=== PATIENT | female | born 2000 | race Caucasian/White ===

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

== ENCOUNTER 2021-01-01 08:51 | Emergency (ER) | payer MEDICAID, SELFPAY ==
--- NOTE | 2021-01-01 09:00 | RT.EKG_ITS ---
APPROVED REPORT Exam: Resting ECG Patient Location: E HR:81 bpm ECG Measurements Heart Rate 81 AXIS UT 143 P 71 QRSd 64 QRS 79 QT 348 T 59 QTc 405 Conclusion Sinus rhythm...normal P axis, V-rate 60- 99
[2021-01-01 09:09] VITALS: BP 121/74; PULSE 81; RESP 16; TEMP 36.9; O2SAT 98
--- NOTE | 2021-01-01 09:35 | ED.GENADUL_ITS ---
Discharge Plan Disposition Patient Disposition: HOME Condition: Fair Discharge Details Clinical Impression: Nausea & vomiting, Depression, Eating disorder Primary Care Provider: Danyelle Hernandez ED Provider: Gisell Peterson Home Meds and New Rx's Prescriptions: New ondansetron HCl [Zofran] 4 mg tablet 4 mg PO Q6H PRN (Reason: nausea and vomiting) Qty: 10 RF: 0 Continued Latuda 20 mg tablet 20 mg PO DAILY RF: 0 Nexplanon 68 mg implant 1 implant subdermal ONCE RF: 0 divalproex [Depakote] 250 mg tablet,delayed release (DR/EC) 500 mg PO HS RF: 0 acetaminophen 500 mg tablet 500 mg PO Q6H PRN (Reason: pain) Qty: 60 RF: 0 ibuprofen 600 mg tablet 600 mg PO TID PRN (Reason: pain) Qty: 60 RF: 0 pantoprazole [Protonix] 40 mg tablet,delayed release (DR/EC) 40 mg PO DAILY Qty: 30 RF: 0 albuterol sulfate [ProAir HFA] 200 PUFF HFA aerosol inhaler 2 puff Inhalation PRN PRNRF: 0 Fluticasone/Salmeterol [Advair 100-50 Diskus] 1 EACH Blst.W.Dev 1 ea Inhalation BID RF: 0 Discharge Instructions Instructions: Depression (ED), Acute Nausea and Vomiting (ED) Additional Instructions: Your labs are reassuring. However, I am concerned about your long-term health with your current eating habits. To help avoid stomach upset, please stick with a bland diet temporarily but encourage small frequent meals. Encourage fluid intake. Please continue with your medications as previously Zofran has been prescribed in the event that you have any recurrence of your nausea. Please take this as prescribed. The plan outlined by mental health is for you to begin receiving psychiatric care once again. Please begin weekly therapy sessions. Please call them anytime if you have any concerns or increased symptoms [phone] If you develop thoughts of self-harm, thoughts of harming others, inability stay hydrated, increased pain, fevers or other new/worsening symptoms please seek care urgently once again. Please follow up with your primary care this week for reevaluation. Call tomorrow to schedule appointment. Referrals: Danyelle Hernandez NP [Primary Care Provider] - Discharge Data Discharge Date/Time-TO BE ENTERED AT DEPARTURE: 01/01/21 12:05 Medical Decision Making Patient is a pleasant 20-year-old female presenting today with chief complaint of nausea and vomiting. She reports that she has had issues with eating disorder historically. States that 3 weeks ago mcmill[place] the anniversary of of a loved one. She reports that since that time she been having current symptoms. She reports that she has been waxing and waning through periods of anorexia followed by binge eating and self-induced vomiting. She reports that she has been going approximately 6 days with only water for p.o. intake. Will then binge eat for 1 to 2 days. States that she made herself vomit just prior to arrival. She is now having difficulty with more persistent nausea. She denies any thoughts of self-harm or suicidal ideation. Patient does not want inpatient psychiatric care. Rather, she would prefer outpatient management but does seem to have good personal insight regarding going on currently. On exam, patient appears sad and worried. She is crying while talking. She is thin. Her abdomen is otherwise benign. See no evidence to suggest a surgical abdomen. She appears well-hydrated. Vital signs within normal limit. Concerned for eating disorder. Will obtain baseline labs as I am concerned potential electrolyte abnormalities. We will hydrate the patient, treat her nausea and request mental health consultation. Labs reviewed. No leukocytosis. Stable H&H. Anion gap of 13 otherwise no significant abnormality. Electrolytes within normal limits. Did check a troponin with a concern for significant malnutrition in the setting of an eating disorder, WNL. EKG was obtained and reviewed by Dr. Alcantara. Patient is in sinus rhythm with a rate of 81. No acute ischemic changes noted. Patient was evaluated by Diana with [facility] human services. She has known the patient for several years and they have a very good rapport with her. She determined that the patient had also stopped attending counseling about 6 months ago. She is interested ins tarting again and will being weekly sessions during this difficult time. She will also help get her f/u with [facility]. Patient reassessed, she is feeling improved and would like d/c to home. She will call PCP to schedule prompt f/u. She has contact information for [facility]. She will return with any new/worsening sytmpoms. We discussed advancement of her diet. Food is now causing upset so we discussed methods that may allow her to be more successful. All of her questions and concerns were addressed, she is in agreementw itht his plan. HPI General Mode of arrival: ambulatory . Date/Time Provider Initiated Documentation: 01/01/21 09:35 . Limitations to Documentation: no limitations . Information obtained by: patient, RN notes reviewed and old records reviewed . History of Present Illness 20 year old F presents to the emergency department with the chief complaint of nausea and self-induced vomiting, described as moderate, Quality is described as other (cramping and nausea), and is localized to the abdomen. Patient reports no radiation. Patient started experiencing this week(s) (3) and it has been constant (waxes and wanes between anorexia and binge/purge). No relieving factors improve symptom(s), Other factors that worsen symptoms (recent increase in social stressors) . Patient notes loss of appetite and nausea/vomiting; denies chest pain, diaphoresis, fever/chills, rash and shortness of breath. Patient did receive the following treatments prior to arrival, none Related Data Home Medications Medication Instructions Recorded Confirmed albuterol sulfate [ProAir HFA] 2 puff INHALATION PRN PRN 05/19/17 01/01/21 Fluticasone/Salmeterol [Advair 1 ea INHALATION BID 03/06/18 01/01/21 100-50 Diskus] divalproex 250 mg tablet,delayed 500 mg PO HS tab 11/27/18 01/01/21 release acetaminophen 500 mg PO Q6H PRN #60 tab 03/03/19 01/01/21 ibuprofen 600 mg PO TID PRN #60 tab 03/03/19 01/01/21 lurasidone 20 mg tablet 20 mg PO DAILY 04/08/19 01/01/21 pantoprazole [Protonix] 40 mg PO DAILY #30 tab 01/21/20 01/01/21 etonogestrel 68 mg subdermal 1 implant SUBDERMAL ONCE 12/16/20 01/01/21 implant ondansetron HCl [Zofran] 4 mg PO Q6H PRN #10 tab 01/01/21 Previous Rx's Medication Instructions Recorded acetaminophen 500 mg PO Q6H PRN #60 tab 03/03/19 ibuprofen 600 mg PO TID PRN #60 tab 03/03/19 pantoprazole [Protonix] 40 mg PO DAILY #30 tab 01/21/20 ondansetron HCl [Zofran] 4 mg PO Q6H PRN #10 tab 01/01/21 Allergies Allergy/AdvReac Type Severity Reaction Status Date / Time doxycycline AdvReac Intermediate vomiting Verified 12/16/20 12:55 General Stated Complaint: Nausea/Vomit/Diar SIS: 3 Review of Systems Constitutional Constitutional: Reports as per HPI, Denies chills, Denies fatigue, Denies fever(s) and Denies headache(s) ENT Ears, Nose, Mouth, and Throat: Denies headache(s) Cardiovascular Cardiovascular: Reports as per HPI, Denies chest pain and Denies dyspnea Respiratory Respiratory: Reports as per HPI, Denies cough and Denies dyspnea Gastrointestinal Gastrointestinal: Reports as per HPI Musculoskeletal Musculoskeletal: Reports as per HPI and Denies back pain Integumentary/Breasts Skin/Breast: Reports as per HPI and Denies rash Neurologic Neurologic: Reports as per HPI and Denies headache(s) Psychiatric Psychiatric: Reports as per HPI, Reports anxiety, Reports change in appetite, Reports depression, Denies hopelessness, Denies homicidal ideation and Denies suicidal ideation Endocrine Endocrine: Denies fatigue PFSH Medical History Anxiety Asthma Depression Presence of subdermal contraceptive implant (04/18/20) Surgical History Hx of arthroscopic knee surgery Tonsillectomy and adenoidectomy age 10 Family History Mother No problems noted. Father No problems noted. Other Cancer Diabetes Social History Smoking/Tobacco Use Status: Current every day Tobacco Type: e-cigarettes Smoking risk assessment performed?: Yes Alcohol Intake: current Alcohol Intake frequency: a few times a month Alcohol type: hard liquor Drug use: Current Sobriety Substance use type: marijuana Details: e cigarette pt. uses daily Do you feel safe at home: Yes Do you feel safe in your relationship?: Yes Female Reproductive History Menstrual control method: none and progesterone injection Exam Const General: cooperative, healthy appearing, comfortable, no acute distress and well developed Nutritional Appearance: well nourished and thin Orientation: alert and awake HENMT Head: normal to inspection Mouth: moist mucous membranes Resp Effort & Inspection: normal respiratory effort, able to speak in complete sentences and no respiratory distress Auscultation: clear to auscultation bilaterally, no rales, no rhonchi and no wheezes Cardio Rate: regular rate Rhythm: regular rhythm Heart Sounds: S1 normal and S2 normal GI Inspection: normal to inspection and non-distended Palpation: soft, no hepatosplenomegaly and nontender Percussion: normal to percussion Auscultation: normal bowel sounds Skin General skin exam: no rashes or lesions noted Trauma: no lacerations or abrasions Neuro General: patient alert and patient awake Cognition: normal cognition Speech: speech normal Gait: normal gait Psych Appearance: grossly normal and well kempt Mental Status: mental status grossly normal Speech and Movement: speech and movement normal Mood: congruent mood Affect: sad Attitude: cooperative Thought Process: normal Thought Content: no homicidality and suicidality Insight: fair Judgment: fair Course Vital Signs Vital signs: Vital Signs Temperature 36.9 C 01/01/21 09:09 Pulse 81 01/01/21 09:09 Respiratory Rate 16 01/01/21 09:09 Blood Pressure 121/74 01/01/21 09:09 Pulse Oximetry 98 01/01/21 09:09 Temperature 36.9 C 01/01/21 09:09 Temperature Source Oral 01/01/21 09:09 Pulse 81 01/01/21 09:09 Respiratory Rate 16 01/01/21 09:09 Respiratory Effort 01/01/21 09:11 Blood Pressure 121/74 01/01/21 09:09 Blood Pressure Position Supine 01/01/21 09:09 Pulse Oximetry 98 01/01/21 09:09 Oxygen Delivery Method Room Air 01/01/21 09:09 Oxygen Flow Rate 0 01/01/21 09:09
[2021-01-01 09:45] LABS: Absolute Basophil Count 0.06 10^3/uL (0.0-0.2); Absolute Eosinophil Count 0.33 10^3/uL (0.0-0.7); Absolute Lymphocyte Count 1.54 10^3/uL (1.2-3.4); Absolute Monocyte Count 0.26 10^3/uL (0.1-0.8); Absolute Neutrophil Count 3.35 10^3/uL (1.2-6.7); Basophils % 1.1; Lymphocytes % 27.8; MCH 30.6 pg (27.0-33.0); MCV 87.5 fL (80-95); MPV 11.8 fL (8.0-11.0); Monocytes % 4.7; Neutrophils % 60.4; Nucleated RBC 0 %; Platelet Count 307 10^3/uL (130-400); RBC 4.57 10^6/uL (3.93-5.22); RDW-SD 38.4 fL; WBC 5.54 10^3/uL (4.4-10.8)
[2021-01-01] MEDS: Lactated Ringers 1,000 ML 1000 ML IV (09:47)
[2021-01-01] MEDS: Ondansetron 4 MG TAB PO (09:59)
[2021-01-01 10:01] LABS: ALT 30 U/L (14-59); AST 11 U/L (15-37); Albumin 4.7 g/dL (3.4-5.0); Alkaline Phosphatase 59 U/L (46-116); Anion Gap 13.1 mmol/L (3-11); BUN 7 mg/dL (7-18); Bilirubin, Total 0.6 mg/dL (0.2-1.0); CO2 25.9 mmol/L (21.0-32.0); CREATININE 0.7 mg/dL (0.55-1.02); Calcium 9.5 mg/dL (8.5-10.1); Chloride 102 mmol/L (98-107); Glucose 90 mg/dL (74-106); Magnesium 1.9 mg/dL (1.8-2.4); Potassium 3.6 mmol/L (3.5-5.1); Sodium 141 mmol/L (136-145); Total Protein 7.9 g/dL (6.4-8.2)
[2021-01-01 10:06] LABS: Troponin I < 0.05 ng/mL (<0.06)
[2021-01-01 10:22] LABS: Bilirubin Negative (Negative); Blood Negative (Negative); Clarity Clear (Clear); Glucose Negative (Negative); Ketones Negative (Negative); Leukocyte Esterase Negative (Negative); Nitrite Negative (Negative); Specific Gravity 1.015 (1.005-1.025); Urobilinogen 0.2 EU/dL (Up TO 0.2)
--- NOTE | 2021-01-01 11:55 | PDOC.MHCN ---
Date of service: 01/01/21 Time of Service: 11:55 Mental Health Crisis Note Presenting Issue How did you arrive at the ED and why did you come: Pt arrived today of her own choice due to nausea and vomiting. She expressed feelings of depression and so an assessment was requested. Precipitating Factors Pt denied SI and HI and there are no signs of delusions. 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 She is fine meeting with this clinician today. EYE CONTACT: Eye contact is good MOOD: Mood appears depressed and worried. AFFECT: Affect is normal. APPETITE: Pt reported that a month ago she struggled with her symptoms relating to her eating disorder and began binging and purging and then not eating for up to 6 days at a time. She presented today because she is no longer needing to purge she is just unable to keep anything down. SLEEP(trouble falling/staying asleep: Pt reported poor sleep only a few hours a night. Plan Pt agreed to a check in tonight and it will be discussed if another one tomorrow would benefit. She will outreach to her therapist as will this clinician to request an increase in sessions back to once a week until she igets through this difficult time. This clinician will put in a referral to [facility] to see a prescriber again. Signature Clinician's Name/Title: Diana Sanchez MS, [facility] Emergency Services Clinician, [facility]
[2021-01-01 12:00] VITALS: PULSE 88; O2SAT 98
== END 2021-01-01 12:05 | disposition home or self-care (01) ==
PROVIDERS: Emergency Provider Physician Assistant; PCP Nurse Practitioner Family
DX: R11.2 Nausea with vomiting, unspecified (principal); F32.9 Major depressive disorder, single episode, unspecified; F50.02 Anorexia nervosa, binge eating/purging type
CPT/HCPCS: 36415; 80053; 81025; 93005; 96361; 96374; 99284; 81003; 83735; 84484; 85025; 93010; 99283; J8597

== ENCOUNTER 2021-03-06 14:55 | Emergency (ER) | payer MEDICAID, SELFPAY ==
[2021-03-06 15:01] VITALS: BP 118/77; PULSE 77; RESP 16; TEMP 37; O2SAT 99
[2021-03-06] MEDS: Lidocaine 5% Patch 1 PATCH TP (15:50)
[2021-03-06] MEDS: Acetaminophen 325 MG TAB 650 MG PO (15:50)
[2021-03-06 15:53] LABS: Bilirubin Negative (Negative); Blood Trace-lysed (Negative); Clarity Sl Cloudy (Clear); Glucose Negative (Negative); Ketones Negative (Negative); Leukocyte Esterase Trace (Negative); Nitrite Negative (Negative); Specific Gravity 1.025 (1.005-1.025); Urobilinogen 0.2 EU/dL (Up TO 0.2)
--- NOTE | 2021-03-06 16:00 | DI.RAD_ITS ---
Exam(s) XR LUMBAR SPINE COMPLETE EXAM: XR LUMBAR SPINE COMPLETE CLINICAL HISTORY: Lumbar spine pain. TECHNIQUE: 2D digital imaging was performed. COMPARISON: No exams were available for comparison FINDINGS: BONES: No fracture or destructive lesion. Vertebral bodies are unremarkable. No facet hypertrophy debi ntified. DISKS: Intervertebral disc spaces are maintained. ALIGNMENT: Lumbar spinal alignment is within normal limits. SOFT TISSUE: Normal. IMPRESSION: Unremarkable radiographs of the lumbar spine. DATA REPOSITORY: RADIATION DOSE DELIVERED:
[2021-03-06 16:02] LABS: Bacteria Rare HPF (Negative); C & S Indicated? No/Sq. Contamination; Crystals Negative HPF (Negative); Epithelial Cells Many HPF (Negative); Mucus Heavy (Negative); RBC 0-2 HPF (0-2)
--- NOTE | 2021-03-06 16:12 | ED.GENADUL_ITS ---
Discharge Plan Disposition Patient Disposition: HOME Condition: Stable Discharge Details Clinical Impression: Lumbago of lumbar region with sciatica Primary Care Provider: Danyelle Hernandez ED Provider: Binud Mckeon Home Meds and New Rx's Prescriptions: New cyclobenzaprine 10 mg tablet 10 mg PO TID PRN (Reason: muscle spasm) Qty: 10 RF: 0 No Action Latuda 20 mg tablet 20 mg PO DAILY RF: 0 Nexplanon 68 mg implant 1 implant subdermal ONCE RF: 0 divalproex [Depakote] 250 mg tablet,delayed release (DR/EC) 500 mg PO HS RF: 0 acetaminophen 500 mg tablet 500 mg PO Q6H PRN (Reason: pain) Qty: 60 RF: 0 ibuprofen 600 mg tablet 600 mg PO TID PRN (Reason: pain) Qty: 60 RF: 0 albuterol sulfate [ProAir HFA] 200 PUFF HFA aerosol inhaler 2 puff Inhalation PRN PRNRF: 0 Fluticasone/Salmeterol [Advair 100-50 Diskus] 1 EACH Blst.W.Dev 1 ea Inhalation BID RF: 0 Discharge Instructions Instructions: Low Back Strain (ED), Lower Back Exercises (ED) Additional Instructions: Take muscle relaxer as directed. Please take Tylenol or Ibuprofen with food every 4-6 hours as needed for pain and swelling. Alternate ice and heat. Do some light stretching. Follow up with primary care provider in 3-5 days. Return to ED sooner if any worsening or concerns. Increase oral fluids. Referrals: Danyelle Hernandez, [employer] [Primary Care Provider] - Medical Decision Making 20-year-old female presents to the ER chief complaint lower back pain which radiates down to her bilateral thighs. She reports that this began yesterday upon awakening. She denies any heavy lifting or known injuries. Denies any loss of bowel or bladder control. She has been trying ibuprofen Biofreeze. She also denies any dysuria, vaginal discharge, or bleeding. Denies any nausea vomiting diarrhea no abdominal pain. She does have a history of anxiety, depression and eating disorder. On initial exam she does have some midline L- spine tenderness and paraspinous tenderness worse on the left. Imaging protocol: XR of lumbosacral spine. Views: 4 or 5 views. COMPARISON: CT ABDOMEN PELVIS W 01/26/2019 6:19 PM FINDINGS: Bones/joints: Normal. No acute fracture. Normal alignment. Soft tissues: Unremarkable. IMPRESSION: No acute findings. Discussed x-ray results with patient also discussed her urine results. Urine shows trace blood trace leukocytes patient informs me that she is on her current menses which could explain the blood and leukocytes in her urine. I did discuss possible CT abdomen pelvis to rule out kidney stone. Patient declines at this time. Discussed home care including alternating Tylenol ibuprofen massage ice and heat. Follow-up with PCP and Ortho verbalized understanding. Did give patient some cyclobenzaprine here in department and prescription sent to pharmacy on file. HPI General Mode of arrival: ambulatory . Date/Time Provider Initiated Documentation: 03/06/21 15:01 . Limitations to Documentation: no limitations . Information obtained by: patient . HPI Narrative: 20-year-old female presents to the ER chief complaint lower back pain which radiates down to her bilateral thighs. She reports that this began yesterday upon awakening. She denies any heavy lifting or known injuries. She has been trying ibuprofen Biofreeze. She also denies any dysuria, vaginal discharge, or bleeding. Denies any nausea vomiting diarrhea no abdominal pain. She does have a history of anxiety, depression and eating disorder. On initial exam she does have some midline L- spine tenderness and paraspinous tenderness worse on the left. Related Data Home Medications Medication Instructions Recorded Confirmed albuterol sulfate [ProAir HFA] 2 puff INHALATION PRN PRN 05/19/17 03/06/21 Fluticasone/Salmeterol [Advair 1 ea INHALATION BID 03/06/18 03/06/21 100-50 Diskus] divalproex 250 mg tablet,delayed 500 mg PO HS tab 11/27/18 03/06/21 release acetaminophen 500 mg PO Q6H PRN #60 tab 03/03/19 03/06/21 ibuprofen 600 mg PO TID PRN #60 tab 03/03/19 03/06/21 lurasidone 20 mg tablet 20 mg PO DAILY 04/08/19 03/06/21 etonogestrel 68 mg subdermal 1 implant SUBDERMAL ONCE 12/16/20 03/06/21 implant cyclobenzaprine 10 mg PO TID PRN #10 tab 03/06/21 Previous Rx's Medication Instructions Recorded acetaminophen 500 mg PO Q6H PRN #60 tab 03/03/19 ibuprofen 600 mg PO TID PRN #60 tab 03/03/19 cyclobenzaprine 10 mg PO TID PRN #10 tab 03/06/21 Allergies Allergy/AdvReac Type Severity Reaction Status Date / Time doxycycline AdvReac Intermediate vomiting Verified 03/06/21 15:06 General Stated Complaint: Nk/Back Pain SIS: 4 Review of Systems Narrative: Constitutional: Negative for weight loss, alert and oriented, well groomed, normal body habitus, appears comfortable. HEENT: Denies trauma, headaches, blurry vision, nasal discharge, sore throat, trouble swallowing. Chest: Denies chest pain, palpitations, irregular rhythm, hypertension. Respiratory: Denies Shortness of breath, cough, hemoptysis. GI: Denies abdominal pain, nausea, vomiting, diarrhea, constipation. : Denies dysuria, hematuria, flank pain, rectal bleeding. Neuro: Denies dizziness, blurry vision, weakness, syncope, headache or facial numbness. Hematologic: Denies easy bruising, intolerance to heat or cold, hair loss. PFSH Medical History Anxiety Asthma Depression Presence of subdermal contraceptive implant (04/18/20) Surgical History Hx of arthroscopic knee surgery Tonsillectomy and adenoidectomy age 10 Family History Mother No problems noted. Father No problems noted. Other Cancer Diabetes Social History Smoking/Tobacco Use Status: Current every day Tobacco Type: e-cigarettes Smoking risk assessment performed?: Yes Alcohol Intake: current Alcohol Intake frequency: a few times a month Alcohol type: hard liquor Drug use: Current Sobriety Substance use type: marijuana Details: e cigarette pt. uses daily Do you feel safe at home: Yes Do you feel safe in your relationship?: Yes Female Reproductive History Menstrual control method: none and progesterone injection Exam Narrative Exam Narrative: Constitutional: Alert and oriented x3. Appears stated age. Normal body habitus. Head: Normocephalic, no trauma. Eyes: Pupils PERRLA, Red reflex noted, EOM's intact. Eyelids symmetrical without lesions, discharge, or swelling. ENT: Bilateral TM's WNL, External ear normal to inspection, no mastoid TTP, swelling, or erythema, Nasal turbinates WNL, no nasal discharge. Normal dentition, Posterior pharynx WNL, no exudate. Chest: RRR, Normal S1, S2, distal pulses intact. Resp: Lungs clear to auscultation bilaterally, no wheezes, rales, or rhonchi. Abdomen: Soft, nondistended nontender to palpation quadrants Musculoskeletal: Normal gait, 5/5 strength to all four extremities. Patient does have some midline L-spine tenderness with palpation, left-sided paraspinal tenderness with palpation. Skin: No suspicious rashes or lesions. Capillary refill less than 2 sec. Neurologic: Cranial nerves II-XII intact. Alert and oriented x 3. DTR's intact. Hematologic/Lymphatic: No ecchymosis, no lymphadenopathy. Course Vital Signs Vital signs: Vital Signs Temperature 37 C 03/06/21 15:01 Pulse 77 03/06/21 15:01 Respiratory Rate 16 03/06/21 15:01 Blood Pressure 118/77 03/06/21 15:01 Pulse Oximetry 99 03/06/21 15:01 Temperature 37 C 03/06/21 15:01 Temperature Source Skin 03/06/21 15:01 Pulse 77 03/06/21 15:01 Respiratory Rate 16 03/06/21 15:01 Respiratory Effort Non-Labored 03/06/21 15:01 Blood Pressure 118/77 03/06/21 15:01 Blood Pressure Position Sitting 03/06/21 15:01 Pulse Oximetry 99 03/06/21 15:01 Oxygen Delivery Method Room Air 03/06/21 15:01 Oxygen Flow Rate 0 03/06/21 15:01 Pain Level 9 03/06/21 15:10 Lab/Test Results Lab/Test Results: Laboratory Tests Range/Units 03/06/21 15:44 Urine Color (Yellow) Yellow Urine Clarity (Clear) Sl Cloudy Urine pH (5-8) 7.0 Ur Specific [place] (1.005-1.025) 1.025 Urine Protein (Negative) mg/dL 30 H Urine Ketones (Negative) mg/dL Negative Urine Blood (Negative) Trace-lysed H Urine Nitrite (Negative) Negative Urine Bilirubin (Negative) Negative Urine Urobilinogen (Up TO 0.2) EU/dL 0.2 Ur Leukocyte Esterase (Negative) Trace H Urine RBC (0-2) HPF 0-2 Urine WBC (0-5) HPF 5-10 Ur Epithelial Cells (Negative) HPF Many Urine Crystals (Negative) HPF Negative Urine Bacteria (Negative) HPF Rare Urine Mucus (Negative) Heavy Ur Culture Indicated? No/Sq. Contamination Urine Glucose (Negative) mg/dL Negative POC- Test(urine) Negative
[2021-03-06] MEDS: Cyclobenzaprine 10 MG TAB PO (16:28)
--- NOTE | 2021-03-06 16:59 | DI.VRAD_ITS ---
PROCEDURE INFORMATION: Exam: XR Lumbosacral Spine Exam date and time: 03/06/2021 4:16 PM Age: 20 years old Clinical indication: Other: Lower back pain TECHNIQUE: Imaging protocol: XR of the lumbosacral spine. Views: 4 or 5 views. COMPARISON: CT ABDOMEN PELVIS W 01/26/2019 6:19 PM FINDINGS: Bones/joints: Normal. No acute fracture. Normal alignment. Soft tissues: Unremarkable. IMPRESSION: No acute findings. Dictated and Authenticated by: Nathaniel Espinoza MD. Ordering:GEOVANY Ruano MD
== END 2021-03-06 17:38 | disposition home or self-care (01) ==
PROVIDERS: Emergency Provider Registered Nurse Emergency; PCP Nurse Practitioner Family
DX: M54.42 Lumbago with sciatica, left side (principal); M54.41 Lumbago with sciatica, right side
CPT/HCPCS: 81025; 99283; 72110; 81003; 81015

== ENCOUNTER 2021-03-13 19:21 | Outpatient (REF) | payer MEDICAID, SELFPAY ==
[2021-03-13 20:53] LABS: HCT 40.1 % (36.0-46.0); HGB 13.4 g/dL (11.2-15.7); MCH 29.4 pg (27.0-33.0); MCHC 33.4 % (32.0-36.0); MCV 87.9 fL (80-95); MPV 12.2 fL (8.0-11.0); Platelet Count 306 10^3/uL (130-400); RBC 4.56 10^6/uL (3.93-5.22); RDW 11.8 % (11.7-14.6); WBC 6.05 10^3/uL (4.4-10.8)
[2021-03-13 21:23] LABS: Anion Gap 11.2 mmol/L (3-11); BUN 17 mg/dL (7-18); CO2 25.8 mmol/L (21.0-32.0); CREATININE 0.7 mg/dL (0.55-1.02); Calcium 9.8 mg/dL (8.5-10.1); Chloride 105 mmol/L (98-107); Glucose 90 mg/dL (74-106); Magnesium 2.1 mg/dL (1.8-2.4); Sodium 142 mmol/L (136-145); TSH 0.87 uIU/mL (0.52-4.13)
[2021-03-13 21:37] LABS: Vitamin D 25 Total 20.9 ng/mL (30-100)
== END 2021-03-13 19:22 | disposition home or self-care (01) ==
LOC: NCHCN 19:21
PROVIDERS: PCP Nurse Practitioner Family; Visit Provider Internal Medicine
DX: Z00.00 Encounter for general adult medical examination without abnormal findings (principal); F50.02 Anorexia nervosa, binge eating/purging type; F32.9 Major depressive disorder, single episode, unspecified
CPT/HCPCS: 80048; 82306; 85027; 83735; 84443

== ENCOUNTER 2021-04-19 13:12 | Emergency (ER) | payer MEDICAID, SELFPAY ==
[2021-04-19 13:17] VITALS: BP 119/69; PULSE 99; RESP 14; TEMP 36.7; O2SAT 100
--- NOTE | 2021-04-19 13:38 | ED.GENADUL_ITS ---
Discharge Plan Disposition Patient Disposition: HOME Condition: Stable Discharge Details Clinical Impression: Nausea and vomiting, Epigastric abdominal pain, Chronic nausea, Chronic abdominal pain Primary Care Provider: Danyelle Hernandez ED Provider: Ilana Dhaliwal Home Meds and New Rx's Prescriptions: New sucralfate [Carafate] 1 gram tablet 1 gm PO QACHS Qty: 14 RF: 0 ondansetron 4 mg tablet,disintegrating 4 mg PO TID PRN (Reason: nausea and vomiting) Qty: 6 RF: 0 famotidine [Pepcid] 20 mg tablet 20 mg PO DAILY Qty: 14 RF: 0 Continued etonogestrel-ethinyl estradiol [NuvaRing] 0.12-0.015 mg/24 hr ring 1 vag ring vaginal Q4W Qty: 3 RF: 4 acetaminophen 500 mg tablet 500 mg PO Q6H PRN (Reason: pain) Qty: 60 RF: 0 ibuprofen 600 mg tablet 600 mg PO TID PRN (Reason: pain) Qty: 60 RF: 0 calcium carbonate-vit D3-min 600 mg calcium- 400 unit tablet RF: 0 albuterol sulfate [ProAir HFA] 200 PUFF HFA aerosol inhaler 2 puff Inhalation PRN PRNRF: 0 cyclobenzaprine 10 mg tablet 10 mg PO TID PRN (Reason: muscle spasm) Qty: 10 RF: 0 Discharge Instructions Instructions: Acute Nausea and Vomiting (ED), Epigastric Pain (ED) Additional Instructions: Drink plenty of fluids and get plenty of rest. Take the Zofran as needed and directed for nausea and vomiting. Take the Pepcid and Carafate daily as directed. Your prescriptions have been sent electronically to your pharmacy. Call the pharmacy to make sure your prescriptions are ready before pickup. Take the prescriptions as directed. Call the general surgery office tomorrow to schedule a follow-up appointment for reevaluation and for possible outpatient upper endoscopy for further evaluation of your chronic nausea and upper abdominal pain. Return immediately to the emergency department if you develop any worsening or new concerning symptoms such as fever, persistent vomiting, worsening pain or any other concerns. Referrals: Mansi Greer MD [ [facility] STAFF PHYSICIAN] - Discharge Data Discharge Date/Time-TO BE ENTERED AT DEPARTURE: 04/19/21 17:55 Discharge Physician: Ilana Dhaliwal Medical Decision Making <John Alcantara MD - Last Filed: 04/19/21 14:09> 20 yo female with hx of anorexia, asthma, who comes in with cc of upper abdomen pain intermittent for a week and lack of appetite. Denies vomit, fevers, chest pain, dyspnea. Denies alcohol or drug use, does vape per patient. She has tenderness on exam in the ruq, epigastric area and left upper abdomen. She has no lower abdomen tenderness. Suspect gastritis vs hepatitis vs pancreatitis, less likely cholecystitis. Will obtain labs, u/s and administer IVF and reassess. Will also treat for possible gastritis. She has no lower abdomen tenderness so doubt entities such as ovarian torsion, appendicitis or diverticulitis pt signed out to oncoming provider pending u/s results and reevaluation Differential Diagnosis Differential Diagnosis: gastritis, hepatitis, cholecystitis Lab Data Lab results reviewed: Yes I reviewed the patient's lab results. <Ilana Dhaliwal DO - Last Filed: 04/19/21 22:45> 1500 -- please see Dr. Alcantara's note for initial presentation, exam and plan. Case endorsed to follow-up on labs and ultrasound and final disposition. Labs reviewed. Normal white blood cell count. Normal electrolytes. Normal lipase. Urine test negative. 1730 -- Patient reassessed and her symptoms unchanged. She was given Zofran, Pepcid and Carafate p.o. with some improvement of symptoms and feels good to go home. Prescription sent electronically to her pharmacy. She has anorexia and bulimia which is being followed by her pcp and she has been referred to behavioral health. She was placed on surgery follow-up list for reevaluation and consideration for upper endoscopy if symptoms do not improve or worsen. Usual and customary return precautions given prior to discharge. Medical Records Medical records reviewed: Yes I reviewed the patient's medical records. Imaging Data Radiologic Study: Radiologist's impression: US ABDOMEN CLINICAL HISTORY: upper abdomen pain TECHNIQUE: Ultrasound of complete upper abdomen performed using standard protocol. COMPARISON: No exams were available for comparison FINDINGS: There is no ascites evident. LIVER: There are no hepatic lesions evident nor obvious dilatation of intrahepatic ducts. GALLBLADDER/BILIARY: There are no gallstones. No gallbladder wall edema nor pericholecystic fluid. The common hepatic duct isnot dilated, measuring 2-3mm at the level of xavi hepatis. PANCREAS: There is no evidence of pancreatic mass nor dilatation of the pancreatic duct. SPLEEN: The spleen is not enlarged and there are no intrasplenic lesions evident. KIDNEYS:Kidneys exhibit normal size with no evidence of solid mass, calculus, nor hydronephrosis. No cortical cysts evident. ABDOMINAL AORTA: There is no evidence of abdominal aortic aneurysm. IVC: Normal diameter where visualized. Other: Incidentally noted is biphasic flow in the portal vein, this of questionable significance. IMPRESSION: 1. No evidence of cholelithiasis nor dilatation of the biliary tree. 2. No other significant ultrasound findings in the upper abdomen. 3. Incidentally noted is biphasic blood flow in the portal vein. This of questionable significance. Lab Data Lab results reviewed: Yes I reviewed the patient's lab results. Labs: Laboratory Tests Range/Units 04/19/21 04/19/21 04/19/21 13:50 13:50 17:05 WBC (4.4-10.8) 10^3/uL 5.45 RBC (3.93-5.22) 10^6/uL 4.51 Hgb (11.2-15.7) g/dL 13.2 Hct (36.0-46.0) % 39.8 MCV (80-95) fL 88.2 MCH (27.0-33.0) pg 29.3 MCHC (32.0-36.0) % 33.2 RDW (11.7-14.6) % 12.2 Plt Count (130-400) 10^3/uL 325 MPV (8.0-11.0) fL 10.9 Immature Gran % 0.2 Neutrophils % 55.1 Lymphocytes % 31.0 Monocytes % 5.3 Eosinophils % 7.3 Basophils % 1.1 Nucleated RBC % % 0 Absolute Neutrophils (1.2-6.7) 10^3/uL 3.00 Absolute Lymphocytes (1.2-3.4) 10^3/uL 1.69 Absolute Monocytes (0.1-0.8) 10^3/uL 0.29 Absolute Eosinophils (0.0-0.7) 10^3/uL 0.40 Absolute Basophils (0.0-0.2) 10^3/uL 0.06 Sodium (136-145) mmol/L 141 Potassium (3.5-5.1) mmol/L 3.5 Chloride (98-107) mmol/L 103 Carbon Dioxide (21.0-32.0) mmol/L 29.2 Anion Gap (3-11) mmol/L 8.8 BUN (7-18) mg/dL 11 Creatinine (0.55-1.02) mg/dL 0.7 Estimated GFR/1.73 m2 (mL/min/1.73m2) >= 60.00 Glucose (74-106) mg/dL 92 Calcium (8.5-10.1) mg/dL 9.4 Magnesium (1.8-2.4) mg/dL 1.9 Total Bilirubin (0.2-1.0) mg/dL 0.7 Conjugated Bilirubin (0.0-0.2) mg/dL 0.1 AST (15-37) U/L 12 L ALT (14-59) U/L 25 Alkaline Phosphatase (46-116) U/L 59 Total Protein (6.4-8.2) g/dL 7.8 Albumin (3.4-5.0) g/dL 4.8 Lipase (73-393) U/L 132 Urine Color (Yellow) Yellow Urine Clarity (Clear) Clear Urine pH (5-8) 7.0 Ur Specific [place] (1.005-1.025) 1.020 Urine Protein (Negative) mg/dL Negative Urine Ketones (Negative) mg/dL Negative Urine Blood (Negative) Negative Urine Nitrite (Negative) Negative Urine Bilirubin (Negative) Negative Urine Urobilinogen (Up TO 0.2) EU/dL 0.2 Ur Leukocyte Esterase (Negative) Negative Urine Glucose (Negative) mg/dL Negative HPI <John Alcantara MD - Last Filed: 04/19/21 14:09> General Mode of arrival: ambulatory . Date/Time Provider Initiated Documentation: 04/19/21 13:13 . Limitations to Documentation: no limitations . Information obtained by: patient . History of Present Illness 20 year old F presents to the emergency department with the chief complaint of abdomen pain, described as moderate, Quality is described as aching, Patient started experiencing this week(s) (1) and it has been intermittent. No relieving factors improve symptom(s), No exacerbating factors reported . Patient notes other (no appetite). Patient did receive the following treatments prior to arrival, none Related Data Home Medications Medication Instructions Recorded Confirmed albuterol sulfate [ProAir HFA] 2 puff INHALATION PRN PRN 05/19/17 04/19/21 acetaminophen 500 mg PO Q6H PRN #60 tab 03/03/19 04/19/21 ibuprofen 600 mg PO TID PRN #60 tab 03/03/19 04/19/21 cyclobenzaprine 10 mg PO TID PRN #10 tab 03/06/21 04/19/21 etonogestrel 0.12 mg-ethinyl 1 vag ring VAGINAL Q4W #3 ea 03/20/21 04/19/21 estradiol 0.015 mg/24 hr vaginal ring calcium carbonate-vit D3-min tab 04/19/21 04/19/21 famotidine [Pepcid] 20 mg PO DAILY #14 tab 04/19/21 ondansetron 4 mg PO TID PRN #6 tab 04/19/21 sucralfate [Carafate] 1 gm PO QACHS #14 tab 04/19/21 Previous Rx's Medication Instructions Recorded acetaminophen 500 mg PO Q6H PRN #60 tab 03/03/19 ibuprofen 600 mg PO TID PRN #60 tab 03/03/19 cyclobenzaprine 10 mg PO TID PRN #10 tab 03/06/21 etonogestrel 0.12 mg-ethinyl 1 vag ring VAGINAL Q4W #3 ea 03/20/21 estradiol 0.015 mg/24 hr vaginal ring famotidine [Pepcid] 20 mg PO DAILY #14 tab 04/19/21 ondansetron 4 mg PO TID PRN #6 tab 04/19/21 sucralfate [Carafate] 1 gm PO QACHS #14 tab 04/19/21 Allergies Allergy/AdvReac Type Severity Reaction Status Date / Time doxycycline AdvReac Intermediate vomiting Verified 04/19/21 13:20 amoxicillin AdvReac Unverified 04/19/21 13:20 General Stated Complaint: Abd Prob SIS: 3 Review of Systems <John Alcantara MD - Last Filed: 04/19/21 14:09> All systems reviewed & are unremarkable except as noted in HPI and below Constitutional Constitutional: Denies chills, Denies fever(s) and Denies weakness Cardiovascular Cardiovascular: Denies chest pain and Denies dyspnea Respiratory Respiratory: Denies cough and Denies dyspnea Gastrointestinal Gastrointestinal: Denies vomiting Musculoskeletal Musculoskeletal: Denies joint swelling Neurologic Neurologic: Denies weakness PFSH <John Alcantara MD - Last Filed: 04/19/21 14:09> Medical History Anxiety Asthma Depression Surgical History Hx of arthroscopic knee surgery Tonsillectomy and adenoidectomy age 10 Family History Mother No problems noted. Father No problems noted. Other Cancer Diabetes Social History (Updated 04/09/21 @ 21:44 by Stephanie Wheeler MD) Smoking/Tobacco Use Status: Current every day Tobacco Type: e-cigarettes Smoking risk assessment performed?: Yes Alcohol Intake: former Drug use: Current Sobriety Substance use type: marijuana Details: e cigarette pt. 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 Do you feel safe at home: Yes Do you feel safe in your relationship?: Yes Female Reproductive History Menstrual control method: none and progesterone injection Exam <John Alcantara MD - Last Filed: 04/19/21 14:09> Const General: no acute distress Orientation: alert [facility] Head: normal to inspection Ears: external ears normal General nose exam: external nose normal Mouth: moist mucous membranes Eyes General: appearance normal, both eyes and all related structures Neck Neck: normal visual inspection Resp Effort & Inspection: normal respiratory effort and able to speak in complete sentences Cardio Rate: regular rate GI Palpation: soft, not rigid and tender Skin General skin exam: no rashes or lesions noted Neuro General: patient alert and patient oriented x3 Extrem General: normal to inspection Psych Mental Status: mental status grossly normal Course <John Alcantara MD - Last Filed: 04/19/21 14:09> Vital Signs Vital signs: Vital Signs Temperature 36.7 C 04/19/21 13:17 Pulse 99 H 04/19/21 13:17 Respiratory Rate 14 04/19/21 13:17 Blood Pressure 119/69 04/19/21 13:17 Pulse Oximetry 100 04/19/21 13:17 Temperature 36.7 C 04/19/21 13:17 Temperature Source Skin 04/19/21 13:17 Pulse 99 H 04/19/21 13:17 Respiratory Rate 14 04/19/21 13:17 Respiratory Effort Non-Labored 04/19/21 13:22 Blood Pressure 119/69 04/19/21 13:17 Blood Pressure Position Sitting 04/19/21 13:17 Pulse Oximetry 100 04/19/21 13:17 Oxygen Delivery Method Room Air 04/19/21 13:17 Oxygen Flow Rate 0 04/19/21 13:17 Pain Level 6 04/19/21 13:17 Sign Out <John Alcantara MD - Last Filed: 04/19/21 14:09> Sign Out Data: Sign Out Comment: history of anorexia, intermittent upper abdomen pain no lower abdomen tenderness, pending abdomen ultrasound Last updated by John Alcantara MD at 04/19/21 14:08
--- NOTE | 2021-04-19 13:45 | DI.US_ITS ---
Exam(s) US ABDOMEN EXAM: US ABDOMEN CLINICAL HISTORY: upper abdomen pain TECHNIQUE: Ultrasound of complete upper abdomen performed using standard protocol. COMPARISON: No exams were available for comparison FINDINGS: There is no ascites evident. LIVER: There are no hepatic lesions evident nor obvious dilatation of intrahepatic ducts. GALLBLADDER/BILIARY: There are no gallstones. No gallbladder wall edema nor pericholecystic fluid. The common hepatic duct isnot dilated, measuring 2-3mm at the level of xavi hepatis. PANCREAS: There is no evidence of pancreatic mass nor dilatation of the pancreatic duct. SPLEEN: The spleen is not enlarged and there are no intrasplenic lesions evident. KIDNEYS:Kidneys exhibit normal size with no evidence of solid mass, calculus, nor hydronephrosis. No cortical cysts evident. ABDOMINAL AORTA: There is no evidence of abdominal aortic aneurysm. IVC: Normal diameter where visualized. Other: Incidentally noted is biphasic flow in the portal vein, this of questionable significance. IMPRESSION: 1. No evidence of cholelithiasis nor dilatation of the biliary tree. 2. No other significant ultrasound findings in the upper abdomen. 3. Incidentally noted is biphasic blood flow in the portal vein. This of questionable significance. DATA REPOSITORY:
[2021-04-19] MEDS: Normal Saline 1,000 ML 1000 ML IV (13:56)
[2021-04-19] MEDS: Normal Saline Flush 10 ML SYR IVP (13:57)
[2021-04-19 14:05] LABS: Abs Immature Grans 0.01 10^3/uL (0.0-0.06); Absolute Basophil Count 0.06 10^3/uL (0.0-0.2); Absolute Lymphocyte Count 1.69 10^3/uL (1.2-3.4); Absolute Monocyte Count 0.29 10^3/uL (0.1-0.8); Basophils % 1.1; Eosinophils % 7.3; HCT 39.8 % (36.0-46.0); HGB 13.2 g/dL (11.2-15.7); Immature Grans % 0.2; MCH 29.3 pg (27.0-33.0); MCHC 33.2 % (32.0-36.0); MCV 88.2 fL (80-95); MPV 10.9 fL (8.0-11.0); Monocytes % 5.3; Neutrophils % 55.1; Nucleated RBC 0 %; Platelet Count 325 10^3/uL (130-400); RBC 4.51 10^6/uL (3.93-5.22); RDW 12.2 % (11.7-14.6); RDW-SD 39.3 fL; WBC 5.45 10^3/uL (4.4-10.8)
[2021-04-19 14:31] LABS: ALT 25 U/L (14-59); AST 12 U/L (15-37); Albumin 4.8 g/dL (3.4-5.0); Alkaline Phosphatase 59 U/L (46-116); Anion Gap 8.8 mmol/L (3-11); BUN 11 mg/dL (7-18); Bilirubin, Direct 0.1 mg/dL (0.0-0.2); Bilirubin, Total 0.7 mg/dL (0.2-1.0); CO2 29.2 mmol/L (21.0-32.0); CREATININE 0.7 mg/dL (0.55-1.02); Calcium 9.4 mg/dL (8.5-10.1); Chloride 103 mmol/L (98-107); Glucose 92 mg/dL (74-106); Lipase 132 U/L (73-393); Magnesium 1.9 mg/dL (1.8-2.4); Potassium 3.5 mmol/L (3.5-5.1); Sodium 141 mmol/L (136-145); Total Protein 7.8 g/dL (6.4-8.2)
[2021-04-19] MEDS: Sucralfate 1 GM TAB PO (16:47)
[2021-04-19] MEDS: Ondansetron O.D.T. 4 MG TABEF PO (16:47)
[2021-04-19] MEDS: Famotidine 20 MG TAB PO (16:47)
[2021-04-19] MEDS: Ondansetron O.D.T. 4 MG TABEF, 3 TABS/BTL PO (17:49)
[2021-04-19 17:54] LABS: Bilirubin Negative (Negative); Blood Negative (Negative); Clarity Clear (Clear); Glucose Negative (Negative); Ketones Negative (Negative); Leukocyte Esterase Negative (Negative); Nitrite Negative (Negative); Urobilinogen 0.2 EU/dL (Up TO 0.2)
--- NOTE | 2021-04-19 22:44 | NUR.NOTE ---
Referral to [facility] 2 week f/u chronic nausea, epigastric pain.Nursing Note:
== END 2021-04-19 17:55 | disposition home or self-care (01) ==
PROVIDERS: Emergency Medicine; Emergency Provider Physician Assistant; PCP Nurse Practitioner Family
DX: R11.2 Nausea with vomiting, unspecified (principal); R10.13 Epigastric pain
CPT/HCPCS: 36415; 80053; 81025; 83690; 96360; 96361; 99284; 76700; 81003; 82248; 83735; 85025

== ENCOUNTER 2021-05-01 04:55 | Outpatient (CLI) | payer MEDICAID, SELFPAY ==
--- NOTE | 2021-05-01 13:00 | NS.NUTBLAN_ITS ---
Reyna was referred to Medical Nutrition Therapy for dietary management of anorexia with purging. Does not want to be weighed. Med chart indicates 5'2.5 90.8 lbs BMI 16. Reports menarche at age 10. Started to restrict in 6th grade due to bulllying by older student. Scheduled for upper endoscopy next week. Reports purging comes easily and that she tends to binge 1-2 times per month, later purge. Typical binge > 3000 kcal, unable to stop binge when it starts. Reports having no period, hair loss, feeling cold and tired, difficulty sleeping for more than 4 hours. PMH: bipoloar disorder, depression, hx of self harm. Not getting counseling or medications at this time. PCP arranging for tele medicine for psych. Does not label foods as good and bad. 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 c/o stomach aches, nausea. no constipation. Has GERD. Estimated Needs: 7842-4577 kcal, 45-55 g protein, 45-55 g fat, 1500 ml fluid Session today focused on Reyna's goals for counseling at this time. She reports wanting to get healthier so she can have a family one day. She want to re-feed with mostly liquid foods. Created meal plan of smoothie bowls and smoothie's supplemented with whey protein to meet nutrient needs. She is willing to drink gingerale and fruit punch for beverages. She is agreeable to meet every 2 weeks to discuss body image, meal intake. Follow up appt. 05/16/21 at 1 pm.
== END 2021-05-01 04:56 | disposition home or self-care (01) ==
LOC: DS 04:55
PROVIDERS: PCP Nurse Practitioner Family; Visit Provider Dietitian, Registered
DX: F50.02 Anorexia nervosa, binge eating/purging type (principal); Z68.1 Body mass index [BMI] 19.9 or less, adult; Z71.3 Dietary counseling and surveillance
CPT/HCPCS: 97802

== ENCOUNTER 2021-05-03 02:34 | Outpatient (CLI) | payer MEDICAID, SELFPAY ==
[2021-05-03 10:46] LABS: Source Nasal/Nares
[2021-05-03 13:01] LABS: COVID-19 PCR Negative (Negative)
== END 2021-05-03 02:35 | disposition home or self-care (01) ==
LOC: LBO 02:34
PROVIDERS: Surgery; PCP Nurse Practitioner Family; Visit Provider Surgery
DX: Z20.822 Contact with and (suspected) exposure to COVID-19 (principal); Z01.818 Encounter for other preprocedural examination
CPT/HCPCS: 87635

== ENCOUNTER 2021-05-05 11:51 | Day surgery (SDC) | payer MEDICAID, SELFPAY ==
[2021-05-05 12:01] VITALS: BP 123/81; PULSE 100; RESP 18; TEMP 36.6; O2SAT 100
[2021-05-05] MEDS: Lactated Ringers 1,000 ML 80 ML IV (12:27)
--- NOTE | 2021-05-05 13:05 | ANES.PREOP_ITS ---
General Info Date of Service Date Performed: 05/05/21 Height: 5 ft 2 in Weight: 40.5 kg Body Mass Index (BMI): 16.3 Surgical Procedure: Operation Date: 05/05/21 10:50 Proposed Procedures Side Surgeon p Gastroscopy Krystal Velasquez, DO Meds Allergies and Home Medications Allergies Allergy/AdvReac Type Severity Reaction Status Date / Time amoxicillin AdvReac Intermediate vomiting Unverified 05/05/21 12:05 doxycycline AdvReac Intermediate vomiting Verified 05/05/21 12:05 Home Medication Medication Instructions Recorded albuterol sulfate [ProAir HFA] 2 puff INHALATION PRN PRN 05/19/17 acetaminophen 500 mg PO Q6H PRN #60 tab 03/03/19 ibuprofen 600 mg PO TID PRN #60 tab 03/03/19 cyclobenzaprine 10 mg PO TID PRN #10 tab 03/06/21 calcium carbonate-vit D3-min 1 tab PO DAILY 04/19/21 famotidine [Pepcid] 20 mg PO DAILY #14 tab 04/19/21 ondansetron 4 mg PO TID PRN #6 tab 04/19/21 sucralfate [Carafate] 1 gm PO QACHS #14 tab 04/19/21 Current Visit Medications: Current Medications Generic Name Dose Route Start Last Admin Trade Name Freq PRN Reason Stop Dose Admin Hyoscyamine Sulfate 0.125 mg 05/04/21 21:51 Hyoscyamine 0.125 Mg Sl/Oral/Chew SL DIRECTED PRN Ringer's Solution 1,000 mls @ 80 mls/hr 05/05/21 06:00 05/05/21 12:27 IV 06/03/21 23:59 80 mls/hr INFUSION CORNELIO Administration IV Miscellaneous Supplies 1 each 05/05/21 06:00 Iv Access IV 06/03/21 23:59 DIRECTED CORNELIO Ondansetron HCl 4 mg 05/04/21 21:51 Ondansetron 4 Mg/2 Ml Vial IVP Q4H PRN PRN Nausea / Vomiting Sodium Chloride 0 ml 05/05/21 06:00 Normal Saline Flush 10 Ml Syr IV 06/03/21 23:59 PRN PRN Sodium Chloride 0 ml 05/05/21 06:00 Normal Saline 10 Ml Vial IJ 06/03/21 23:59 DIRECTED PRN Sterile Water 0 ml 05/05/21 06:00 Water,Injection,Sterile 10 Ml Vial IJ 06/03/21 23:59 DIRECTED PRN PFSH Active Problems Active Problems: Problem Status Onset Code Bipolar 1 disorder F31.9 Vomiting R11.10 Nausea and vomiting R11.2 Epigastric abdominal pain R10.13 Chronic nausea R11.0 Chronic abdominal pain R10.9, G89.29 Left knee pain M25.562 Encounter for Nexplanon removal Z30.46 Contraception Z30.9 Nausea & vomiting R11.2 Depression F32.9 Eating disorder F50.9 Lumbago of lumbar region with sciatica M54.40 Patellofemoral disorders, left knee M22.2X2 Bone spur of other site M77.9 Asthma J45.909 Depression F32.9 Anxiety F41.9 Contraception 04/15/17 Z30.9 Medical History Medical History Anxiety Asthma Depression Surgical History Surgical History Hx of arthroscopic knee surgery Tonsillectomy and adenoidectomy age 10 Tobacco Smoking/Tobacco Use Status: Current every day Tobacco Type: e-cigarettes Alcohol Alcohol Intake: former Substance Use Substance use: Current Sobriety Substance use type: does not use Details: e cigarette pt. uses daily Vital Signs and Lab Results Vital Signs Most Recent Vital Signs in EMR: Most Recent Vital Signs Temp Pulse Resp BP Pulse Ox 36.6 C 100 H 18 123/81 100 05/05/21 12:01 05/05/21 12:01 05/05/21 12:01 05/05/21 12:01 05/05/21 12:01 Point of Care Results Point of Care Results: POC- Test(urine) Negative 05/05/21 12:30 Lab Results Result Diagrams: 05/05/21 09:00 Blood Type / Crossmatch: No Data to Display Complete Blood Count: White Blood Count 5.45 10^3/uL (4.4-10.8) 04/19/21 13:50 04/19/21 Red Blood Count 4.51 10^6/uL (3.93-5.22) 04/19/21 13:50 04/19/21 Hemoglobin 13.2 g/dL (11.2-15.7) 04/19/21 13:50 04/19/21 Hematocrit 39.8 % (36.0-46.0) 04/19/21 13:50 04/19/21 Platelet Count 325 10^3/uL (130-400) 04/19/21 13:50 04/19/21 Complete Metabolic Panel: Sodium Level 141 mmol/L (136-145) 04/19/21 13:50 04/19/21 Potassium Level 3.5 mmol/L (3.5-5.1) 04/19/21 13:50 04/19/21 Chloride Level 103 mmol/L (98-107) 04/19/21 13:50 04/19/21 Carbon Dioxide Level 29.2 mmol/L (21.0-32.0) 04/19/21 13:50 04/19/21 Blood Urea Nitrogen 11 mg/dL (7-18) 04/19/21 13:50 04/19/21 Creatinine 0.7 mg/dL (0.55-1.02) 04/19/21 13:50 04/19/21 Estimated GFR/1.73 m2 >= 60.00 (mL/min/1.73m2) 04/19/21 13:50 04/19/21 Magnesium Level 1.9 mg/dL (1.8-2.4) 04/19/21 13:50 04/19/21 Calcium Level 9.4 mg/dL (8.5-10.1) 04/19/21 13:50 04/19/21 Albumin 4.8 g/dL (3.4-5.0) 04/19/21 13:50 04/19/21 Glucose Level 92 mg/dL (74-106) 04/19/21 13:50 04/19/21 C-Reactive Protein Pending 05/04/21 23:59 05/04/21 Liver Function Panel: Alanine Aminotransferase (ALT/SGPT) 25 U/L (14-59) 04/19/21 13:50 04/19/21 Aspartate Amino Transf (AST/SGOT) 12 U/L (15-37) L 04/19/21 13:50 04/19/21 Coagulation Panel: INR International Normalized Ratio Pending 05/05/21 09:00 05/05/21 Prothrombin Time Pending 05/05/21 09:00 05/05/21 Cardiac Panel: No Data to Display Arterial Blood Gas: No Data to Display Venous Blood Gas: No Data to Display Pancreas Panel: Lipase 132 U/L (73-393) 04/19/21 13:50 04/19/21 Thyroid Panel: No Data to Display Infectious Disease: Coronavirus (COVID-19)(PCR) Negative (Negative) 05/03/21 09:48 05/03/21 Coronavirus 2019 Source Nasal/Nares 05/03/21 09:48 05/03/21 Blood Cultures: No Data to Display Toxicology Panel: 2 No Data to Display Panel: No Data to Display Anesthesia Assessment and Plan Anesthesia History Personal History: No History of Anesthesia Complications Family History: No Family History of Anesthesia Complications Exercise Tolerance Exercise Tolerance: Metabolic Equivalents>4 Cardiac & Pulmonary Exam Cardiac Exam: Normal S1/S2 Heart Sounds Pulmonary Exam: Clear Bilateral Breath Sounds Airway Exam Known Difficult Airway: No Mallampati Class: 2 Mouth Opening: Narrow (< 3cm) Thyromental Distance: Less than 3 cm Neck Range of Motion: Full ROM Neck Circumference: Normal Teeth Condition: Normal Dentition ASA Classification ASA Score: ASA 2 Emergency Case?: No NPO Status NPO Status: NPO Clears >2 hours, Solids >8 hours Status Status: Negative HCG Anesthesia Plan Resuscitation Status: Full Code Anesthesia Technique: General Anesthesia Airway Planned: Natural Airway Monitors Used: Standard Monitors Preoperative Comments:: 20 yo female for EGD 2/2 vomiting. sig PMHx of asthma (will use albut prior to EGD), denies major cardiac, liver, renal, neuro issues.
[2021-05-05 13:08] VITALS: BMI 16.3
[2021-05-05 13:19] LABS: Magnesium 1.9 mg/dL (1.8-2.4)
[2021-05-05 13:25] LABS: INR 1.2 (0.9-1.1); Prothrombin Time 11.6 sec (9.3-11.0)
[2021-05-05 13:32] LABS: ALT 24 U/L (14-59); AST 11 U/L (15-37); Alkaline Phosphatase 65 U/L (46-116); Anion Gap 10.2 mmol/L (3-11); BUN 15 mg/dL (7-18); Bilirubin, Total 0.4 mg/dL (0.2-1.0); CO2 24.8 mmol/L (21.0-32.0); CREATININE 0.7 mg/dL (0.55-1.02); Calcium 8.9 mg/dL (8.5-10.1); Chloride 105 mmol/L (98-107); Glucose 88 mg/dL (74-106); Potassium 3.9 mmol/L (3.5-5.1); Sodium 140 mmol/L (136-145); TSH (W/Ref FT4) 0.59 uIU/mL (0.52-4.13)
--- NOTE | 2021-05-05 13:32 | BOWEL_PTH ---
PATIENT: Reyna Chang LOC: [facility] U#:[id number] AGE/SX: 20/F ROOM: RE05/05/[address]: Krystal Velasquez : 2000 BED: DIS: 05/05/2021 SPEC #: [id number] RECD: 05/05/21 14:44 STATUS: VARUN REAmanda #: [id number] GILLIAN: 05/05/21 13:[address]: Krystal Velasquez DEPT: Surgical Specimen RECD BY: Maggie Marie ENTERED: 05/05/21 14:47 SP TYPE: Bowel OTHR DR: Danyelle Hernandez Tissues: 1 - BIOPSY BOWEL 2 - BIOPSY BOWEL 3 - STOMACH BIOPSY 4 - STOMACH BIOPSY 5 - ESOPHAGUS BIOPSY 6 - ESOPHAGUS BIOPSY Procedures: GROSS AND MICRO LEVEL 4 Comments: [id number]
[2021-05-05 13:33] LABS: C-Reactive Protein < 0.05 mg/dL (0.0-0.3)
--- NOTE | 2021-05-05 13:42 | ENDO_ITS ---
Date of service: 06/07/21 Time of Service: 13:42 Endoscopy Report DATE OF PROCEDURE: 05/05/21 PRE-OP DIAGNOSIS: GERD POST-OP DIAGNOSIS: same PROCEDURE: egd w/ bx SURGEON: Krystal Velasquez ANESTHESIA TYPE: General:No Airway ESTIMATED BLOOD LOSS: 1 PATHOLOGY: other COMPLICATIONS: None DISPOSITION: same day PROCEDURE DESCRIPTION: After informed consent was obtained the patient was take to the procedure room and placed in a supine position. Monitors were applied and a time out was done. The patients name, date of , procedure type, allergies to medications and metal in their body was reviewed. A bite block was placed and the patient was sedated. Once sedated and comfortable the gastroscope was advanced through the oropharynx which was grossly normal into the esophagus. The proximal and mid-esophagus were . In the distal esophagus there was noted. The scope was advanced into the stomach and through the pylorus into the 3rd portion of the duodenum. The duodenum was noted to be normal. Biopsies were done, all specimens are retrieved and no bleeding is noted. The scope was retracted back into the stomach and biopsies were done to rule out H. pylori. There were no ulcers. The scope was retroflexed. The cardia and fundus were noted to be normal. There no a hiatal hernia noted. The scope was retracted back into the esophagus and biopsies were done of the GE junction to rule out Lazaro's. The Z line was regular. The GE junction was at 37 cm. The scope was removed and the patient was woken up and taken back to [facility] in stable condition.
--- NOTE | 2021-05-05 13:46 | W.PM.DSUDISC ---
Discharge Plan Disposition Patient Disposition: HOME Condition: Good Discharge Details Reason For Visit: stomach scope Attending Provider: Krystal Velasquez Primary Care Provider: Danyelle Hernandez Home Meds and New Rx's Prescriptions: New pantoprazole [Protonix] 40 mg tablet,delayed release (DR/EC) 40 mg PO DAILY Qty: 30 RF: 12 Continued acetaminophen 500 mg tablet 500 mg PO Q6H PRN (Reason: pain) Qty: 60 RF: 0 calcium carbonate-vit D3-min 600 mg calcium- 400 unit tablet 1 tab PO DAILY RF: 0 sucralfate [Carafate] 1 gram tablet 1 gm PO QACHS Qty: 14 RF: 0 ondansetron 4 mg tablet,disintegrating 4 mg PO TID PRN (Reason: nausea and vomiting) Qty: 6 RF: 0 albuterol sulfate [ProAir HFA] 200 PUFF HFA aerosol inhaler 2 puff Inhalation PRN PRNRF: 0 cyclobenzaprine 10 mg tablet 10 mg PO TID PRN (Reason: muscle spasm) Qty: 10 RF: 0 Discontinued ibuprofen 600 mg tablet 600 mg PO TID PRN (Reason: pain) Qty: 60 RF: 0 famotidine [Pepcid] 20 mg tablet 20 mg PO DAILY Qty: 14 RF: 0 Discharge Instructions Additional Instructions: DSU EGD Post-Op Instructions Instructions for Everyone who is given Anesthesia: For your safety, please do the following for the next twenty-four (24) hours: *Do Not operate a motor vehicle (car, truck, motorcycle, etc.) *Do Not drink alcoholic beverages or use any recreational drugs for the first 24 hours or while taking pain medications. The medications in your body may have a reaction that can be dangerous. *Do Not make any important decisions or sign any important papers. Findings: mild reflux We did take biopsy's today. Follow up: My office will send a letter in 2 to 3 weeks with the results of the biopsies -Stop pepcid and start protonix Continue with lifestyle modifications: no alcohol, tobacco products, Aspirin or NSAID's (ibuprofen, Motrin, Naprosyn, aleve, etc), soda pop/any carbonated beverages, caffeine (including tea & chocolate)Try to avoid acidic foods: tomatoes, citrus, onions, peppermints. Do not lie down for 30 minutes after eating, and do not eat 2 hours prior to bedtime. Avoid wearing tight fitting clothing/ belts 1. No lifting over 20 pounds or strenuous activity for the first 24 hours after your procedure. After 24 hours there are no restrictions on your activity but you may feel fatigued for a few days. 2. After you arrive home you may have a light meal and return to your normal diet as you can tolerate it without feeling sick to your stomach. 3. You may have a sore throat will for the next 3 days. Gargle with salt water every 2-3 hrs as needed for sore throat. Call the office at [phone] (Office) or [phone] (Hospital) right away if you notice any of the following: a.Vomiting of blood or ?coffee ground stools?. b.Rectal bleeding 1Tbsp, blood clots or continuous bleeding. c.Severe belly (abdominal) pain. d.A hard distended belly (abdomen) and an inability to pass gas. 5. If there are questions regarding the findings of your procedure, please contact your doctor 6. If you are unable to contact your doctor with a problem, contact the hospital at [phone]. 7. Continue all your regular medications unless directed otherwise. I understand the above instructions and have no questions. Signature of Patient or Adult Escort Name of Responsible Adult Escort Signature of Nurse Date/Time Discharge Orders Discharge Orders: Discharge Order (Routine); Ordered 05/04/21 Ordered By: Krystal Velasquez DS: Diagnosis Discharge Diagnosis (1) Bipolar 1 disorder: Status: Acute (2) Epigastric abdominal pain: Status: Acute (3) GERD (gastroesophageal reflux disease): Status: Chronic
--- NOTE | 2021-05-05 13:50 | W.ANESPOSTOP ---
Postoperative Evaluation Date, Time and Location Date Performed: 05/05/21 Time Performed: 13:50 Patient Location: Day Surgery Unit Vital Signs Most Recent Imported Vital Signs: Most Recent Vital Signs Temp Pulse Resp BP Pulse Ox 36.6 C 100 H 18 123/81 100 05/05/21 12:01 05/05/21 12:01 05/05/21 12:01 05/05/21 12:01 05/05/21 12:01 Most Recent Manually Entered Vital Signs: Adult Blood Pressure: 108/74 Heart Rate: 95 Respirations: 12 Oxygen Saturation (%): 100 Temperature (C): 36.4 C Pain Score (0-10 Scale): 0 Pain Score Most Recent Pain Score: Most Recent Pain Score Pain Level 0 05/05/21 12:01 Assessment Mental Status: Awake (Alert & Oriented to Patient Baseline) Airway and Respiratory Function: Patent airway with normal (patient baseline) respiratory exam Cardiovascular Function: Hemodynamically Stable Hydration Status: Adequately Hydrated Nausea & Vomiting: No Nausea or Vomiting Pain: Pt. Denies Any Pain Peripheral Nerve Block: Patient did not receive a nerve block
[2021-05-05 13:51] VITALS: BP 108/74; PULSE 95; RESP 12; TEMPC 36.4; O2SAT 100
[2021-05-05 13:55] VITALS: BP 108/74; PULSE 96; RESP 18; TEMP 36.5; O2SAT 98
--- NOTE | 2021-05-05 13:56 | W.PM.DSUDISC ---
Discharge Plan Disposition Patient Disposition: HOME Condition: Good Discharge Details Reason For Visit: stomach scope Attending Provider: Krystal Velasquez Primary Care Provider: Danyelle Hernandez Home Meds and New Rx's Prescriptions: New pantoprazole [Protonix] 40 mg tablet,delayed release (DR/EC) 40 mg PO DAILY Qty: 30 RF: 12 Continued acetaminophen 500 mg tablet 500 mg PO Q6H PRN (Reason: pain) Qty: 60 RF: 0 calcium carbonate-vit D3-min 600 mg calcium- 400 unit tablet 1 tab PO DAILY RF: 0 sucralfate [Carafate] 1 gram tablet 1 gm PO QACHS Qty: 14 RF: 0 ondansetron 4 mg tablet,disintegrating 4 mg PO TID PRN (Reason: nausea and vomiting) Qty: 6 RF: 0 albuterol sulfate [ProAir HFA] 200 PUFF HFA aerosol inhaler 2 puff Inhalation PRN PRNRF: 0 cyclobenzaprine 10 mg tablet 10 mg PO TID PRN (Reason: muscle spasm) Qty: 10 RF: 0 Discontinued ibuprofen 600 mg tablet 600 mg PO TID PRN (Reason: pain) Qty: 60 RF: 0 famotidine [Pepcid] 20 mg tablet 20 mg PO DAILY Qty: 14 RF: 0 Discharge Instructions Additional Instructions: DSU EGD Post-Op Instructions Instructions for Everyone who is given Anesthesia: For your safety, please do the following for the next twenty-four (24) hours: *Do Not operate a motor vehicle (car, truck, motorcycle, etc.) *Do Not drink alcoholic beverages or use any recreational drugs for the first 24 hours or while taking pain medications. The medications in your body may have a reaction that can be dangerous. *Do Not make any important decisions or sign any important papers. Findings: mild reflux We did take biopsy's today. Follow up: My office will send a letter in 2 to 3 weeks with the results of the biopsies -Stop pepcid and start protonix -stop taking ibuprofen. tylenol is OK. If you are still having knee pain, talk to your PCP about celebrex. -Continue with lifestyle modifications: no alcohol, tobacco products, Aspirin or NSAID's (ibuprofen, Motrin, Naprosyn, aleve, etc), soda pop/any carbonated beverages, caffeine (including tea & chocolate)Try to avoid acidic foods: tomatoes, citrus, onions, peppermints. Do not lie down for 30 minutes after eating, and do not eat 2 hours prior to bedtime. Avoid wearing tight fitting clothing/ belts. 1. No lifting over 20 pounds or strenuous activity for the first 24 hours after your procedure. After 24 hours there are no restrictions on your activity but you may feel fatigued for a few days. 2. After you arrive home you may have a light meal and return to your normal diet as you can tolerate it without feeling sick to your stomach. 3. You may have a sore throat will for the next 3 days. Gargle with salt water every 2-3 hrs as needed for sore throat. Call the office at [phone] (Office) or [phone] (Hospital) right away if you notice any of the following: a.Vomiting of blood or ?coffee ground stools?. b.Rectal bleeding 1Tbsp, blood clots or continuous bleeding. c.Severe belly (abdominal) pain. d.A hard distended belly (abdomen) and an inability to pass gas. 5. If there are questions regarding the findings of your procedure, please contact your doctor 6. If you are unable to contact your doctor with a problem, contact the hospital at [phone]. 7. Continue all your regular medications unless directed otherwise. I understand the above instructions and have no questions. Signature of Patient or Adult Escort Name of Responsible Adult Escort Signature of Nurse Date/Time Discharge Orders Discharge Orders: Discharge Order (Routine); Ordered 05/04/21 Ordered By: Krystal Velasquez DS: Diagnosis Discharge Diagnosis (1) Bipolar 1 disorder: Status: Acute (2) Epigastric abdominal pain: Status: Acute (3) GERD (gastroesophageal reflux disease): Status: Chronic
[2021-05-05 14:18] VITALS: BP 105/62; PULSE 95; RESP 16; TEMP 36.8; O2SAT 99
== END 2021-05-05 14:28 | disposition home or self-care (01) ==
PROVIDERS: PCP Nurse Practitioner Family; Visit Provider Surgery
PROC: 0DJ68ZZ Inspection of Stomach, Via Natural or Artificial Opening Endoscopic (ICD-10-PCS; CPT 43235; principal; 2021-05-05 10:45)
DX: R10.13 Epigastric pain (principal); K21.00 Gastro-esophageal reflux disease with esophagitis, without bleeding; K31.89 Other diseases of stomach and duodenum; J45.909 Unspecified asthma, uncomplicated; F41.9 Anxiety disorder, unspecified; F31.9 Bipolar disorder, unspecified; Z79.899 Other long term (current) drug therapy
CPT/HCPCS: 43239; 80053; 81025; 88305; 83735; 84443; 85610; 86140; J2001

== ENCOUNTER 2021-05-16 02:15 | Outpatient (CLI) | payer MEDICAID, SELFPAY ==
--- NOTE | 2021-05-16 13:00 | NS.NUTBLAN_ITS ---
Reyna returns for Medical Nutrition Therapy for anorexia with bingeing and purging. Most recent weight 88.4 lbs BMI 16. Typically not weighed as very triggering for her. Reyna reports now taking protonix for GERD. GERD severe in morning, unable to tolerate breakfast without severe nausea. 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 In last 2 weeks able to consume about 1000 kcal, 30 g protein, mostly as smoothies consisting of berries, whole milk and whey protein. Reports episode of bingeing (24 jump shrimp in one sitting) and purging. Reports regular BM, no bloating. Reyna reports many intrusive thoughts daily about not gaining weight, seeing psychiatrist this week for medication recommendation for reducing obsessive thoughts. Has tried depakote/lithium in past with poor results. Reports lowest weight of 72 lbs in 2019 after being at [facility] for 3 weeks- lost 15 lbs during admission. Reports difficulty with boy friend who recently cheated on her. They have lived together for > 1 year. Reyna notices that eating disorder behaviors increase when has emotionally difficult experiences and able to validate that she uses her eating disorder to gain control over things she cannot control. Current intake will maintain current weight and not sustain weight gain. Goal for next two weeks is for Reyna to log her meals into car[employer]ann called [employer] and meet 1200 kcal, 60 g protein daily. Once able to tolerate calorie increase, will increase by 200 kcal per week until able to consume adequate caloric intake needed for weight regain. Recommend dual diagnosis facility such as [facility] in [place] if needs inpatient services in future. Follow up meeting scheduled for 05/30/21 at 1 pm.
--- NOTE | 2021-05-30 13:53 | TELEFU_ITS ---
Date of service: 05/30/21 Time of Service: 13:53 Nutritional Follow up NOTE: Reyna returns for medical nutrition therapy for anorexia with purging. She reports restricting but no binging or purging in last 2 weeks. She has been logging her meals on a phone carolann and that she is averaging 900-1000 kcal, 40-50 g protein per day. She reports frequent nausea that is relieved by THC. Recently at Psychiatrist and is prescribed lamotrigine, ariprazole, buspirone and ativan. Reyna is worried about getting addicted as addition runs in her family. Session today focused on how to incorporate more calories per day. Caloric need for weight regain is 5431-7999 kcal. Goal for next 2 weeks is to meet > 1000 kcal per day and logging meals daily. 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 Encouraged Reyna to journal and other self soothing acitivities. Time Spent in Nutritional Counseling and Treatment: 30 min
== END 2021-05-16 02:16 | disposition home or self-care (01) ==
LOC: DS 02:17
PROVIDERS: PCP Nurse Practitioner Family; Visit Provider Dietitian, Registered
DX: F50.02 Anorexia nervosa, binge eating/purging type (principal); K21.9 Gastro-esophageal reflux disease without esophagitis; Z68.1 Body mass index [BMI] 19.9 or less, adult; Z71.3 Dietary counseling and surveillance
CPT/HCPCS: 97803

== ENCOUNTER 2021-06-13 01:49 | Outpatient (CLI) | payer MEDICAID, SELFPAY ==
--- NOTE | 2021-06-13 14:00 | NS.NUTBLAN_ITS ---
Reyna returns for Medical Nutrition Therapy for anorexia. She wants to get weighed now. Weight: 88 lbs. Goal weight 95 lbs. Food diary indicates average caloric intake 800-1000 kcal. Reviewed ways to increase caloric intake to help with weight gain. Encouraged Reyna to continue to food log and aim for 8841-3936 kcal going forward. Reviewed cost/benefit analysis for recovery. Reyna reports she feels better physically and has more energy, however, mentally she has more negative body image and self critic. Her goal is to gain weight so she can have a family one day and start my life. Overall, Reyna is doing well. Continues to see counselor and psychiatrist and feels well supported. Follow up: 06/28/21 at 1 pm
== END 2021-06-13 01:50 | disposition home or self-care (01) ==
LOC: DS 01:49
PROVIDERS: PCP Nurse Practitioner Family; Visit Provider Dietitian, Registered
DX: Z71.3 Dietary counseling and surveillance; R63.0 Anorexia
CPT/HCPCS: 97803

== ENCOUNTER 2021-06-28 05:26 | Outpatient (CLI) | payer MEDICAID, SELFPAY ==
--- NOTE | 2021-06-27 13:00 | NS.NUTBLAN_ITS ---
Reyna returns for Medical Nutrition Therapy for anorexia with binge/purge. She reports no binging or purging in last 4 weeks. She has been writing down her meals and maintaining a calorie count. Her average intake averages 1500 kcal, 50 g protein. Wt: 90 lbs, up 2 lbs in last month. Goal wt: 95 lbs. Overall, Reyna is doing well with following her meal plan despite urges to restrict. Her weight gain has been triggering as she no longer can fit into her skinny clothes. We reviewed the pros/cons of keeping smaller sizes at her home. She has decided to donate these clothes as she does not want to lose weight gain. Reyna is focused on getting to 95 lbs and then starting a family. Follow up meeting scheduled for 07/25/21 at 1 pm.
== END 2021-06-28 05:27 | disposition home or self-care (01) ==
PROVIDERS: PCP Nurse Practitioner Family; Visit Provider Dietitian, Registered
DX: F50.02 Anorexia nervosa, binge eating/purging type (principal); Z71.3 Dietary counseling and surveillance
CPT/HCPCS: 97803

== ENCOUNTER 2021-07-11 11:59 | Emergency (ER) | payer MEDICAID, SELFPAY ==
--- NOTE | 2021-07-11 12:00 | DI.RAD_ITS ---
Exam(s) XR WRIST LT COMPLETE EXAM: XR WRIST LT COMPLETE CLINICAL HISTORY: pain s/p trauma last night. TECHNIQUE: 2D digital imaging was performed of the left wrist. Three images were obtained. PA, obl ique and lateral views were obtained. COMPARISON: No exams were available for comparison FINDINGS: BONES: No acute fracture is present. No bony destructive lesion is seen. JOINTS: The carpal bones are normally aligned. SOFT TISSUE: Normal. IMPRESSION: Unremarkable radiographs of the left wrist. DATA REPOSITORY: RADIATION DOSE DELIVERED:
[2021-07-11 12:02] VITALS: BP 121/75; PULSE 95; RESP 16; TEMP 36.4; O2SAT 99
--- NOTE | 2021-07-11 12:11 | ED.GENADUL_ITS ---
Discharge Plan Disposition Patient Disposition: HOME Condition: Stable Discharge Details Clinical Impression: Contusion of left wrist Primary Care Provider: Danyelle Hernandez ED Provider: John Alcantara Home Meds and New Rx's Prescriptions: Continued lorazepam 0.5 mg tablet 0.5 mg PO DAILY PRNRF: 0 buspirone 5 mg tablet 5 mg PO DAILY RF: 0 Xulane 150-35 mcg/24 hr patch weekly 1 patch transdermal Q7D Qty: 9 RF: 4 pantoprazole 40 mg tablet,delayed release (DR/EC) 40 mg PO DAILY RF: 0 acetaminophen 500 mg tablet 500 mg PO Q6H PRN (Reason: pain) Qty: 60 RF: 0 calcium carbonate-vit D3-min 600 mg calcium- 400 unit tablet 1 tab PO DAILY RF: 0 albuterol sulfate [ProAir HFA] 200 PUFF HFA aerosol inhaler 2 puff Inhalation PRN PRNRF: 0 cyclobenzaprine 10 mg tablet 10 mg PO TID PRN (Reason: muscle spasm) Qty: 10 RF: 0 lamotrigine 100 mg tablet 100 mg PO DAILY RF: 0 Discharge Instructions Instructions: Contusion in Adults (ED) Additional Instructions: your xray did not show any broken bones you likely have a bone bruise if pain continues in a week follow up with your primary care provider if you have severe worsening of pain, or new pain such as headache or chest pain return to the emergency department Medical Decision Making 21 yo female comes in with left wrist pain. She states she was play wrestling with her significant other last night and her left wrist hit a table. No loc or other injuries, did not fall or hit her head. She has pain in the left wrist. She has no pain in the hand and has no tenderness in the fingers or palm and full range of motion of the fingers. Normal pulses and sensation. No swelling of the wrist or other deformity, has pain over both the radial and ulna side of the wrist. No forearm, elbow, humerus or shoulder tenderness. Suspect contusion but will xray the wrist to evaluate for fracture xray negative on my read, if radiology agrees will likely discharge in splint and advised if pain continues in a week to see primary care provider, and return precautions given Differential Diagnosis Differential Diagnosis: contusion, fracture, sprain Imaging Data Radiologic Study: Attestation: I personally reviewed and interpreted this imaging study as follows: Imaging: X-Ray My impression: no acute findings HPI General Mode of arrival: ambulatory . Date/Time Provider Initiated Documentation: 07/11/21 11:59 . Limitations to Documentation: no limitations . Information obtained by: patient . History of Present Illness 21 year old F presents to the emergency department with the chief complaint of left wrist pain, described as moderate, Quality is described as aching, and is localized to the left and upper extremity. Patient reports no radiation. Patient started experiencing this day(s) (1) and it has been constant. Rest improves symptom(s), Movement worsens symptoms . Patient notes no other symptoms.. Patient did receive the following treatments prior to arrival, none Related Data Home Medications Medication Instructions Recorded Confirmed albuterol sulfate [ProAir HFA] 2 puff INHALATION PRN PRN 05/19/17 07/11/21 acetaminophen 500 mg PO Q6H PRN #60 tab 03/03/19 07/11/21 cyclobenzaprine 10 mg PO TID PRN #10 tab 03/06/21 07/11/21 calcium carbonate-vit D3-min 1 tab PO DAILY 04/19/21 07/11/21 buspirone 5 mg tablet 5 mg PO DAILY tab 05/23/21 07/11/21 lorazepam 0.5 mg tablet 0.5 mg PO DAILY PRN 05/23/21 07/11/21 norelgestromin 150 mcg-e.estradiol 1 patch TRANSDERMAL Q7D #9 ea 05/23/21 07/11/21 35 mcg/24 hr weekly transderm patch pantoprazole 40 mg tablet,delayed 40 mg PO DAILY 07/05/21 07/11/21 release lamotrigine 100 mg PO DAILY 07/11/21 07/11/21 Previous Rx's Medication Instructions Recorded acetaminophen 500 mg PO Q6H PRN #60 tab 03/03/19 cyclobenzaprine 10 mg PO TID PRN #10 tab 03/06/21 norelgestromin 150 mcg-e.estradiol 1 patch TRANSDERMAL Q7D #9 ea 05/23/21 35 mcg/24 hr weekly transderm patch Allergies Allergy/AdvReac Type Severity Reaction Status Date / Time amoxicillin AdvReac Intermediate vomiting Unverified 07/11/21 12:06 doxycycline AdvReac Intermediate vomiting Verified 07/11/21 12:06 General Stated Complaint: Orthopedic SIS: 4 Review of Systems All systems reviewed & are unremarkable except as noted in HPI and below Constitutional Constitutional: Denies chills, Denies fever(s) and Denies weakness Cardiovascular Cardiovascular: Denies chest pain and Denies dyspnea Respiratory Respiratory: Denies cough and Denies dyspnea Gastrointestinal Gastrointestinal: Denies abdominal pain, Denies nausea and Denies vomiting Musculoskeletal Musculoskeletal: Denies joint swelling Neurologic Neurologic: Denies weakness PFSH Medical History Anxiety Asthma Depression Surgical History Hx of arthroscopic knee surgery Tonsillectomy and adenoidectomy age 10 Family History Mother No problems noted. Father No problems noted. Other Cancer Diabetes Social History (Updated 04/09/21 @ 21:44 by Stephanie Wheeler MD) Smoking/Tobacco Use Status: Current every day Tobacco Type: e-cigarettes Smoking risk assessment performed?: Yes Alcohol Intake: former Drug use: Occasionally Substance use type: marijuana Details: e cigarette pt. 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 Do you feel safe at home: Yes Do you feel safe in your relationship?: Yes Female Reproductive History Menstrual control method: none and progesterone injection Exam Const General: no acute distress Orientation: alert HENMT Head: normal to inspection Ears: external ears normal General nose exam: external nose normal Mouth: moist mucous membranes Eyes General: appearance normal, both eyes and all related structures Neck Neck: normal visual inspection Resp Effort & Inspection: normal respiratory effort and able to speak in complete sentences Cardio Rate: regular rate Skin General skin exam: no rashes or lesions noted Neuro General: patient alert and patient oriented x3 Extrem General: normal to inspection Psych Mental Status: mental status grossly normal Course Vital Signs Vital signs: Vital Signs Temperature 36.4 C L 07/11/21 12:02 Pulse 95 H 07/11/21 12:02 Respiratory Rate 16 07/11/21 12:02 Blood Pressure 121/75 07/11/21 12:02 Pulse Oximetry 99 07/11/21 12:02 Temperature 36.4 C L 07/11/21 12:02 Temperature Source Skin 07/11/21 12:02 Pulse 95 H 07/11/21 12:02 Respiratory Rate 16 07/11/21 12:02 Respiratory Effort Non-Labored 07/11/21 12:02 Blood Pressure 121/75 07/11/21 12:02 Blood Pressure Position Sitting 07/11/21 12:02 Pulse Oximetry 99 07/11/21 12:02 Oxygen Delivery Method Room Air 07/11/21 12:02 Oxygen Flow Rate 0 07/11/21 12:02 Pain Level 7 07/11/21 12:02
[2021-07-11] MEDS: Acetaminophen 500 MG TAB 1000 MG PO (12:14)
--- NOTE | 2021-07-11 12:21 | NUR.NOTE ---
Nursing Note: Abisai from called asking about doing a POC test, pt stated she did not know if she was . Dr. Alcantara stated it would be alright to shield the patient for the exam, and Abisai was informed. Christine Gupta
== END 2021-07-11 13:17 | disposition home or self-care (01) ==
PROVIDERS: Emergency Provider Emergency Medicine; PCP Nurse Practitioner Family
DX: S60.212A Contusion of left wrist, initial encounter (principal); W22.8XXA Striking against or struck by other objects, initial encounter
CPT/HCPCS: 29125; 99283; 73110; 99282

== ENCOUNTER 2021-07-25 01:41 | Outpatient (CLI) | payer MEDICAID, SELFPAY ==
--- NOTE | 2021-07-25 13:00 | NS.NUTBLAN_ITS ---
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 Wt: 90 lbs, has maintained her weight x 30 days. Up 2 lbs in last 8 weeks. Goal Wt: 95 lbs. Has psychiatrist/counselor, feels good on current med regime. Food Journal: meeting 1500 kcal, 60 g protein most days. Food/Mood: has binged and restricted multiple times due to triggers, however, at end of day, able to meet 1500 kcal most days. Able to overcome urges and follow plan. Very focused on future and wanting to start a family. Session today focused on strategies for holiday triggers including skinny shaming by family, urges to binge and restrict. Made food plan for holidays that includes her safe foods. Encouraged Reyna to attend holidays but not put pressure on herself to eat meals with others. Reviewed feelings about eating with others and recognized difficulty. At this level of recovery, recommend eating only with those she feels safe (mother, boyfriend) and follow meal plan with safe foods. Session today included caloric increase needed to gain weight. Reyna to start meeting 1800 calories daily. Reviewed how during refeeding, the body often goes into hypermetabolism. May require > 2000 kcal per day to meet weight goal. Reyna has stopped using control as wants a family. Encouraged her to have appt wt [facility] and to continue to take MVI daily, avoid alcohol, drugs, nicotine. Follow up 08/29/21 at 1 pm
== END 2021-07-25 01:42 | disposition home or self-care (01) ==
PROVIDERS: PCP Nurse Practitioner Family; Visit Provider Dietitian, Registered
DX: Z71.3 Dietary counseling and surveillance (principal); F50.02 Anorexia nervosa, binge eating/purging type
CPT/HCPCS: 97803

== ENCOUNTER 2021-08-09 13:34 | Emergency (ER) | payer MEDICAID, SELFPAY ==
[2021-08-09 13:36] VITALS: BP 105/72; PULSE 85; RESP 18; TEMP 37.3; O2SAT 100
--- NOTE | 2021-08-09 13:48 | W.ED.GENAD ---
Discharge Plan Disposition Patient Disposition: HOME Condition: Stable Discharge Details Clinical Impression: Migraine Primary Care Provider: Danyelle Hernandez ED Provider: John Alcantara Home Meds and New Rx's Prescriptions: Continued lorazepam 0.5 mg tablet 0.5 mg PO DAILY PRNRF: 0 buspirone 5 mg tablet 5 mg PO DAILY RF: 0 Xulane 150-35 mcg/24 hr patch weekly 1 patch transdermal Q7D Qty: 9 RF: 4 pantoprazole 40 mg tablet,delayed release (DR/EC) 40 mg PO DAILY RF: 0 acetaminophen 500 mg tablet 500 mg PO Q6H PRN (Reason: pain) Qty: 60 RF: 0 calcium carbonate-vit D3-min 600 mg calcium- 400 unit tablet 1 tab PO DAILY RF: 0 albuterol sulfate [ProAir HFA] 200 PUFF HFA aerosol inhaler 2 puff Inhalation PRN PRNRF: 0 cyclobenzaprine 10 mg tablet 10 mg PO TID PRN (Reason: muscle spasm) Qty: 10 RF: 0 lamotrigine 100 mg tablet 100 mg PO DAILY RF: 0 Discharge Instructions Instructions: Migraine Headache (ED) Additional Instructions: Follow up with your primary care provider within 1 week if you feel more ill, have fevers or persistent vomit return to the emergency department Medical Decision Making 21 yo female with hx of miraines comes in with head pain for 5 days similar to prior migraines. She has not had any meds today but states nsaids at home the past few days haven't helped. She denies fall, fevers, vomit. She is having nausea and is light sensitive. She is caox4, clear speech, Perrl, eomi, no focal motor or sensation deficits and normal gait. No meningismus on exam. Her symptoms seem most consistent with migraine vs tension headache, unlikely hemorrhage given pain has slowly worsened and wasn't thunderclap in etiology. No infectious symptoms, doubt city driver infection at this time. Will treat with toradol, compazine and dexamethasone and reassess. pt now sitting up watching a show on her phone and states she feels significantly better requesting d/c. Advised to f/u with pcp and return precautions given Differential Diagnosis Differential Diagnosis: migraine, tension headache, cluster headache Medical Records Medical records reviewed: Yes I reviewed the patient's medical records. HPI General Mode of arrival: ambulatory. Date/Time Provider Initiated Documentation: 08/09/21 13:34. Limitations to Documentation: no limitations. Information obtained by: patient. History of Present Illness 21 year old F presents to the emergency department with the chief complaint of migraine, described as moderate, with intensity rated at 6. Quality is described as aching, and is localized to the head. Patient reports no radiation. Patient started experiencing this day(s) (5) and it has been constant. No relieving factors improve symptom(s), No exacerbating factors reported . Patient notes no other symptoms.; denies chest pain and fever/chills. Patient did receive the following treatments prior to arrival, none (none today) Related Data Home Medications Medication Instructions Recorded Confirmed albuterol sulfate [ProAir HFA] 2 puff INHALATION PRN PRN 05/19/17 08/09/21 acetaminophen 500 mg PO Q6H PRN #60 tab 03/03/19 08/09/21 cyclobenzaprine 10 mg PO TID PRN #10 tab 03/06/21 08/09/21 calcium carbonate-vit D3-min 1 tab PO DAILY 04/19/21 08/09/21 buspirone 5 mg tablet 5 mg PO DAILY tab 05/23/21 08/09/21 lorazepam 0.5 mg tablet 0.5 mg PO DAILY PRN 05/23/21 08/09/21 norelgestromin 150 mcg-e.estradiol 1 patch TRANSDERMAL Q7D #9 ea 05/23/21 08/09/21 35 mcg/24 hr weekly transderm patch pantoprazole 40 mg tablet,delayed 40 mg PO DAILY 07/05/21 08/09/21 release lamotrigine 100 mg PO DAILY 07/11/21 08/09/21 Previous Rx's Medication Instructions Recorded acetaminophen 500 mg PO Q6H PRN #60 tab 03/03/19 cyclobenzaprine 10 mg PO TID PRN #10 tab 03/06/21 norelgestromin 150 mcg-e.estradiol 1 patch TRANSDERMAL Q7D #9 ea 05/23/21 35 mcg/24 hr weekly transderm patch Allergies Allergy/AdvReac Type Severity Reaction Status Date / Time amoxicillin AdvReac Intermediate vomiting Unverified 08/09/21 13:38 doxycycline AdvReac Intermediate vomiting Verified 08/09/21 13:38 General Stated Complaint: Headache SIS: 3 Review of Systems All systems reviewed & are unremarkable except as noted in HPI and below Constitutional Constitutional: Denies chills, Denies fever(s) and Denies weakness Cardiovascular Cardiovascular: Denies chest pain and Denies dyspnea Respiratory Respiratory: Denies cough and Denies dyspnea Gastrointestinal Gastrointestinal: Denies abdominal pain and Denies vomiting Musculoskeletal Musculoskeletal: Denies joint swelling Neurologic Neurologic: Denies weakness [facility] Active Problem List (Updated 08/09/21 @ 14:05 by John Alcantara MD) Migraine (Chronic) Esophagitis (Acute) Contusion of left wrist (Acute) Anorexia nervosa, binge-eating purging type, extreme (Acute) GERD (gastroesophageal reflux disease) (Chronic) Bipolar 1 disorder (Acute) Vomiting (Acute) Nausea and vomiting (Acute) Epigastric abdominal pain (Acute) Chronic nausea (Acute) Chronic abdominal pain (Acute) Left knee pain (Acute) Encounter for Nexplanon removal (Acute) Contraception (Acute) Nausea & vomiting (Acute) Depression (Chronic) Eating disorder (Acute) Lumbago of lumbar region with sciatica (Acute) Patellofemoral disorders, left knee (Acute) Asthma (Chronic) Depression (Chronic) Anxiety (Chronic) Contraception (Acute 04/15/17) Surgical History (Updated 07/17/21 @ 15:59 by Karlee Bergman) History of esophagogastroduodenoscopy (EGD) (~05/2021) Hx of arthroscopic knee surgery Tonsillectomy and adenoidectomy age 10 Family History Mother No problems noted. Father No problems noted. Other Cancer Diabetes Social History (Updated 04/09/21 @ 21:44 by Stephanie Wheeler MD) Smoking/Tobacco Use Status: Current every day Tobacco Type: e-cigarettes Smoking risk assessment performed?: Yes Alcohol Intake: former Drug use: Occasionally Substance use type: marijuana Details: e cigarette pt. 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 Do you feel safe at home: Yes Do you feel safe in your relationship?: Yes Female Reproductive History Menstrual control method: none and progesterone injection Exam Const General: no acute distress Orientation: alert HENMT Head: normal to inspection Ears: external ears normal General nose exam: external nose normal Mouth: moist mucous membranes Eyes General: appearance normal, both eyes and all related structures Neck Neck: normal visual inspection Resp Effort & Inspection: normal respiratory effort and able to speak in complete sentences Cardio Rate: regular rate Skin General skin exam: no rashes or lesions noted Neuro General: patient alert and patient oriented x3 Extrem General: normal to inspection Psych Mental Status: mental status grossly normal Course Vital Signs Vital signs: Vital Signs Temperature 37.3 C 08/09/21 13:36 Pulse 85 08/09/21 13:36 Respiratory Rate 18 08/09/21 13:36 Blood Pressure 105/72 08/09/21 13:36 Pulse Oximetry 100 08/09/21 13:36 Temperature 37.3 C 08/09/21 13:36 Temperature Source Temporal Artery Scan 08/09/21 13:36 Pulse 85 08/09/21 13:36 Respiratory Rate 18 08/09/21 13:36 Respiratory Effort Non-Labored 08/09/21 13:40 Blood Pressure 105/72 08/09/21 13:36 Pulse Oximetry 100 08/09/21 13:36 Pain Level 8 08/09/21 13:40
[2021-08-09] MEDS: Ketorolac 15 MG/ML VIAL IVP (14:25)
[2021-08-09] MEDS: Dexamethasone 10 MG/ML VIAL IVP (14:25)
[2021-08-09] MEDS: Prochlorperazine 10 MG/2 ML VIAL IVP (14:25)
[2021-08-09] MEDS: Normal Saline 1,000 ML 1000 ML IV (14:25)
[2021-08-09 17:51] VITALS: BP 105/72; PULSE 85; RESP 18; TEMP 37.3; O2SAT 100
== END 2021-08-09 15:29 | disposition home or self-care (01) ==
PROVIDERS: Emergency Provider Emergency Medicine; PCP Nurse Practitioner Family
DX: G43.909 Migraine, unspecified, not intractable, without status migrainosus (principal)
CPT/HCPCS: 81025; 96361; 96374; 96375; 99284; 99283; J0780; J1100; J1885

== ENCOUNTER 2021-08-16 00:50 | Outpatient (CLI) | payer MEDICAID, SELFPAY ==
--- NOTE | 2021-08-16 09:00 | NS.NUTBLAN_ITS ---
Reyna returns for Medical Nutrition Therapy for nutritional counseling for anorexia with purging and binging. Wt: 90 lbs. No change in weight since last visit. Reyna reports increased urges to restrict/binge and purge with holidays. She reports that she is able to resist urges but continues to have binges followed by restriction. Typically, this occurs once a week. Reyna is also concerned that she may be gluten intolerant and wanted to know if she should avoid all gluten. We discussed how eating disorders tend to gravitate toward food allergies. Encouraged Reyna to continue to eat wheat products and if she desires could ask her PCP for a Celiac work up. It is unlikely that she has gluten intolerance. Session today focused on providing on going support for eating disorder during holiday months, reviewed triggers and strategies to stay on track. Encouraged Reyna to follow meal plan and to eat her safe foods before holiday parties. Goal during holidays is not to lose weight. Follow up scheduled for 08/29/21 at 1 pm.
== END 2021-08-16 00:51 | disposition home or self-care (01) ==
LOC: DS 00:50
PROVIDERS: PCP Nurse Practitioner Family; Visit Provider Dietitian, Registered
DX: F50.02 Anorexia nervosa, binge eating/purging type (principal); Z71.3 Dietary counseling and surveillance
CPT/HCPCS: 97803

== ENCOUNTER 2021-09-13 15:23 | Outpatient (REF) | payer MEDICAID, SELFPAY ==
[2021-09-15 20:57] LABS: COVID-19 RT-PCR UVMMC Result Positive (Negative)
== END 2021-09-13 15:24 | disposition home or self-care (01) ==
LOC: NCHCN 15:23
PROVIDERS: PCP Nurse Practitioner Family; Visit Provider Nurse Practitioner Family
DX: Z20.822 Contact with and (suspected) exposure to COVID-19 (principal)
CPT/HCPCS: U0003

== ENCOUNTER 2021-09-26 04:58 | Outpatient (CLI) | payer MEDICAID, SELFPAY ==
--- NOTE | 2021-09-26 13:00 | NS.NUTBLAN_ITS ---
Reyna returns for nutritional counseling for anorexia with restricting and purging. She reports no purging or restricting in recent months. 5'2 92.5 BMI 16.5. Up 2.5 lbs since last visit (08/16/21) despite coming down with covid 19 x 10 days and having difficulty eating due to sore throat. Diet Recall: special K, granola bar, Smoothie, wenceslao's dinner. Reyna notes that she has had less intrusive thoughts about restricting since her psych meds were adjusted about 2 months ago. She reports wanting to gain weight-but has been unable to reach 95 lbs despite eating more these last 2 weeks. She recalls being self conscience since age 14 about her weight and nutrition despite never being heavy. Her highest weight was 101 lbs. She now reports focusing on wanting to be heavier and not feeling beautiful at her current weight. We discussed how weight is a measurable number and its easy to get fixated on it. I encouraged her to focus on meeting her nutritional needs and self care. With time, I expect her weight to go up but it may take time. A weight of 103 lbs puts her BMI in healthy range. Follow up at this time is in 90 days or prn. Scheduled for 12/26/21 at 1 pm.
== END 2021-09-26 04:59 | disposition home or self-care (01) ==
PROVIDERS: PCP Nurse Practitioner Family; Visit Provider Dietitian, Registered
DX: R63.0 Anorexia (principal); Z71.3 Dietary counseling and surveillance
CPT/HCPCS: 97803

== ENCOUNTER 2021-10-19 18:29 | Outpatient (REF) | payer MEDICAID, SELFPAY ==
[2021-10-19 21:11] LABS: HCG Qual (Serum) Negative
== END 2021-10-19 18:30 | disposition home or self-care (01) ==
LOC: NCHCN 18:29
PROVIDERS: PCP Nurse Practitioner Family; Visit Provider Nurse Practitioner Family
DX: N91.2 Amenorrhea, unspecified (principal)
CPT/HCPCS: 84703

== ENCOUNTER 2021-12-26 06:23 | Outpatient (CLI) | payer MEDICAID, SELFPAY | END 2021-12-26 06:24 | disposition home or self-care (01) | LOC: DS 06:23 | PROVIDERS: PCP Nurse Practitioner Family; Visit Provider Dietitian, Registered ==

== ENCOUNTER 2022-01-19 19:43 | Emergency (ER) | payer MEDICAID, SELFPAY ==
--- NOTE | 2022-01-19 20:15 | DI.RAD_ITS ---
Exam(s) XR HAND RT COMPLETE EXAM: XR HAND RT COMPLETE CLINICAL HISTORY: boxer injury. TECHNIQUE: 2D digital imaging was performed of the right hand. Three images were obtained. AP, late ral and oblique views were obtained. COMPARISON: CR RIGHT HAND COMPLETE from 09/11/2017 FINDINGS: BONES: No acute fracture is present. No bony destructive lesion is seen. JOINTS: No dislocation present. SOFT TISSUE: Normal. IMPRESSION: Unremarkable radiographs of the right hand. DATA REPOSITORY: RADIATION DOSE DELIVERED:
[2022-01-19 20:18] VITALS: BP 108/70; PULSE 98; RESP 16; TEMP 36.4; O2SAT 100
--- NOTE | 2022-01-19 20:25 | W.ED.GENAD ---
Discharge Plan Disposition Patient Disposition: HOME Condition: Good Discharge Details Clinical Impression: Contusion of hand Primary Care Provider: Danyelle Hernandez ED Provider: Gisell Peterson Home Meds and New Rx's Prescriptions: Continued lorazepam 0.5 mg tablet 0.5 mg PO DAILY PRN buspirone 5 mg tablet 5 mg PO DAILY pantoprazole 40 mg tablet,delayed release (DR/EC) 40 mg PO DAILY Label Comments: phoned into Pharmacy 07/05/21 as original script was D/Lucian by [facility]. 10 refills acetaminophen 500 mg tablet 500 mg PO Q6H PRN (Reason: pain) Qty: 60 0RF albuterol sulfate [ProAir HFA] 200 PUFF HFA aerosol inhaler 2 puff Inhalation PRN PRN cyclobenzaprine 10 mg tablet 10 mg PO TID PRN (Reason: muscle spasm) Qty: 10 0RF lamotrigine 100 mg tablet 100 mg PO DAILY Label Comments: TAKE ONE TABLET BY MOUTH EVERY DAY Discharge Instructions Instructions: Contusion in Adults (ED) Additional Instructions: Your x-ray and exam are reassuring here today. No evidence of dislocation, fracture or ligament injury. Likely contusion. Please encourage rest, ice, elevation. Tylenol and/or ibuprofen as needed for discomfort. Please continue with lizbeth taping while pain persist. Please follow-up with primary care for reevaluation in 2 weeks. If develop any new or worsening symptoms please seek care urgently once again. Referrals: Danyelle Hernandez, [employer] MANAGER [employer]SULTANT [Primary Care Provider] - Discharge Data Discharge Date/Time-TO BE ENTERED AT DEPARTURE: 01/19/22 21:43 Medical Decision Making Patient is a pleasant [id number] 21-year-old female presenting today with chief complaint of right hand pain. She reports that yesterday, while drinking her friends libertarian, she punched a wall. Since then she has been having pain along the ulnar side of the right hand, particular with extension of the pinky. She denies any other injuries from the incident. Denies any numbness or tingling. On exam, patient appears nontoxic. She does have ecchymosis over the fifth MCP joint of the right hand along the dorsal side extending midway down the proximal phalanx. Full range of motion of the wrist. 2+ distal pulses. No pain elsewhere about the hand. No palpable or visible deformity. Sensation is fast. She is able to flex and extend against resistance at all joints spaces. No pain over the anatomical snuffbox. FINDINGS: Bones/joints: Normal. Soft tissues: Normal. IMPRESSION: No acute findings. Discussed findings with the patient. Advised contusion. encouraged RICE. Will lizbeth tape. Return precautions discussed. Advised f/u with PCP in 2 weeks for reevaluation. All quesitons and concerns were addressed, she is in agreement with this plan. HPI General Date/Time Provider Initiated Documentation: 01/19/22 20:25. Limitations to Documentation: no limitations. Information obtained by: patient and RN notes reviewed. History of Present Illness 21 year old F presents to the emergency department with the chief complaint of right hand pain, described as severe, with intensity rated at 8. Quality is described as aching, and is localized to the right and upper extremity. Patient reports no radiation. Patient started experiencing this day(s) and it has been constant. Immobilization improves symptom(s), Movement worsens symptoms . Patient notes no other symptoms.. Patient did receive the following treatments prior to arrival, none Related Data Home Medications Medication Instructions Recorded Confirmed albuterol sulfate 90 mcg/actuation 2 puff inhalation PRN PRN 05/19/17 10/26/21 aerosol inhaler (ProAir HFA) acetaminophen 500 mg tablet 500 mg PO Q6H PRN pain #60 tabs 03/03/19 10/26/21 cyclobenzaprine 10 mg tablet 10 mg PO TID PRN muscle spasm #10 03/06/21 10/26/21 tabs buspirone 5 mg tablet 5 mg PO DAILY 05/23/21 10/26/21 lorazepam 0.5 mg tablet 0.5 mg PO DAILY PRN 05/23/21 10/26/21 pantoprazole 40 mg tablet,delayed 40 mg PO DAILY 07/05/21 10/26/21 release lamotrigine 100 mg tablet 100 mg PO DAILY 07/11/21 10/26/21 Previous Rx's Medication Instructions Recorded acetaminophen 500 mg tablet 500 mg PO Q6H PRN pain #60 tabs 03/03/19 cyclobenzaprine 10 mg tablet 10 mg PO TID PRN muscle spasm #10 03/06/21 tabs Allergies Allergy/AdvReac Type Severity Reaction Status Date / Time amoxicillin AdvReac Intermediate vomiting Verified 10/26/21 14:22 doxycycline AdvReac Intermediate vomiting Verified 10/26/21 14:22 General Stated Complaint: Orthopedic SIS: 4 Review of Systems Constitutional Constitutional: Reports as per HPI and Denies weakness Cardiovascular Cardiovascular: Reports as per HPI Respiratory Respiratory: Reports as per HPI and Denies cough Musculoskeletal Musculoskeletal: Reports as per HPI and Denies tingling Integumentary/Breasts Skin/Breast: Reports as per HPI, Denies rash and Denies wounds Neurologic Neurologic: Reports as per HPI, Denies tingling, Denies paresthesias and Denies weakness [facility] All Active Problems (Updated 01/19/22 @ 21:26 by DARIEL Morse) Contusion of hand (Acute) Patient desires (Acute) Anorexia nervosa, binge-eating purging type, extreme (Acute) Bipolar 1 disorder (Acute) Asthma (Chronic) Depression (Chronic) Anxiety (Chronic) Medical History (Updated 01/19/22 @ 21:26 by DARIEL Morse) Bone spur of other site Left knee, superior medial patella Chronic abdominal pain Chronic nausea Contraception 2018. Nexplanon. 2019. Discontinued out of concern it may interfere with psych meds. 2019. DepoProvera. Irreg bleeding. 2020. Nexplanon reinserted. 03/2021. Nexplanon removed 2/2 irreg menses. Rx for NuvaRing. 05/23/21. NuvaRing kept falling out. Xulane patch. Contusion of left wrist Esophagitis GERD (gastroesophageal reflux disease) Lumbago of lumbar region with sciatica Migraine Oligomenorrhea Patellofemoral disorders, left knee Surgical History (Updated 07/17/21 @ 15:59 by Karlee Bergman) History of esophagogastroduodenoscopy (EGD) (~05/2021) Hx of arthroscopic knee surgery Tonsillectomy and adenoidectomy age 10 Family History Mother No problems noted. Father No problems noted. Other Cancer Diabetes Social History (Updated 04/09/21 @ 21:44 by Stephanie Wheeler MD) Smoking/Tobacco Use Status: Current every day Tobacco Type: e-cigarettes Smoking risk assessment performed?: Yes Alcohol Intake: former Drug use: Occasionally Substance use type: marijuana Details: e cigarette pt. 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 Do you feel safe at home: Yes Do you feel safe in your relationship?: Yes Female Reproductive History Menstrual control method: none Exam Const General: cooperative, healthy appearing, comfortable, no acute distress, well developed and well groomed Nutritional Appearance: average body habitus and well nourished Orientation: alert and awake Resp Effort & Inspection: normal respiratory effort, able to speak in complete sentences and no respiratory distress Cardio Rate: regular rate Rhythm: regular rhythm Skin General skin exam: ecchymosis Lesions: no lesions Rashes: no rashes Trauma: no lacerations or abrasions Neuro General: patient alert and patient awake Cognition: normal cognition Speech: speech normal Gait: normal gait Motor: muscle tone normal throughout Sensory Exam: no sensory deficits noted Extrem Hand/finger images: 1. Area of ecchymosis and maximal tenderness. No visible or palpable deformity. 2+ distal pulses, sensation intact, normal capillary refill. Full ROM although pain with maximal movement of the MCP joint. No wrist pain. Ligamentously intact. Psych Appearance: grossly normal and well kempt Mental Status: mental status grossly normal Speech and Movement: speech and movement normal Course Vital Signs Vital signs: Vital Signs Temperature 36.4 C L 01/19/22 20:18 Pulse 98 H 01/19/22 20:18 Respiratory Rate 16 01/19/22 20:18 Blood Pressure 108/70 01/19/22 20:18 Pulse Oximetry 100 01/19/22 20:18 Temperature 36.4 C L 01/19/22 20:18 Temperature Source Axillary 01/19/22 20:18 Pulse 98 H 01/19/22 20:18 Respiratory Rate 16 01/19/22 20:18 Blood Pressure 108/70 01/19/22 20:18 Pulse Oximetry 100 01/19/22 20:18 Pain Level 8 01/19/22 20:18
--- NOTE | 2022-01-19 21:20 | DI.VRAD_ITS ---
PROCEDURE INFORMATION: Exam: XR Right Hand Exam date and time: 01/19/2022 9:05 PM Age: 21 years old Clinical indication: Injury or trauma; Blunt trauma (contusions or hematomas); Hand; Right TECHNIQUE: Imaging protocol: XR Right hand. Views: 3 or more views. COMPARISON: CR RIGHT HAND COMPLETE 09/11/2017 3:11 PM FINDINGS: Bones/joints: Normal. Soft tissues: Normal. IMPRESSION: No acute findings. Dictated and Authenticated by: Chris Romano MD. Ordering:HECTOR Jameson MD
[2022-01-19] MEDS: Ibuprofen 600 MG TAB PO (21:41)
[2022-01-19] MEDS: Acetaminophen 325 MG TAB 650 MG PO (21:41)
== END 2022-01-19 21:43 | disposition home or self-care (01) ==
PROVIDERS: Emergency Provider Physician Assistant; PCP Nurse Practitioner Family
DX: S60.221A Contusion of right hand, initial encounter (principal); W22.01XA Walked into wall, initial encounter
CPT/HCPCS: 99283; 73130

== ENCOUNTER 2022-03-16 12:11 | Outpatient (REF) | payer MEDICAID, SELFPAY ==
[2022-03-18 11:36] LABS: COVID-19 RT-PCR UVMMC Result Negative (Negative)
== END 2022-03-16 12:12 | disposition home or self-care (01) ==
LOC: LBN 12:11
PROVIDERS: PCP Nurse Practitioner Family; Visit Provider Physician Assistant Medical
DX: R06.02 Shortness of breath (principal); Z20.822 Contact with and (suspected) exposure to COVID-19
CPT/HCPCS: U0003

== ENCOUNTER 2022-04-03 03:51 | Outpatient (CLI) | payer MEDICAID, SELFPAY ==
--- NOTE | 2022-04-03 13:00 | NS.NUTBLAN_ITS ---
Reyna returns for nutritional counseling for anorexia with hx of restricting and purging. She notes that in the last 3 weeks, she has started to become very nauseous at meals, having difficulty keeping anything down. She is not . Reyna notes that she has been going to therapy once a week and it is bringing up a lot of negative emotions. She attributes her nausea as a physical symptom of her emotional pain and its manifesting into her eating disorder and body dysmorphia. Wt: 92 lbs 5'2 BMI: 16. Goal Weight: 95-100 lbs. Session today focused on need to meet macronutrient needs for health and for therapy to be successful. She agreed to keep a food log with goal of consuming 1000 kcal, 50 g protein, 40 g fat. She is willing to start to reintroduce her home made protein shake and will also try some over the counter protein shakes such as Slim Fast and Muscle milk. She wrote down a list of safe foods that include apples, jerky, director non profit boy ardee, juice, gatorade. Follow up scheduled for 04/24/22 at 1 pm.
== END 2022-04-03 03:52 | disposition home or self-care (01) ==
LOC: DS 03:51
PROVIDERS: PCP Nurse Practitioner Family; Visit Provider Dietitian, Registered
DX: F50.02 Anorexia nervosa, binge eating/purging type (principal); Z71.3 Dietary counseling and surveillance; F50.82 Avoidant/restrictive food intake disorder
CPT/HCPCS: 97803

== ENCOUNTER 2022-04-24 04:04 | Outpatient (CLI) | payer MEDICAID, SELFPAY ==
--- NOTE | 2022-04-24 13:00 | NS.NUTBLAN_ITS ---
Reyna returns for nutritional counseling for anorexia with restricting, binging and purging. Reports no nausea at meals in last 2 weeks. Has been super busy and that has kept her mind off her urges to restrict. Wt: 91.5lbs 5'2 BMI: 16 Goal Weight: 95-100 lbs Diet Recall: Smoothie for B, Lunch: 2 slices pizza, D: 2 slices pizza No change in weight despite increase in stressors. Able to consume minimum of 1000 kcal, 50 g protein and 40 g fat for weight maintenance. Continues to eat 3 meals daily and has minimal urges, no binging noted, no purging. Will start new mood stabilizers next week- starting Rexulti, effexor, buspar, lorazapam. follow up 05/29/22 at 2 pm.
== END 2022-04-24 04:05 | disposition home or self-care (01) ==
LOC: DS 04:05
PROVIDERS: PCP Nurse Practitioner Family; Visit Provider Dietitian, Registered
DX: F50.02 Anorexia nervosa, binge eating/purging type (principal); F50.82 Avoidant/restrictive food intake disorder; Z71.3 Dietary counseling and surveillance
CPT/HCPCS: 97803

== ENCOUNTER 2022-05-29 12:56 | Outpatient (REF) | payer MEDICAID, SELFPAY ==
--- NOTE | 2022-05-29 11:30 | PAPFT_PTH ---
PATIENT: Reyna Chang LOC: [facility] U#:[id number] AGE/SX: 22/F ROOM: RE05/29/[address]: Jada Duque CNM : 2000 BED: DIS: 05/29/2022 SPEC #: [id number] RECD: 05/29/22 13:23 STATUS: VARUN REQ #: [id number] GILLIAN: 05/29/22 11:[address]: Jada Duque [facility]PT[facility] Cytology RECD BY: Hannah Gonzalez ENTERED: 05/29/22 13:24 SP TYPE: PAPFT OTHR DR: Wayne Ruiz Tissues: 1 - CX/ENDOCX FOR PAP SMEARS Procedures: PAP THIN PREP/UVM Screening Comments: [id number] (CHLAMYDIA/GC)
[2022-05-30 15:59] LABS: Chlamydia Result Negative (Negative); GC Result Negative (Negative)
== END 2022-05-29 12:57 | disposition home or self-care (01) ==
LOC: LBN 12:56
PROVIDERS: PCP Nurse Practitioner Family; Visit Provider Advanced Practice Midwife
DX: Z12.4 Encounter for screening for malignant neoplasm of cervix (principal); Z11.3 Encounter for screening for infections with a predominantly sexual mode of transmission
CPT/HCPCS: 87491; 87591; 88142

== ENCOUNTER 2022-06-26 15:28 | Outpatient (REF) | payer MEDICAID, SELFPAY ==
[2022-06-27 16:08] LABS: Chlamydia Result Negative (Negative); GC Result Negative (Negative)
== END 2022-06-26 15:29 | disposition home or self-care (01) ==
LOC: LBN 15:28
PROVIDERS: PCP Nurse Practitioner Family; Visit Provider Nurse Practitioner Women's Health
DX: Z11.3 Encounter for screening for infections with a predominantly sexual mode of transmission (principal)
CPT/HCPCS: 87491; 87591

== ENCOUNTER 2022-09-08 17:10 | Emergency (ER) | payer MEDICAID, SELFPAY ==
[2022-09-08 17:13] VITALS: BP 105/71; PULSE 87; RESP 16; TEMP 36.8; O2SAT 100
[2022-09-08 17:29] LABS: Bilirubin Negative (Negative); Blood Moderate (Negative); Clarity Cloudy (Clear); Glucose Negative (Negative); Ketones Negative (Negative); Leukocyte Esterase Trace (Negative); Nitrite Negative (Negative); Urobilinogen 0.2 EU/dL (Up TO 0.2); pH 8.5 (5-8)
[2022-09-08 17:35] LABS: Epithelial Cells Many HPF (Negative)
[2022-09-08 17:36] LABS: Bacteria Moderate HPF (Negative); C & S Indicated? No/Sq. Contamination; Casts Negative LPF (Negative); Crystals Negative HPF (Negative); Mucus Moderate (Negative)
--- NOTE | 2022-09-08 17:53 | W.ED.GENAD ---
Discharge Plan Disposition Patient Disposition: Home Condition: Stable Discharge Details Clinical Impression: Dysuria, Vaginal bleeding Primary Care Provider: Anila Ruiz ED Provider: Quinn Reed Home Meds and New Rx's Prescriptions: Continued lorazepam 0.5 mg tablet 0.5 mg PO DAILY PRN buspirone 5 mg tablet 5 mg PO DAILY Melissa 14 mcg/24 hrs (3 yrs) 13.5 mg intrauterine device 1 device intrauterine ONCE Qty: 1 0RF Rx Instructions: as a single dose Rexulti 0.5 mg tablet 0.5 mg PO DAILY venlafaxine [Effexor XR] 37.5 mg capsule,extended release 24hr 37.5 mg PO DAILY Qty: 1 2RF albuterol sulfate [ProAir HFA] 200 PUFF HFA aerosol inhaler 2 puff Inhalation PRN PRN Discharge Instructions Instructions: Abnormal (Dysfunctional) Uterine Bleeding (ED), Dysuria (ED) Additional Instructions: Work-up in the ER does not reveal any obvious emergent process. You may take [id number] Azo for symptomatic control. Also avaj-tuk-dcstrdj Tylenol and or Motrin as directed. Please watch for new or worsening symptoms and return to the ER for any concerns. Your vaginal pathogen swab, gonorrhea, chlamydia, and urine culture are all pending. At this time you would not wish to initiate antibiotic therapy. Please follow-up with women's health on Saturday as already scheduled. Discharge Data Discharge Date/Time-TO BE ENTERED AT DEPARTURE: 09/08/22 19:25 Medical Decision Making 22-year-old female reports having an IUD placed back in May, now over the past 3 days reports she is concerned that the IUD is coming out, mild vaginal bleeding-spotting, which she describes as pelvic cramping and mild dysuria. She is sexually active but denies any STD risk or exposure. Denies any other vaginal discharge. Clinically she appears well, nontoxic. Hemodynamically stable. Pelvic examination completed and obtained gonorrhea and chlamydia swab as well as a vaginal pathogen's. Plan to also obtain a urinalysis and . negative. Initial urinalysis reveals contamination. Obtained additional urine and this urinalysis reveals moderate blood but negative nitrate, negative leuk esterase, 10-20 red cells, 3-5 red cells. Negative bacteria. No obvious signs of infection. POC negative We discussed initiating antibiotic therapy for prophylactic treatment of potential STI, patient declines. She is scheduled to be seen by her [employer] team on Saturday and will discuss her ongoing symptoms as well as her swabs performed today at that time. Standard discharge and return precautions were provided. Patient understands, is agreeable to this plan, and has no additional questions or concerns upon discharge. This documentation was generated using [employer] dictation system, please disregard any oddities of phrase or misspellings. Medical Records Medical records reviewed: Yes I reviewed the patient's medical records. Lab Data Lab results reviewed: Yes I reviewed the patient's lab results. Labs: 09/08/22 18:45 Vaginal Vaginitis Screen - Final Laboratory Tests Range/Units 09/08/22 09/08/22 17:22 17:57 Urine Color (Yellow) Yellow Yellow Urine Clarity (Clear) Cloudy Cloudy Urine pH (5-8) 8.5 H 8.5 H Ur Specific [place] (1.005-1.025) 1.020 1.020 Urine Protein (Negative) mg/dL 100 H 100 H Urine Ketones (Negative) mg/dL Negative Negative Urine Blood (Negative) Moderate H Moderate H Urine Nitrite (Negative) Negative Negative Urine Bilirubin (Negative) Negative Negative Urine Urobilinogen (Up TO 0.2) EU/dL 0.2 0.2 Ur Leukocyte Esterase (Negative) Trace H Negative Urine RBC (0-2) HPF 10-20 H 10-20 H Urine WBC (0-5) HPF 5-10 3-5 Ur Epithelial Cells (Negative) HPF Many Few Urine Crystals (Negative) HPF Negative Negative Urine Bacteria (Negative) HPF Moderate Negative Urine Casts (Negative) LPF Negative Negative Urine Mucus (Negative) Moderate Trace Ur Culture Indicated? No/Sq. Contamination No Urine Glucose (Negative) mg/dL Negative Negative HPI General Mode of arrival: ambulatory. Date/Time Provider Initiated Documentation: 09/08/22 17:18. Limitations to Documentation: no limitations. Information obtained by: patient. HPI Narrative: This is a 22-year-old female, denies significant past medical history, reporting that she had an IUD placed last May timeframe, reports over the past 3 days she has noticed some spotting, dysuria, concerned that her IUD may be coming out. She denies any fever, nausea or vomiting. Reports mild suprapubic cramping occasionally. Reports unchanged low back pain. Patient reports no regular period since the placement of the IUD. She reports being sexually active with 1 partner, denies vaginal discharge or any concern of STD exposure. Patient scheduled to see women's wellness on Saturday but did not want to wait that long as her symptoms were improving. She has not taken any uguk-nfg-zsegqyb medication for symptomatic control. Related Data Home Medications Medication Instructions Recorded Confirmed albuterol sulfate 90 mcg/actuation 2 puff inhalation PRN PRN 05/19/17 09/08/22 aerosol inhaler (ProAir HFA) buspirone 5 mg tablet 5 mg PO DAILY 05/23/21 09/08/22 lorazepam 0.5 mg tablet 0.5 mg PO DAILY PRN 05/23/21 09/08/22 brexpiprazole 0.5 mg tablet 0.5 mg PO DAILY 05/29/22 09/08/22 (Rexulti) venlafaxine 37.5 mg 37.5 mg PO DAILY #1 cap 05/29/22 09/08/22 capsule,extended release 24 hr (Effexor XR) levonorgestrel 14 mcg/24 hrs (3 1 device intrauterine ONCE #1 ea 06/26/22 09/08/22 yrs) 13.5 mg intrauterine device (Melissa) Previous Rx's Medication Instructions Recorded venlafaxine 37.5 mg 37.5 mg PO DAILY #1 cap 05/29/22 capsule,extended release 24 hr (Effexor XR) levonorgestrel 14 mcg/24 hrs (3 1 device intrauterine ONCE #1 ea 06/26/22 yrs) 13.5 mg intrauterine device (Melissa) Allergies Allergy/AdvReac Type Severity Reaction Status Date / Time amoxicillin AdvReac Intermediate vomiting Verified 09/08/22 17:16 doxycycline AdvReac Intermediate vomiting Verified 09/08/22 17:16 General Stated Complaint: [employer] SIS: 3 Review of Systems Constitutional Constitutional: Denies fever(s) Gastrointestinal Gastrointestinal: Reports abdominal pain, Denies diarrhea, Denies nausea and Denies vomiting Genitourinary Genitourinary: Reports abnormal vaginal bleeding, Denies genital lesions, Reports dysuria, Denies pelvic pain and Denies vaginal discharge Musculoskeletal Musculoskeletal: Reports back pain (chronic) Integumentary/Breasts Skin/Breast: Denies rash PFSH All Active Problems Dysuria (Acute) Vaginal bleeding (Acute) IUD surveillance (Acute 06/26/22) melissa Irregular menstrual cycle (Acute) Anorexia nervosa, binge-eating purging type, extreme (Acute) Bipolar 1 disorder (Acute) Asthma (Chronic) Depression (Chronic) Anxiety (Chronic) Medical History Bone spur of other site Left knee, superior medial patella Chronic abdominal pain Chronic nausea Contraception 2018. Nexplanon. 2019. Discontinued out of concern it may interfere with psych meds. 2019. DepoProvera. Irreg bleeding. 2019. Nexplanon reinserted. 03/2021. Nexplanon removed 2/2 irreg menses. Rx for NuvaRing. 05/23/21. NuvaRing kept falling out. Xulane patch. Contusion of left wrist Esophagitis GERD (gastroesophageal reflux disease) Lumbago of lumbar region with sciatica Migraine Oligomenorrhea Patellofemoral disorders, left knee Patient desires Surgical History History of esophagogastroduodenoscopy (EGD) (~05/2021) Hx of arthroscopic knee surgery Tonsillectomy and adenoidectomy age 10 Family History Mother No problems noted. Father No problems noted. Other Cancer Diabetes Social History Smoking/Tobacco Use Status: Current every day Tobacco Type: e-cigarettes Smoking risk assessment performed?: Yes Alcohol Intake: current Alcohol Intake frequency: holidays/special occasions only Alcohol type: hard liquor Drug use: Never Substance use type: does not use Details: e cigarette pt. 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 Do you feel safe at home: Yes Do you feel safe in your relationship?: Yes Female Reproductive History Menstrual control method: progestin IUCD History History 0 Para Hx # Term Pregnancies Multiple births Hx # Pregnancies Ectopic pregnancies AB induced Hx Number of Living Children AB spontaneous Exam Const General: cooperative, healthy appearing, comfortable and no acute distress Orientation: alert and awake HENMT Head: normal to inspection, normocephalic and atraumatic Eyes Conjunctivae: conjunctivae normal Neck Neck: normal visual inspection, full ROM, no meningeal signs, trachea midline and supple Resp Effort & Inspection: normal respiratory effort and able to speak in complete sentences Auscultation: clear to auscultation bilaterally Cardio Rate: regular rate Rhythm: regular rhythm GI Inspection: normal to inspection Palpation: soft, not firm, no guarding, no pulsatile masses and nontender Auscultation: normal bowel sounds External Female Exam: normal external appearance Speculum Exam - Vagina: vaginal bleeding (Scant dark blood) Speculum Exam - Cervix: closed (With IUD strings present) Bimanual Exam- Vagina & Uterus: normal bimanual exam Bimanual Exam- Adnexa, other: normal adnexae OB/External & Speculum: vaginal bleeding (Scant dark blood) Other: Female RN present for examination. Cultures obtained Back/Spine/Pelvis Back: no CVA tenderness and No back tenderness Skin General skin exam: no rashes or lesions noted Neuro General: patient alert, patient awake, moves all extremities and no focal motor deficits Cognition: normal cognition Speech: speech normal Gait: normal gait Sensory Exam: no sensory deficits noted Extrem General: normal to inspection Psych Appearance: grossly normal Mental Status: mental status grossly normal Course Vital Signs Vital signs: Vital Signs Temperature 36.8 C 09/08/22 17:13 Pulse 87 09/08/22 17:13 Respiratory Rate 16 09/08/22 17:13 Blood Pressure 105/71 09/08/22 17:13 Pulse Oximetry 100 09/08/22 17:13 Temperature 36.8 C 09/08/22 17:13 Temperature Source Temporal Artery Scan 09/08/22 17:13 Pulse 87 09/08/22 17:13 Respiratory Rate 16 09/08/22 17:13 Respiratory Effort Non-Labored 09/08/22 17:17 Blood Pressure 105/71 09/08/22 17:13 Blood Pressure Position Sitting 09/08/22 17:13 Pulse Oximetry 100 09/08/22 17:13 Oxygen Delivery Method Room Air 09/08/22 17:13 Oxygen Flow Rate 0 09/08/22 17:13 Pain Level 3 09/08/22 17:28 Lab/Test Results Lab/Test Results: Laboratory Tests Range/Units 09/08/22 17:22 Urine Color (Yellow) Yellow Urine Clarity (Clear) Cloudy Urine pH (5-8) 8.5 H Ur Specific [place] (1.005-1.025) 1.020 Urine Protein (Negative) mg/dL 100 H Urine Ketones (Negative) mg/dL Negative Urine Blood (Negative) Moderate H Urine Nitrite (Negative) Negative Urine Bilirubin (Negative) Negative Urine Urobilinogen (Up TO 0.2) EU/dL 0.2 Ur Leukocyte Esterase (Negative) Trace H Urine RBC (0-2) HPF 10-20 H Urine WBC (0-5) HPF 5-10 Ur Epithelial Cells (Negative) HPF Many Urine Crystals (Negative) HPF Negative Urine Bacteria (Negative) HPF Moderate Urine Casts (Negative) LPF Negative Urine Mucus (Negative) Moderate Ur Culture Indicated? No/Sq. Contamination Urine Glucose (Negative) mg/dL Negative POC- Test(urine) Negative PAWSS Have you Been Recently Intoxicated or Drunk Within the Last 30 days?: No Have you Ever Experienced Previous Episodes of Alcohol Withdrawal?: No Have you ever Experienced Withdrawal Seizures?: No Have you ever Experienced Delirium Tremens(DT)s?: No Have you ever undergone Alcohol Rehabilitation Treatment (i.e, inpt ot outpatient treatment programs)?: No Have you ever Experienced Blackouts?: No Have you ever Combined Alcohol with other Downers within the last 90 days?: No Have you ever Combined Alcohol with any other Substance of Abuse during the last 90 days?: No Positive Blood Alcohol level on Presentation? [PCS.BAL]: No Evidence of Increased Autonomic Activity (i.e. HR>120, tremor, sweating, agitation, nausea)?: No Result: 0
[2022-09-08 18:00] LABS: Bilirubin Negative (Negative); Blood Moderate (Negative); Clarity Cloudy (Clear); Glucose Negative (Negative); Ketones Negative (Negative); Leukocyte Esterase Negative (Negative); Nitrite Negative (Negative); Urobilinogen 0.2 EU/dL (Up TO 0.2); pH 8.5 (5-8)
[2022-09-08 18:05] LABS: Bacteria Negative HPF (Negative); C & S Indicated? No; Casts Negative LPF (Negative); Crystals Negative HPF (Negative); Epithelial Cells Few HPF (Negative); Mucus Trace (Negative)
[2022-09-10 13:30] LABS: Chlamydia Result Negative (Negative); GC Result Negative (Negative)
== END 2022-09-08 19:25 | disposition home or self-care (01) ==
PROVIDERS: Emergency Provider Physician Assistant; PCP Nurse Practitioner Family
DX: N93.9 Abnormal uterine and vaginal bleeding, unspecified (principal); R30.0 Dysuria; R10.2 Pelvic and perineal pain
CPT/HCPCS: 81025; 87491; 87591; 99282; 81003; 81015; 87480; 87510; 87660

== ENCOUNTER 2022-11-16 11:24 | Outpatient (REF) | payer MEDICAID, SELFPAY ==
[2022-11-17 15:00] LABS: Chlamydia Result Negative (Negative); GC Result Negative (Negative)
== END 2022-11-16 11:25 | disposition home or self-care (01) ==
LOC: LBN 11:24
PROVIDERS: PCP Nurse Practitioner Family; Visit Provider Obstetrics & Gynecology Gynecology
DX: Z11.3 Encounter for screening for infections with a predominantly sexual mode of transmission (principal)
CPT/HCPCS: 87491; 87591

== ENCOUNTER 2023-04-05 00:38 | Outpatient (CLI) | payer SELFPAY ==
--- NOTE | 2023-04-05 08:00 | DI.US_ITS ---
Exam(s) US PELVIS TRANSVAGINAL EXAM: US PELVIS TRANSVAGINAL CLINICAL HISTORY: anatomy, DYSMENORRHEA, N94.6 TECHNIQUE: Transabdominal and transvaginal imaging was performed using standard protocol. COMPARISON: No exams were available for comparison FINDINGS: UTERUS: Anteverted. 6 x 4 x 2 x 3 x 4.2 cm Endometrium: 6 mm Myometrium: Unremarkable. Cervix: Unremarkable. OVARIES: Right: Cyst or mass: 2.2 centimeter dominant follicle Left: Cyst or mass: None. DOPPLER: Color: Symmetric and uniform flow to both ovaries. No hyperemia. CUL-DE-SAC: Free fluid: None. IMPRESSION: 1. Normal-appearing uterus with endometrial stripe within normal limits. 2. Unremarkable bilateral ovaries. DATA REPOSITORY:
== END 2023-04-05 00:58 ==
PROVIDERS: PCP Nurse Practitioner Family; Visit Provider Obstetrics & Gynecology
DX: N94.6 Dysmenorrhea, unspecified (principal)
CPT/HCPCS: 76830; 76856

== ENCOUNTER 2023-04-15 12:33 | Outpatient (CLI) | payer SELFPAY ==
[2023-04-15 12:35] LABS: HCG Quant, Pregnancy < 1 mIU/mL (1-3); TSH (W/Ref FT4) 1.69 uIU/mL (0.36-3.74)
== END 2023-04-15 12:34 | disposition home or self-care (01) ==
PROVIDERS: PCP Nurse Practitioner Family; Visit Provider Nurse Practitioner Women's Health
DX: N91.2 Amenorrhea, unspecified (principal)
CPT/HCPCS: 36415; 84146; 84443; 84702

== ENCOUNTER 2024-01-31 10:46 | Emergency (ER) | payer MEDICAID, SELFPAY ==
[2024-01-31 10:50] VITALS: BP 116/86; PULSE 84; RESP 16; TEMP 37; O2SAT 100
--- NOTE | 2024-01-31 11:04 | W.ED.GENAD ---
Discharge Plan Disposition Patient Disposition: Home Condition: Stable Discharge Details Clinical Impression: Vaginal bleeding affecting early Primary Care Provider: Anila Ruiz ED Provider: Rene Osman Home Meds and New Rx's Prescriptions: Continued nicotine 21 mg/24 hr patch 24 hour 1 patch transdermal DAILY Qty: 28 0RF vit,[id number] 29-1 mg tablet 1 tab PO DAILY Qty: 90 4RF albuterol sulfate [ProAir HFA] 200 PUFF HFA aerosol inhaler 2 puff Inhalation PRN PRN Discharge Instructions Instructions: Threatened Miscarriage (ED) Additional Instructions: You were seen in the emergency department for your scant vaginal bleeding and some cramping in the setting of early . Your hCG level is quite low, it is possible you had a miscarriage but I did speak with OB and they will schedule you for repeat blood draw on Saturday as well as a follow-up appointment in the office. In the meantime please return to the emergency department for any severe increase in vaginal bleeding, any severe increase in lower abdominal pain. Referrals: [facility] [Provider Group] Anila Ruiz [Primary Care Provider] - Discharge Data Discharge Date/Time-TO BE ENTERED AT DEPARTURE: 01/31/24 13:03 HPI General Date/Time Provider Initiated Documentation: 01/31/24 10:55. HPI Narrative: 23 year-old female presents to ED today by POV/ambulating with her friend with a chief complaint of states she is 7 weeks 5 days , had some scant vaginal bleeding and mild abdominal cramping last night, with some passage of a couple clots. Quality described as mild cramping, no radiation to severe abdominal pain, fever, heavy vaginal bleeding, vaginal discharge, risk of STI, nausea/vomiting. Severity is described as mild. Palliating factors include nothing specific attempted. Provoking factors include nothing specific. Events leading up to the incident/Associated Symptoms: Patient has had prior miscariage at 5 weeks in October, attempted to call [facility], they urged ED evaluation and possible ultrasound by telephone triage. Patient not anticoagulated. Related Data Home Medications Medication Instructions Recorded Confirmed albuterol sulfate 90 mcg/actuation 2 puff inhalation PRN PRN 05/19/17 01/31/24 aerosol inhaler (ProAir HFA) nicotine 21 mg/24 hr daily 1 patch transdermal DAILY #28 ea 01/28/24 01/31/24 transdermal patch vits,calcium no.78-iron 1 tab PO DAILY #90 tabs 01/28/24 01/31/24 fumarate-folic acid 29 mg-1 mg tablet Previous Rx's Medication Instructions Recorded nicotine 21 mg/24 hr daily 1 patch transdermal DAILY #28 ea 01/28/24 transdermal patch vits,calcium no.78-iron 1 tab PO DAILY #90 tabs 01/28/24 fumarate-folic acid 29 mg-1 mg tablet Allergies Allergy/AdvReac Type Severity Reaction Status Date / Time amoxicillin AdvReac Intermediate vomiting Verified 01/31/24 11:21 doxycycline AdvReac Intermediate vomiting Verified 01/31/24 11:21 General Stated Complaint: PRIMARY THERAPIST SIS: 3 Review of Systems All systems reviewed & are unremarkable except as noted in HPI and below Exam Narrative Exam Narrative: GENERAL APPEARANCE: Well-nourished, non-toxic, awake and alert, atraumatic, no acute distress. SKIN: Warm, pink, dry, intact, without rashes/lesions/ulcerations. HEAD: Normocephalic, atraumatic, normal hair distribution for gender/age. EYES: Pupils PERRLA, EOMs intact without nystagmus, normal conjunctiva, no exudates on lids/lashes. ENT: Nares patent, no circumoral cyanosis, no facial swelling NECK: Supple, trachea midline, painless cervical ROM. LUNGS/CHEST: Non-labored respirations, normal A/P diameter, symmetrical expansion, no chest wall deformity HEART (CV/PV): No peripheral edema, no JVD. ABDOMEN: Soft, non-distended, no guarding, no focal tenderness/Rovsing's, McBurney's point tenderness. Pelvic: deferred at patient preference to [facility] close follow-up after reassurance labs and consult. MSK: Normal ROM, no swelling/deformity to bilateral UEs or LEs, moving all extremities without weakness, no cyanosis, spine midline without tenderness, normal curvature. NEURO: Mental Status AAOx4 - alert to person, place, time, events No facial droop, no forehead involvement. Motor: No focal weakness - strength 5/5 in bilateral UEs and LEs, proximal and distal, symmetric. Sensory: sensation intact to light touch globally. Gait normal: patient ambulated without ataxia into ED room. PSYCH: euthymic, cooperative, pleasant, appropriate speech Course Vital Signs Vital signs: Vital Signs Temperature 37.0 C 01/31/24 10:50 Pulse 84 01/31/24 10:50 Respiratory Rate 16 01/31/24 10:50 Blood Pressure 116/86 01/31/24 10:50 Pulse Oximetry 100 01/31/24 10:50 Temperature 37.0 C 01/31/24 10:50 Temperature Source Tympanic 01/31/24 10:50 Pulse 84 01/31/24 10:50 Respiratory Rate 16 01/31/24 10:50 Blood Pressure 116/86 01/31/24 10:50 Blood Pressure Position Sitting 01/31/24 10:50 Pulse Oximetry 100 01/31/24 10:50 Oxygen Delivery Method Room Air 01/31/24 10:50 Oxygen Flow Rate 0 01/31/24 10:50 Pain Level 0 01/31/24 10:50 Medical Decision Making This dictation utilizes [id number] dictation software and may contain unedited grammatical errors. 23 y/o F presents to ED today with a chief complaint of some sinus bonding and vaginal bleeding last night passed a couple tiny blood clots with mild abdominal cramping in the setting of 7 weeks 5 days . Attempted [facility] but they could not fit her in the schedule today so they referred to ER for evaluation. Patient has had prior miscarriage at 5 weeks back in October. Patients' medical history: Miscarriage, irregular menstrual cycle, anorexia. Family and social history: Noncontributory, desires . Pertinent exam findings / vital signs include benign abdomen without focal tenderness or peritoneal signs, benign cardiopulmonary status with stable vitals, no CVA tenderness to percussion Differential / pathologies of concern include threatened miscarriage, vaginal bleeding of early , completed miscarriage. Diagnostic studies of: -UA, beta hCG quantitative. -UA shows blood and protein, 3-5 WBCs -Beta hCG quantitative shows 115, quite low for patient's reported 7 weeks 5 days into , shows that ultrasound would not likely be useful at this time Interventions of: -Consulted with PRIMARY THERAPIST on-call, discussed laboratory results and scant abdominal bleeding without abdominal tenderness, they agree that ultrasound would not likely be useful at this time, they will repeat an hCG on Saturday with the patient having close follow-up appointment. Low suspicion for any ectopic without profound exam. ED Course/Assessment/Plan: 24-year-old female with history of miscarriage presents 7 weeks 5 days into with some scant vaginal bleeding and cramping last night, she has no focal abdominal severe tenderness I do not suspect ectopic , her hCG is quite low and I do not even suspect we would yield any valuable images on ultrasound, I did discuss with PRIMARY THERAPIST who will follow-up with the patient closely, stressed strict return criteria for any increasing abdominal pain or vaginal bleeding, dizziness, dysuria or discharge, fever. Findings not consistent with ecoptic . Disposition of Vaginal Bleeding Affecting Early . Patient verbalized understanding of the plan and return to ED criteria and engaged in shared decision making. Medical Records Medical records reviewed: Yes I reviewed the patient's medical records. Lab Data Lab results reviewed: Yes I reviewed the patient's lab results. Labs: Laboratory Tests Range/Units 01/31/24 11:20 Beta HCG, Quant (1-3) mIU/mL 115 H Urine Color (Yellow) Yellow Urine Clarity (Clear) Clear Urine pH (5-8) 8.5 H Ur Specific [place] (1.005-1.025) 1.020 Urine Protein (Neg-Trace) mg/dL 30 H Urine Ketones (Negative) mg/dL Negative Urine Blood (Negative) Large H Urine Nitrite (Negative) Negative Urine Bilirubin (Negative) Negative Urine Urobilinogen (Up to 0.2) mg/dL 0.2 Ur Leukocyte Esterase (Negative) Negative Urine RBC (0-2) HPF 0-2 Urine WBC (0-5) HPF 3-5 Ur Epithelial Cells (Negative) HPF Few Urine Crystals (Negative) HPF Negative Urine Bacteria (Negative) HPF Negative Urine Casts (Negative) LPF 3-5 Hyaline Urine Mucus (Negative) Moderate Urine Other (Negative) Negative Ur Culture Indicated? No Urine Glucose (Negative) mg/dL Negative Quality:SDOH Health Related Social Needs: No Data to Display PFSH All Active Problems (Updated 01/31/24 @ 12:40 by DARIEL Chatman) Vaginal bleeding affecting early (Acute) Smoker (Acute) Painful orthopaedic hardware (Acute) S/P medial patellofemoral ligament reconstruction (Acute) Dysmenorrhea (Acute) Encounter for screening examination for sexually transmitted disease (Acute) Irregular menstrual cycle (Acute) Anorexia nervosa, binge-eating purging type, extreme (Acute) Bipolar 1 disorder (Acute) Anxiety (Chronic) Depression (Chronic) Asthma (Chronic) Medical History (Updated 01/31/24 @ 12:40 by DARIEL Chatman) Miscarried within last 12 months IUD surveillance (06/26/22) jada Patient desires Oligomenorrhea Migraine Esophagitis Contusion of left wrist GERD (gastroesophageal reflux disease) Chronic abdominal pain Chronic nausea Contraception 2018. Nexplanon. 2019. Discontinued out of concern it may interfere with psych meds. 2019. DepoProvera. Irreg bleeding. 2019. Nexplanon reinserted. 03/2021. Nexplanon removed 2/2 irreg menses. Rx for NuvaRing. 05/23/21. NuvaRing kept falling out. Xulane patch. Lumbago of lumbar region with sciatica Patellofemoral disorders, left knee Bone spur of other site Left knee, superior medial patella Surgical History History of esophagogastroduodenoscopy (EGD) (~05/2021) Hx of arthroscopic knee surgery Tonsillectomy and adenoidectomy age 10 Family History Mother No problems noted. Father No problems noted. 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
[2024-01-31 11:28] LABS: Bilirubin Negative (Negative); Blood Large (Negative); Clarity Clear (Clear); Glucose Negative (Negative); Ketones Negative (Negative); Leukocyte Esterase Negative (Negative); Nitrite Negative (Negative); Urobilinogen 0.2 mg/dL (Up to 0.2); pH 8.5 (5-8)
[2024-01-31 11:49] LABS: Epithelial Cells Few HPF (Negative); Other Cells Negative (Negative); RBC 0-2 HPF (0-2)
[2024-01-31 11:50] LABS: C & S Indicated? No; Casts 3-5 Hyaline LPF (Negative); Mucus Moderate (Negative)
[2024-01-31 11:54] LABS: Crystals Negative HPF (Negative)
[2024-01-31 11:58] LABS: Bacteria Negative HPF (Negative)
[2024-01-31 12:11] LABS: HCG Quant, Pregnancy 115 mIU/mL (1-3)
[2024-01-31 12:41] VITALS: BP 122/78; PULSE 76; RESP 14; O2SAT 98
== END 2024-01-31 13:03 | disposition home or self-care (01) ==
PROVIDERS: Emergency Provider Physician Assistant; PCP Nurse Practitioner Family
DX: O20.9 Hemorrhage in early pregnancy, unspecified (principal); O99.331 Smoking (tobacco) complicating pregnancy, first trimester; F17.290 Nicotine dependence, other tobacco product, uncomplicated; Z3A.01 Less than 8 weeks gestation of pregnancy
CPT/HCPCS: 99283; 81003; 81015; 84702

== ENCOUNTER 2024-02-03 05:03 | Outpatient (CLI) | payer MEDICAID, SELFPAY ==
[2024-02-03 11:30] LABS: HCG Quant, Pregnancy 22 mIU/mL (1-3)
== END 2024-02-03 05:04 | disposition home or self-care (01) ==
LOC: LBO 05:03
PROVIDERS: Obstetrics & Gynecology; PCP Nurse Practitioner Family; Visit Provider Advanced Practice Midwife
DX: O26.851 Spotting complicating pregnancy, first trimester (principal); Z3A.01 Less than 8 weeks gestation of pregnancy
CPT/HCPCS: 36415; 84702

== ENCOUNTER 2024-04-16 11:09 | Emergency (ER) | payer MEDICAID, SELFPAY ==
--- NOTE | 2024-04-16 11:00 | RT.EKG_ITS ---
APPROVED REPORT Exam: Resting ECG Reason for Exam: chest pain Patient Location: E HR:84 bpm ECG Measurements Heart Rate 84 AXIS CA 150 P 69 QRSd 58 QRS 67 QT 351 T 35 QTc 416 Conclusion Sinus rhythm...normal P axis, V-rate 60- 99
[2024-04-16 11:13] VITALS: BP 117/86; PULSE 88; RESP 20; TEMP 36.7; O2SAT 100
--- NOTE | 2024-04-16 11:21 | ED.GENADUL_ITS ---
Discharge Plan Disposition Patient Disposition: Home Condition: Stable Discharge Details Clinical Impression: Costochondritis Primary Care Provider: Anila Ruiz ED Provider: Rene Osman Home Meds and New Rx's Prescriptions: No Action vit,wing27-pauk-favgf 29-1 mg tablet 1 tab PO DAILY Qty: 90 4RF albuterol sulfate [ProAir HFA] 200 PUFF HFA aerosol inhaler 2 puff Inhalation PRN PRN Discharge Instructions Instructions: Costochondritis Additional Instructions: You were seen in the emergency department for your chest pain of uncertain cause, there is no damage occurring to your heart and your EKG is reassuring for no cardiac arrhythmia or abnormality. The laboratory value of a D-dimer was negative indicating no blood clot in your lungs, you do have tenderness over the intercostal muscles and I think that you have costochondritis, you may take Tylenol and ibuprofen as needed apply gentle heat and massage to the area or apply topical kkvi-hln-[id number] anti-inflammatory like Voltaren gel to the area. Please monitor your condition and return for any worsening especially coupled with other worrying symptoms like sweating, dizziness, visual changes, near fainting. Referrals: Anila Ruiz [Primary Care Provider] - Discharge Data Discharge Date/Time-TO BE ENTERED AT DEPARTURE: 04/16/24 13:34 HPI <DARIEL Chatman - Last Filed: 04/16/24 15:46> General Date/Time Provider Initiated Documentation: 04/16/24 11:21 . HPI Narrative: 23 year-old female presents to ED today by POV/ambulating with a chief complaint of chest pain, L sided, sharp, tender to touch, mild SOB with onset last night. Quality described as L arm tingling, less severe chest pain, no radiation to sweating, near fainting, cough, fever, hemoptysis, shortness of breath on exertion. Severity is described as moderate. Palliating factors include nothing specific. Provoking factors include nothing specific. Events leading up to the incident/Associated Symptoms: Patient denies any known cardiac history or family history of cardiac disease at young age, does vape. Patient not anticoagulated. Related Data Home Medications ?Medication ?Instructions ?Recorded ?Confirmed albuterol sulfate 90 mcg/actuation 2 puff inhalation PRN PRN 05/19/17 04/16/24 aerosol inhaler (ProAir HFA) vits,calcium no.78-iron 1 tab PO DAILY #90 tabs 01/28/24 04/16/24 fumarate-folic acid 29 mg-1 mg tablet Previous Rx's ?Medication ?Instructions ?Recorded vits,calcium no.78-iron 1 tab PO DAILY #90 tabs 01/28/24 fumarate-folic acid 29 mg-1 mg tablet Allergies Allergy/AdvReac Type Severity Reaction Status Date / Time amoxicillin AdvReac Intermediate vomiting Verified 04/16/24 11:16 doxycycline AdvReac Intermediate vomiting Verified 04/16/24 11:16 General Stated Complaint: Chest Pain SIS: 3 Review of Systems <DARIEL Chatman - Last Filed: 04/16/24 15:46> All systems reviewed & are unremarkable except as noted in HPI and below Exam <DARIEL Chatman - Last Filed: 04/16/24 15:46> Narrative Exam Narrative: GENERAL APPEARANCE: Well-nourished, non-toxic, awake and alert, atraumatic, no acute distress. SKIN: Warm, pink, dry, intact, without rashes/lesions/ulcerations. HEAD: Normocephalic, atraumatic, normal hair distribution for gender/age. EYES: Normal conjunctiva, no exudates on lids/lashes. ENT: Nares patent, no circumoral cyanosis, no facial swelling NECK: Supple, trachea midline, painless cervical ROM. LUNGS/CHEST: Lungs CTA bilaterally- no rhonchi/rales/wheezes diffusely, non- labored respirations, normal A/P diameter, symmetrical expansion, no chest wall deformity HEART (CV/PV): Regular rate and rhythm without murmur, no peripheral edema, no JVD. ABDOMEN: Soft, non-distended, no guarding, no tenderness. MSK: Normal ROM, no swelling/deformity to bilateral UEs or LEs, moving all extremities without weakness, no cyanosis, spine midline without tenderness, normal curvature. NEURO: Mental Status AAOx4 - alert to person, place, time, events No facial droop, no forehead involvement. Motor: No focal weakness - strength 5/5 in bilateral UEs and LEs, proximal and distal, symmetric. Sensory: sensation intact to light touch globally. Gait normal: patient ambulated without ataxia into ED room. PSYCH: euthymic, cooperative, pleasant, appropriate speech Course <DARIEL Chatman - Last Filed: 04/16/24 15:46> Vital Signs Vital signs: Vital Signs Temperature 36.7 C 04/16/24 11:13 Pulse 88 04/16/24 11:13 Respiratory Rate 20 04/16/24 11:13 Blood Pressure 117/86 04/16/24 11:13 Pulse Oximetry 100 04/16/24 11:13 Temperature 36.7 C 04/16/24 11:13 Temperature Source Oral 04/16/24 11:13 Pulse 88 04/16/24 11:13 Respiratory Rate 20 04/16/24 11:13 Blood Pressure 117/86 04/16/24 11:13 Pulse Oximetry 100 04/16/24 11:13 Oxygen Delivery Method Room Air 04/16/24 11:13 Oxygen Flow Rate 0 04/16/24 11:13 Pain Level 4 04/16/24 11:13 Medical Decision Making <DARIEL Chatman - Last Filed: 04/16/24 15:46> This dictation utilizes [id number] dictation software and may contain unedited grammatical errors. 23 year-old female presents to ED today by POV/ambulating with a chief complaint of chest pain, L sided, sharp, tender to touch, mild SOB with onset last night. Quality described as L arm tingling, less severe chest pain, no radiation to sweating, near fainting, cough, fever, hemoptysis, shortness of breath on exertion. Severity is described as moderate. Palliating factors include nothing specific. Provoking factors include nothing specific. Events leading up to the incident/Associated Symptoms: Patient denies any known cardiac history or family history of cardiac disease at young age, does vape. Patients' medical history: Noncontributory. Family and social history: Noncontributory. Pertinent exam findings / vital signs include benign cardiopulmonary exam, neuro intact, nontoxic and afebrile. Differential / pathologies of concern include anxiety, costochondritis, emergency unlikely ACS. Diagnostic studies of: -CBC, CMP, troponin, D-dimer, TSH, EKG, x-ray chest. -CBC is benign -D-dimer negative -Troponin negative -TSH within normal limits -CMP benign -EKG without cardiac abnormalities or STEMI or arrhythmia, normal intervals, normal axis -X-ray chest shows no pneumothorax, no pneumonia Interventions of: -I recommend sxht-txi-avnshdm analgesics and compresses to the area. ED Course/Assessment/Plan: 23-year-old female with left-sided chest tenderness and left arm tingling presents with chest pain since last night, troponin is negative with reliable onset, D-dimer negative, x-ray shows no acute abnormality, patient may have a pleurisy versus costochondritis with her vaping history, I counseled her on anti-inflammatory use and provided reassurance, low risk on heart score. Findings not consistent with ACS, PE, pneumothorax, pneumonia. Disposition of costochondritis. Patient verbalized understanding of the plan and return to ED criteria and engaged in shared decision making. Medical Records Medical records reviewed: Yes I reviewed the patient's medical records. Imaging Data Radiologic Study: Attestation: I personally reviewed and interpreted this imaging study as follows: Imaging: X-Ray Radiologist's impression: EXAM: XR CHEST 2V PA LATERAL CLINICAL HISTORY: chest pain TECHNIQUE: 2D digital imaging was performed of the chest. Three images were obtained. PA and lateral views were obtained. COMPARISON: CR,XR XR CHEST 2V PA LATERAL from 08/24/2019 FINDINGS: MEDIASTINUM: Normal. HEART: Normal. PULMONARY VASCULATURE: Normal. LUNGS: Clear. PLEURAL SPACE: No pleural effusion or pneumothorax. BONE:Within normal limits for the patient's age. OTHER FINDINGS:Normal. IMPRESSION: No acute pulmonary findings. Lab Data Lab results reviewed: Yes I reviewed the patient's lab results. Labs: Laboratory Tests Range/Units 04/16/24 04/16/24 11:24 11:37 WBC (4.4-10.8) 10^3/uL 4.31 L RBC (3.93-5.22) 10^6/uL 4.26 Hgb (11.2-15.7) g/dL 12.8 Hct (36.0-46.0) % 37.9 MCV (80-95) fL 89 MCH (27.0-33.0) pg 30.0 MCHC (32.0-36.0) % 33.8 RDW (11.7-14.6) % 12.5 Plt Count (130-400) 10^3/uL 294 MPV (8.0-11.0) fL 10.5 Immature Gran % % 0.2 Neutrophils % % 57.2 Lymphocytes % % 31.3 Monocytes % % 4.6 Eosinophils % % 5.8 Basophils % % 0.9 Nucleated RBC % (0.0-0.3) % 0.0 Absolute Neutrophils (1.2-6.7) 10^3/uL 2.47 Absolute Lymphocytes (1.2-3.4) 10^3/uL 1.35 Absolute Monocytes (0.1-0.8) 10^3/uL 0.20 Absolute Eosinophils (0.0-0.7) 10^3/uL 0.25 Absolute Basophils (0.0-0.2) 10^3/uL 0.04 D-Dimer (<500) ng/mlFEU 168 Sodium (136-145) mmol/L 141 Potassium (3.5-5.1) mmol/L 3.2 L Chloride (98-107) mmol/L 105 Carbon Dioxide (21.0-32.0) mmol/L 27.6 Anion Gap (3-11) mmol/L 8.4 BUN (7-18) mg/dL 15 Creatinine (0.55-1.02) mg/dL 0.8 Est GFR (CKD-EPI 2020) (mL/min/1.73m2) 106.77 Glucose (74-106) mg/dL 93 Calcium (8.5-10.1) mg/dL 9.0 Total Bilirubin (0.2-1.0) mg/dL 0.36 AST (15-37) U/L 11 L ALT (14-59) U/L 19 Alkaline Phosphatase (46-116) U/L 52 Troponin I (< or =60) ng/L < 50 Total Protein (6.4-8.2) g/dL 7.0 Albumin (3.4-5.0) g/dL 4.1 TSH (0.36-3.74) uIU/mL 1.23 Quality:SDOH Health Related Social Needs: No Data to Display <Ricardo Reeves MD - Last Filed: 04/27/24 17:29> Date: 04/16/24 Time: 11:47 Note: Patient seen, examined, and discussed with DARIEL Gagnon. I agree with treatment plan as discussed/documented. PFSH <DARIEL Chatman - Last Filed: 04/16/24 15:46> All Active Problems (Updated 04/16/24 @ 13:24 by DARIEL Chatman) Costochondritis (Acute) Miscarriage (Acute) Smoker (Acute) Painful orthopaedic hardware (Acute) S/P medial patellofemoral ligament reconstruction (Acute) Dysmenorrhea (Acute) Encounter for screening examination for sexually transmitted disease (Acute) Irregular menstrual cycle (Acute) Anorexia nervosa, binge-eating purging type, extreme (Acute) Bipolar 1 disorder (Acute) Anxiety (Chronic) Depression (Chronic) Asthma (Chronic) Medical History Miscarried within last 12 months IUD surveillance (06/26/22) jada Patient desires Oligomenorrhea Migraine Esophagitis Contusion of left wrist GERD (gastroesophageal reflux disease) Chronic abdominal pain Chronic nausea Contraception 2018. Nexplanon. 2019. Discontinued out of concern it may interfere with psych meds. 2019. DepoProvera. Irreg bleeding. 2019. Nexplanon reinserted. 03/2021. Nexplanon removed 2/2 irreg menses. Rx for NuvaRing. 05/23/21. NuvaRing kept falling out. Xulane patch. Lumbago of lumbar region with sciatica Patellofemoral disorders, left knee Bone spur of other site Left knee, superior medial patella Surgical History History of esophagogastroduodenoscopy (EGD) (~05/2021) Hx of arthroscopic knee surgery Tonsillectomy and adenoidectomy age 10 Family History (Updated 03/25/24 @ 14:49 by Jia Alcantara NP) Maternal Aunt MTHFR mutation Maternal Cousin MTHFR mutation Other Cancer Diabetes Social History Smoking/Tobacco Use Status: Current every day Tobacco Type: e-cigarettes Smoking risk assessment performed?: Yes Alcohol Intake: current Alcohol Intake frequency: holidays/special occasions only Alcohol type: hard liquor Drug use: Never Substance use type: does not use Household members: other Details: - [place] Housing: house Number of Children: 0 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
[2024-04-16 11:34] LABS: Abs Immature Grans 0.01 10^3/uL (0.0-0.06); Absolute Basophil Count 0.04 10^3/uL (0.0-0.2); Absolute Eosinophil Count 0.25 10^3/uL (0.0-0.7); Absolute Lymphocyte Count 1.35 10^3/uL (1.2-3.4); Basophils % 0.9 %; Eosinophils % 5.8 %; HCT 37.9 % (36.0-46.0); HGB 12.8 g/dL (11.2-15.7); Immature Grans % 0.2 %; Lymphocytes % 31.3 %; MCHC 33.8 % (32.0-36.0); MCV 89 fL (80-95); MPV 10.5 fL (8.0-11.0); Monocytes % 4.6 %; Neutrophils % 57.2 %; Platelet Count 294 10^3/uL (130-400); RBC 4.26 10^6/uL (3.93-5.22); RDW 12.5 % (11.7-14.6); RDW-SD 40.8 fL; WBC 4.31 10^3/uL (4.4-10.8)
[2024-04-16 11:36] LABS: Absolute Neutrophil Count 2.47 10^3/uL (1.2-6.7)
[2024-04-16 11:40] VITALS: BP 120/93; PULSE 78; RESP 22; TEMP 36.6; O2SAT 98
[2024-04-16 11:59] LABS: ALT 19 U/L (14-59); AST 11 U/L (15-37); Albumin 4.1 g/dL (3.4-5.0); Alkaline Phosphatase 52 U/L (46-116); Anion Gap 8.4 mmol/L (3-11); BUN 15 mg/dL (7-18); Bilirubin, Total 0.36 mg/dL (0.2-1.0); CO2 27.6 mmol/L (21.0-32.0); CREATININE 0.8 mg/dL (0.55-1.02); Chloride 105 mmol/L (98-107); Estimated GFR 106.77 (mL/min/1.73m2); Glucose 93 mg/dL (74-106); Potassium 3.2 mmol/L (3.5-5.1); Sodium 141 mmol/L (136-145); TSH (W/Ref FT4) 1.23 uIU/mL (0.36-3.74); Troponin I < 50 ng/L (< or =60)
[2024-04-16] MEDS: Normal Saline 1,000 ML 1000 ML IV (11:59)
[2024-04-16 12:14] LABS: D-Dimer 168 ng/mlFEU (<500)
--- NOTE | 2024-04-16 12:30 | DI.RAD_ITS ---
Exam(s) XR CHEST 2V PA LATERAL EXAM: XR CHEST 2V PA LATERAL CLINICAL HISTORY: chest pain TECHNIQUE: 2D digital imaging was performed of the chest. Three images were obtained. PA and later al views were obtained. COMPARISON: CR,XR XR CHEST 2V PA LATERAL from 08/24/2019 FINDINGS: MEDIASTINUM: Normal. HEART: Normal. PULMONARY VASCULATURE: Normal. LUNGS: Clear. PLEURAL SPACE: No pleural effusion or pneumothorax. BONE:Within normal limits for the patient's age. OTHER FINDINGS:Normal. IMPRESSION: No acute pulmonary findings. DATA REPOSITORY: RADIATION DOSE DELIVERED:
== END 2024-04-16 13:34 | disposition home or self-care (01) ==
PROVIDERS: Emergency Provider Physician Assistant; PCP Nurse Practitioner Family
DX: M94.0 Chondrocostal junction syndrome [Tietze] (principal)
CPT/HCPCS: 80053; 81025; 93005; 96360; 96361; 99285; 71046; 84443; 84484; 85025; 85379; 93010; 99284

== ENCOUNTER 2024-06-03 10:44 | Outpatient (REF) | payer MEDICAID, SELFPAY | END 2024-06-03 10:45 | disposition home or self-care (01) | LOC: LBN 10:44 | PROVIDERS: PCP Nurse Practitioner Family; Visit Provider Nurse Practitioner Family | DX: J02.9 Acute pharyngitis, unspecified (principal) | CPT/HCPCS: 87070 ==

== ENCOUNTER 2024-07-06 15:20 | Outpatient (CLI) | payer MEDICAID, SELFPAY ==
--- NOTE | 2024-07-06 15:15 | RT.EKG_ITS ---
APPROVED REPORT Exam: Resting ECG Reason for Exam: Chest discomfort Patient Location: O HR:71 bpm ECG Measurements Heart Rate 71 AXIS RI 134 P 83 QRSd 89 QRS 73 QT 375 T 54 QTc 408 Conclusion Sinus rhythm...normal P axis, V-rate 50- 99 Probable left atrial enlargement...P >50mS, <-0.10mV V1 Otherwise normal ECG
== END 2024-07-06 15:21 | disposition home or self-care (01) ==
LOC: DI.CM 15:20
PROVIDERS: PCP Nurse Practitioner Family; Visit Provider Physician Assistant
DX: R07.89 Other chest pain (principal)
CPT/HCPCS: 93010

== ENCOUNTER 2024-07-06 16:30 | Emergency (ER) | payer MEDICAID, SELFPAY ==
--- NOTE | 2024-07-06 16:30 | RT.EKG_ITS ---
APPROVED REPORT Exam: Resting ECG Reason for Exam: Chest pain Patient Location: E HR:82 bpm ECG Measurements Heart Rate 82 AXIS SD 135 P 75 QRSd 64 QRS 78 QT 346 T 46 QTc 404 Conclusion Sinus rhythm...normal P axis, V-rate 60- 99 Probable left atrial enlargement...P >50mS, <-0.10mV V1
[2024-07-06 16:35] VITALS: BP 116/84; PULSE 83; RESP 14; TEMP 36.4; O2SAT 97
--- NOTE | 2024-07-06 16:51 | W.ED.GENAD ---
Discharge Plan Disposition Patient Disposition: Home Condition: Stable Discharge Details Clinical Impression: Chest pain of uncertain etiology Primary Care Provider: Anila Ruiz ED Provider: Rene Osman Home Meds and New Rx's Prescriptions: Continued prednisone 20 mg tablet 40 mg PO DAILY Qty: 10 0RF Rx Instructions: take in the morning with food. take 2 pills daily x 5 days albuterol sulfate [ProAir HFA] 200 PUFF HFA aerosol inhaler 2 puff Inhalation PRN PRN Discharge Instructions Instructions: Raynaud phenomenon, Thoracic Outlet Syndrome, Chest Pain, Adult ED Additional Instructions: You were seen in the emergency department for the chest and left arm pain of unknown cause. Your CT angiograms of the chest and left upper extremity are completely normal. Your cardiac labs are completely normal, there is no blood clot in your lungs, you may have neurologic thoracic outlet syndrome from pinched nerve or Raynaud's phenomenon of the hand occasionally. You may try to follow-up with orthopedics to diagnose this condition, please return to the emergency department for any prolonged skin changes and numbness and pain in the hand. Try rubbing the [id number] Voltaren gel a topical anti-inflammatory on the areas of pain to your chest see if this relieves possible muscle inflammation between the ribs. Referrals: Anila Ruiz [Primary Care Provider] - Discharge Data Discharge Date/Time-TO BE ENTERED AT DEPARTURE: 07/06/24 18:59 HPI General Date/Time Provider Initiated Documentation: 07/06/24 16:51. HPI Narrative: 24 year-old female presents to ED today by POV/ambulating with a chief complaint of L chest pain, sharp and pleuritic- has had costochondritis before, and reporting intermittent L arm numbness, pain, temperature changes, and her L arm turning purple- UC sent over for thoracic outlet workup with onset intermittently. Quality described as arm becomes purple and painful to move, weak, cold- denies bilateral symptoms, no radiation to hormonal OCP use, palpitations, shortness of breath, dizziness, sweating, midline neck pain. Severity is described as severe sometimes. Palliating factors include nothing specific attempted. Provoking factors include nothing specific. Patient not anticoagulated. Related Data Home Medications ?Medication ?Instructions ?Recorded ?Confirmed albuterol sulfate 90 mcg/actuation 2 puff inhalation PRN PRN 05/19/17 07/06/24 aerosol inhaler (ProAir HFA) prednisone 20 mg tablet 40 mg (2 x 20 mg) PO DAILY #10 tabs 06/03/24 07/06/24 Previous Rx's ?Medication ?Instructions ?Recorded prednisone 20 mg tablet 40 mg (2 x 20 mg) PO DAILY #10 tabs 06/03/24 Allergies Allergy/AdvReac Type Severity Reaction Status Date / Time amoxicillin AdvReac Intermediate vomiting Verified 07/06/24 16:41 doxycycline AdvReac Intermediate vomiting Verified 07/06/24 16:41 General Stated Complaint: Chest Pain SIS: 3 Review of Systems All systems reviewed & are unremarkable except as noted in HPI and below Exam Narrative Exam Narrative: GENERAL APPEARANCE: Well-nourished, non-toxic, awake and alert, atraumatic, no acute distress. SKIN: Warm, pink, dry, intact, without rashes/lesions/ulcerations. HEAD: Normocephalic, atraumatic, normal hair distribution for gender/age. EYES: Normal conjunctiva, no exudates on lids/lashes. ENT: Nares patent, no circumoral cyanosis, no facial swelling NECK: Supple, trachea midline, painless cervical ROM. LUNGS/CHEST: Lungs CTA bilaterally-no rhonchi/rales/wheezes diffusely, non-labored respirations, normal A/P diameter, symmetrical expansion, no chest wall deformity, pleuritic left chest pain without crepitus HEART (CV/PV): Regular rate and rhythm without murmur, no peripheral edema, no JVD. ABDOMEN: Soft, non-distended, no guarding. MSK: Normal ROM, no swelling/deformity to bilateral UEs or LEs, moving all extremities without weakness, no cyanosis, spine midline without tenderness, normal curvature, Adson test negative left upper extremity, full range of motion, sensation intact, no skin changes, no sign of trauma NEURO: Mental Status AAOx4 - alert to person, place, time, events No facial droop, no forehead involvement. Motor: No focal weakness - strength 5/5 in bilateral UEs and LEs, proximal and distal, symmetric. Sensory: sensation intact to light touch globally. Gait normal: patient ambulated without ataxia into ED room. PSYCH: euthymic, cooperative, pleasant, appropriate speech Course Vital Signs Vital signs: Vital Signs Temperature 36.4 C 07/06/24 16:35 Pulse 83 07/06/24 16:35 Respiratory Rate 14 07/06/24 16:35 Blood Pressure 116/84 07/06/24 16:35 Pulse Oximetry 97 07/06/24 16:35 Temperature 36.4 C 07/06/24 16:35 Pulse 83 07/06/24 16:35 Respiratory Rate 14 07/06/24 16:35 Respiratory Effort Normal, Non-Labored 07/06/24 16:41 Blood Pressure 116/84 07/06/24 16:35 Blood Pressure Position Sitting 07/06/24 16:35 Pulse Oximetry 97 07/06/24 16:35 Oxygen Delivery Method Room Air 07/06/24 16:35 Oxygen Flow Rate 0 07/06/24 16:35 Medical Decision Making This dictation utilizes [id number] dictation software and may contain unedited grammatical errors. 24 year-old female presents to ED today by POV/ambulating with a chief complaint of L chest pain, sharp and pleuritic- has had costochondritis before, and reporting intermittent L arm numbness, pain, temperature changes, and her L arm turning purple- UC sent over for thoracic outlet workup with onset intermittently. Quality described as arm becomes purple and painful to move, weak, cold- denies bilateral symptoms, no radiation to hormonal OCP use, palpitations, shortness of breath, dizziness, sweating, midline neck pain. Severity is described as severe sometimes. Palliating factors include nothing specific attempted. Provoking factors include nothing specific. Patients' medical history: GERD, chronic abdominal pain, chronic nausea, sciatica, bone spurs, anxiety. Family and social history: Noncontributory. Pertinent exam findings / vital signs include pleuritic chest pain, full range of motion in left arm, no numbness, left radial pulse 2+, Adson's test negative, benign cardiopulmonary exam, neuro intact, nontoxic vitals, no midline neck tenderness. Differential / pathologies of concern include thoracic outlet syndrome-vascular or neurologic, costochondritis, cervical radiculopathy, Raynaud's phenomenon. Diagnostic studies of: -CTA of the chest and left arm, CBC, CMP, serial troponins, EKG. -CT of the chest and left arm showed no findings -Laboratory workup benign with negative serial troponins and no actionable abnormalities on CMP, no sign of leukocytosis -EKG no S1Q3T3, no ischemic changes, NSR without ectopy Interventions of: -Recommend Voltaren gel for her pleuritic chest pain, recommend follow-up with orthopedics for more definitive workup for her intermittent possible thoracic outlet syndrome. ED Course/Assessment/Plan: 24-year-old otherwise healthy female presents with intermittent changes in temperature, pain, strength, sensation to her left arm-workup for thoracic outlet syndrome at this time shows no vascular cause she has no midline neck tenderness to indicate cervical radiculopathy, her pleuritic left chest pain is likely costochondritis, her cardiac workup is negative and there was no PE on CTA, I counseled her on following up with orthopedics for intermittent thoracic outlet syndrome versus Raynaud's phenomenon, strict return criteria for signs of neurovascular compromise to the left upper extremity or worsening chest pain. Findings not consistent with ACS, PE, vascular anomaly of left upper extremity or chest, neurovascular compromise of left arm. Disposition of Chest Pain of Uncertain Etiology. Patient verbalized understanding of the plan and return to ED criteria and engaged in shared decision making. Medical Records Medical records reviewed: Yes I reviewed the patient's medical records. Imaging Data Radiologic Study: Attestation: I personally reviewed and interpreted this imaging study as follows: Imaging: CT Scan Radiologist's impression: EXAM: CT CHEST PE CTA CLINICAL HISTORY: concern sub clav pathology vs PE- L arm skin zazueta. TECHNIQUE: Imaging Protocol: Axial CT angiography of the chest and left arm were performed with multi-slice acquisition and multi-planar reconstructions as well as axial, coronal and sagittal MIP reconstructions. Computer aided detection (CAD) was utilized. CONTRAST MATERIAL: Intravenous: Omnipaque 350 Contrast volume:160 ml COMPARISON: CR XR WRIST LT COMPLETE from 07/11/2021 CR XR CHEST 2V PA LATERAL from 04/16/[address] UPPER EXTREMITY LT CTA from 07/06/2024 FINDINGS: Pulmonary Arteries: No evidence of filling defect to suggest pulmonary emboli. Mediastinum and Radha: No dominant adenopathy or fluid collection. Pulmonary parenchyma: No consolidation or dominant measurable mass. Pleura: No effusion or pneumothorax. Heart: The heart is not dilated. No coronary artery calcifications are seen. Aorta: Thoracic aorta non-dilated. No dissection. Upper abdomen: No acute findings. Bones: Unremarkable for age. Tubes, Catheters, and Lines: None Soft tissues: Unremarkable. The subclavian artery and vein are patent. The arteries in the arm are patent throughout to the level of the wrist. Distally in the finger the vessels are not well opacified and too diminutive to characterize. IMPRESSION: No evidence of pulmonary embolism or other acute abnormality in the chest. Patent left subclavian artery and veins. Patent arterial supply to the left arm. Lab Data Lab results reviewed: Yes I reviewed the patient's lab results. Labs: Laboratory Tests Range/Units 07/06/24 07/06/24 17:17 18:06 WBC (4.4-10.8) 10^3/uL 5.05 RBC (3.93-5.22) 10^6/uL 4.65 Hgb (11.2-15.7) g/dL 14.1 Hct (36.0-46.0) % 41.3 MCV (80-95) fL 89 MCH (27.0-33.0) pg 30.3 MCHC (32.0-36.0) % 34.1 RDW (11.7-14.6) % 12.9 Plt Count (130-400) 10^3/uL 326 MPV (8.0-11.0) fL 10.4 Immature Gran % % 0.2 Neutrophils % % 58.3 Lymphocytes % % 32.5 Monocytes % % 5.0 Eosinophils % % 3.0 Basophils % % 1.0 Nucleated RBC % (0.0-0.3) % 0.0 Absolute Neutrophils (1.2-6.7) 10^3/uL 2.95 Absolute Lymphocytes (1.2-3.4) 10^3/uL 1.64 Absolute Monocytes (0.1-0.8) 10^3/uL 0.25 Absolute Eosinophils (0.0-0.7) 10^3/uL 0.15 Absolute Basophils (0.0-0.2) 10^3/uL 0.05 Sodium (136-145) mmol/L 142 Potassium (3.5-5.1) mmol/L 3.9 Chloride (98-107) mmol/L 107 Carbon Dioxide (21.0-32.0) mmol/L 27.1 Anion Gap (3-11) mmol/L 7.9 BUN (7-18) mg/dL 15 Creatinine (0.55-1.02) mg/dL 0.8 Est GFR (CKD-EPI 2020) (mL/min/1.73m2) 106.11 Glucose (74-106) mg/dL 85 Calcium (8.5-10.1) mg/dL 9.6 Total Bilirubin (0.2-1.0) mg/dL 0.59 AST (15-37) U/L 12 L ALT (14-59) U/L 23 Alkaline Phosphatase (46-116) U/L 58 Troponin I (<or=51) ng/L 5 6 Total Protein (6.4-8.2) g/dL 7.6 Albumin (3.4-5.0) g/dL 4.5 Quality:SDOH Health Related Social Needs: No Data to Display PFSH All Active Problems (Updated 07/06/24 @ 18:44 by DARIEL Chatman) Chest pain of uncertain etiology (Acute) Miscarriage (Acute) Smoker (Acute) Painful orthopaedic hardware (Acute) S/P medial patellofemoral ligament reconstruction (Acute) Dysmenorrhea (Acute) Encounter for screening examination for sexually transmitted disease (Acute) Irregular menstrual cycle (Acute) Anorexia nervosa, binge-eating purging type, extreme (Acute) Bipolar 1 disorder (Acute) Anxiety (Chronic) Depression (Chronic) Asthma (Chronic) Medical History Miscarried within last 12 months IUD surveillance (06/26/22) jada Patient desires Oligomenorrhea Migraine Esophagitis Contusion of left wrist GERD (gastroesophageal reflux disease) Chronic abdominal pain Chronic nausea Contraception 2018. Nexplanon. 2019. Discontinued out of concern it may interfere with psych meds. 2019. DepoProvera. Irreg bleeding. 2020. Nexplanon reinserted. 03/2021. Nexplanon removed 2/2 irreg menses. Rx for NuvaRing. 05/23/21. NuvaRing kept falling out. Xulane patch. Lumbago of lumbar region with sciatica Patellofemoral disorders, left knee Bone spur of other site Left knee, superior medial patella Surgical History History of esophagogastroduodenoscopy (EGD) (~05/2021) Hx of arthroscopic knee surgery Tonsillectomy and adenoidectomy age 10 Family History (Updated 03/25/24 @ 14:49 by Jia Alcantara NP) Maternal Aunt MTHFR mutation Maternal Cousin MTHFR mutation Other Cancer Diabetes Social History Smoking/Tobacco Use Status: Current every day Tobacco Type: e-cigarettes Smoking risk assessment performed?: Yes Alcohol Intake: current Alcohol Intake frequency: holidays/special occasions only Alcohol type: hard liquor Drug use: Never Substance use type: does not use Household members: other Details: [facility], [place] Housing: house Number of Children: 0 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 Do you feel safe at home: Yes Do you feel safe in your relationship?: Yes Female Reproductive History Menstrual control method: none History History 2 Para 0 Hx # Term Pregnancies Multiple births Hx # Pregnancies Ectopic pregnancies AB induced Hx Number of Living Children AB spontaneous 2 PAWSS Have you Been Recently Intoxicated or Drunk Within the Last 30 days?: Yes Have you Ever Experienced Previous Episodes of Alcohol Withdrawal?: No Have you ever Experienced Withdrawal Seizures?: No Have you ever Experienced Delirium Tremens(DT)s?: No Have you ever undergone Alcohol Rehabilitation Treatment (i.e, inpt ot outpatient treatment programs)?: No Have you ever Experienced Blackouts?: No Have you ever Combined Alcohol with other Downers within the last 90 days?: Yes Have you ever Combined Alcohol with any other Substance of Abuse during the last 90 days?: Yes Positive Blood Alcohol level on Presentation? [PCS.BAL]: Unable to Obtain Evidence of Increased Autonomic Activity (i.e. HR>120, tremor, sweating, agitation, nausea)?: No Result: 3
[2024-07-06 17:26] LABS: Abs Immature Grans 0.01 10^3/uL (0.0-0.06); Absolute Basophil Count 0.05 10^3/uL (0.0-0.2); Absolute Eosinophil Count 0.15 10^3/uL (0.0-0.7); Absolute Lymphocyte Count 1.64 10^3/uL (1.2-3.4); Absolute Monocyte Count 0.25 10^3/uL (0.1-0.8); Absolute Neutrophil Count 2.95 10^3/uL (1.2-6.7); HCT 41.3 % (36.0-46.0); HGB 14.1 g/dL (11.2-15.7); Immature Grans % 0.2 %; Lymphocytes % 32.5 %; MCH 30.3 pg (27.0-33.0); MCHC 34.1 % (32.0-36.0); MCV 89 fL (80-95); MPV 10.4 fL (8.0-11.0); Neutrophils % 58.3 %; Platelet Count 326 10^3/uL (130-400); RBC 4.65 10^6/uL (3.93-5.22); RDW 12.9 % (11.7-14.6); RDW-SD 42.2 fL; WBC 5.05 10^3/uL (4.4-10.8)
[2024-07-06 17:59] LABS: ALT 23 U/L (14-59); AST 12 U/L (15-37); Albumin 4.5 g/dL (3.4-5.0); Alkaline Phosphatase 58 U/L (46-116); Anion Gap 7.9 mmol/L (3-11); BUN 15 mg/dL (7-18); Bilirubin, Total 0.59 mg/dL (0.2-1.0); CO2 27.1 mmol/L (21.0-32.0); CREATININE 0.8 mg/dL (0.55-1.02); Calcium 9.6 mg/dL (8.5-10.1); Chloride 107 mmol/L (98-107); Estimated GFR 106.11 (mL/min/1.73m2); Glucose 85 mg/dL (74-106); Potassium 3.9 mmol/L (3.5-5.1); Sodium 142 mmol/L (136-145); Total Protein 7.6 g/dL (6.4-8.2); Troponin I 5 ng/L (<or=51)
[2024-07-06] MEDS: Omnipaque 350 MG/ML 100 ML BTL IJ ×2 (18:09→18:12)
[2024-07-06] MEDS: Normal Saline - Diluent 50 ML VIAL IJ ×2 (18:10→18:12)
--- NOTE | 2024-07-06 18:29 | DI.CT_ITS ---
Exam(s) CT CHEST PE CTA CT UPPER EXTREMITY LT CTA EXAM: CT CHEST PE CTA CLINICAL HISTORY: concern sub clav pathology vs PE- L arm skin zazueta. TECHNIQUE: Imaging Protocol: Axial CT angiography of the chest and left arm were performed with mul ti-slice acquisition and multi-planar reconstructions as well as axial, coronal and sagittal MIP leena nstructions. Computer aided detection (CAD) was utilized. CONTRAST MATERIAL: Intravenous: Omnipaque 350 Contrast volume:160 ml COMPARISON: CR XR WRIST LT COMPLETE from 07/11/2021 CR XR CHEST 2V PA LATERAL from 04/16/[address] UPPER EXTREMITY LT CTA from 07/06/2024 FINDINGS: Pulmonary Arteries: No evidence of filling defect to suggest pulmonary emboli. Mediastinum and Radha: No dominant adenopathy or fluid collection. Pulmonary parenchyma: No consolidation or dominant measurable mass. Pleura: No effusion or pneumothorax. Heart: The heart is not dilated. No coronary artery calcifications are seen. Aorta: Thoracic aorta non-dilated. No dissection. Upper abdomen: No acute findings. Bones: Unremarkable for age. Tubes, Catheters, and Lines: None Soft tissues: Unremarkable. The subclavian artery and vein are patent. The arteries in the arm are patent throughout to the leve l of the wrist. Distally in the finger the vessels are not well opacified and too diminutive to joao acterize. IMPRESSION: No evidence of pulmonary embolism or other acute abnormality in the chest. Patent left subclavian artery and veins. Patent arterial supply to the left arm. RADIATION DOSE DELIVERED: Total DLP DATA REPOSITORY: All CT scans at this facility are submitted to the National Radiology Data Registry (NRDR) Dose Index Registry (DIR) with the [employer] (ACR). RADIATION OPTIMIZATION: All CT scans at this facility use at least one of these dose optimization te chniques: automated exposure control; mA and/or kV adjustment per patient size (includes targeted exa ms where dose is matched to clinical indication); or iterative reconstruction.
[2024-07-06 18:30] LABS: Troponin I 6 ng/L (<or=51)
[2024-07-06 18:59] VITALS: BP 122/70; PULSE 72; RESP 16; O2SAT 99
== END 2024-07-06 18:59 | disposition home or self-care (01) ==
PROVIDERS: Emergency Provider Physician Assistant; PCP Nurse Practitioner Family
DX: R07.9 Chest pain, unspecified (principal)
CPT/HCPCS: 71275; 73206; 80053; 81025; 93005; 99285; 84484; 85025; 93010; 99284; J3490

== ENCOUNTER 2024-12-25 17:49 | Emergency (ER) | payer MEDICAID, SELFPAY ==
[2024-12-25 17:52] VITALS: BP 115/74; PULSE 89; RESP 12; TEMP 36.7; O2SAT 98
--- NOTE | 2024-12-25 18:27 | ED.GENADUL_ITS ---
Discharge Plan Disposition Patient Disposition: Home Condition: Improving Discharge Details Chief Complaint: Nausea/Vomit/Diar Clinical Impression: Vomiting, Hypomagnesemia, Primary Care Provider: Anila Ruiz ED Provider: Alecia Del Angel Home Meds and New Rx's Prescriptions: No Action No Known Home Meds Discharge Instructions Instructions: Low Magnesium Level, Taking in Enough Fluids While You Are , Nausea and vomiting in adults Referrals: Anila Ruiz [Primary Care Provider] - Return if symptoms worsen Discharge Data Discharge Physician: Alecia Del Angel [facility] General Date/Time Provider Initiated Documentation: 12/25/24 17:57 . HPI Narrative: 24-year-old 20-week female presents for evaluation of vomiting. She has not had any difficulty with vomiting during this . She has had intractable vomiting throughout the day today. She has discomfort in her abdomen with no vomiting. Denies any diarrhea or constipation. She has had decreased urination today secondary to being dehydrated. No fevers or chills. No cough or cold. No chest pain or shortness of breath. 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 She states that she has not felt the baby move today however she does not consistently feel the baby move. She has had an ultrasound during this which showed IUP. No vaginal discharge or bleeding. Patient states that she feels cold all the time. Today she had an episode where her hands appeared to turn purple/blue. Has not resolved on its own. Related Data Home Medications ?Medication ?Instructions ?Recorded ?Confirmed Unknown [No Known Home Meds] 12/25/24 12/25/24 Allergies Allergy/AdvReac Type Severity Reaction Status Date / Time amoxicillin AdvReac Intermediate vomiting Verified 12/25/24 17:57 doxycycline AdvReac Intermediate vomiting Verified 12/25/24 17:57 General Stated Complaint: Nausea/Vomit/Diar SIS: 3 Review of Systems Narrative: Remainder of review of systems otherwise negative except for as noted in the HPI x 10. Exam Narrative Exam Narrative: General: non-toxic, no respiratory distress, comfortable HEENT: normocephalic, atraumatic, lids and lashes normal, PERRL, EOMI, anicteric sclera, no conjunctival injection, moist oral mucosa Card: regular rate and rhythm, S1S2, no murmurs, rubs, or gallops Lungs: good air entry, clear to auscultation bilaterally. no wheezes, rales, rhonchi, or retractions Abd: soft, non-tender, non-distended, normal bowel sounds, no rebound or guarding, no peritoneal signs, no CVAT Musculoskeletal: full range of motion of arms and legs, no tenderness to palpation. no clubbing, cyanosis, or edema Neurologic: appropriate for age, strength normal Psych: alert and oriented Skin: no petechiae, no lesions, warm and dry Course Vital Signs Vital signs: Vital Signs Temperature 36.7 C 12/25/24 17:52 Pulse 89 12/25/24 17:52 Respiratory Rate 12 12/25/24 17:52 Blood Pressure 115/74 12/25/24 17:52 Pulse Oximetry 98 12/25/24 17:52 Temperature 36.7 C 12/25/24 17:52 Temperature Source Oral 12/25/24 17:52 Pulse 89 12/25/24 17:52 Respiratory Rate 12 12/25/24 17:52 Blood Pressure 115/74 12/25/24 17:52 Blood Pressure Position Sitting 12/25/24 17:52 Pulse Oximetry 98 12/25/24 17:52 Oxygen Delivery Method Room Air 12/25/24 17:52 Oxygen Flow Rate 0 12/25/24 17:52 Medical Decision Making 24-year-old female presents for evaluation of intractable vomiting and probable dehydration. IV fluids ordered. heart rate 138. Laboratory studies show low magnesium. IV magnesium replacement ordered. Otherwise no electrolyte abnormality. Patient's symptoms improved with the ED medication. She was able to tolerate p.o. She states that she already picked up a prescription for Zofran. Discharged home at this time. She is encouraged to continue fluid intake. She understands indications for Quality:SDOH Health Related Social Needs: No Data to Display PFSH All Active Problems (Updated 12/25/24 @ 19:06 by Alecia Del Angel MD) (Acute) Hypomagnesemia (Acute) Vomiting (Acute) Miscarriage (Acute) Smoker (Acute) Painful orthopaedic hardware (Acute) S/P medial patellofemoral ligament reconstruction (Acute) Dysmenorrhea (Acute) Encounter for screening examination for sexually transmitted disease (Acute) Irregular menstrual cycle (Acute) Anorexia nervosa, binge-eating purging type, extreme (Acute) Bipolar 1 disorder (Acute) Anxiety (Chronic) Depression (Chronic) Asthma (Chronic) Medical History Miscarried within last 12 months IUD surveillance (06/26/22) jada Patient desires Oligomenorrhea Migraine Esophagitis Contusion of left wrist GERD (gastroesophageal reflux disease) Chronic abdominal pain Chronic nausea Contraception 2018. Nexplanon. 2019. Discontinued out of concern it may interfere with psych meds. 2019. DepoProvera. Irreg bleeding. 2019. Nexplanon reinserted. 03/2021. Nexplanon removed 2/2 irreg menses. Rx for NuvaRing. 05/23/21. NuvaRing kept falling out. Xulane patch. Lumbago of lumbar region with sciatica Patellofemoral disorders, left knee Bone spur of other site Left knee, superior medial patella Surgical History History of esophagogastroduodenoscopy (EGD) (~05/2021) Hx of arthroscopic knee surgery Tonsillectomy and adenoidectomy age 10 Family History Maternal Aunt MTHFR mutation Maternal Cousin MTHFR mutation Other Cancer Diabetes Social History Smoking/Tobacco Use Status: Current every day Tobacco Type: e-cigarettes Smoking risk assessment performed?: Yes Alcohol Intake: former Drug use: Never Substance use type: does not use Household members: other Details: [facility] Housing: house Number of Children: 0 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
[2024-12-25] MEDS: Ondansetron 4 MG/2 ML VIAL IVP (18:33)
[2024-12-25] MEDS: Normal Saline 1,000 ML 1000 ML IV (18:33)
[2024-12-25 18:41] LABS: Abs Immature Grans 0.04 10^3/uL (0.0-0.06); Absolute Basophil Count 0.04 10^3/uL (0.0-0.2); Absolute Eosinophil Count 0.37 10^3/uL (0.0-0.7); Absolute Lymphocyte Count 1.23 10^3/uL (1.2-3.4); Absolute Monocyte Count 0.38 10^3/uL (0.1-0.8); Absolute Neutrophil Count 6.48 10^3/uL (1.2-6.7); Basophils % 0.5 %; Eosinophils % 4.3 %; HGB 10.2 g/dL (11.2-15.7); Immature Grans % 0.5 %; Lymphocytes % 14.4 %; MCH 29.8 pg (27.0-33.0); MCV 88 fL (80-95); Monocytes % 4.4 %; Neutrophils % 75.9 %; Platelet Count 227 10^3/uL (130-400); RBC 3.42 10^6/uL (3.93-5.22); RDW 13.3 % (11.7-14.6); RDW-SD 42.5 fL; WBC 8.54 10^3/uL (4.4-10.8)
[2024-12-25 18:57] LABS: ALT 24 U/L (14-59); AST 13 U/L (15-37); Alkaline Phosphatase 54 U/L (46-116); Anion Gap 8.9 mmol/L (3-11); BUN 10 mg/dL (7-18); Bilirubin, Total 0.1 mg/dL (0.2-1.0); CO2 25.1 mmol/L (21.0-32.0); CREATININE 0.6 mg/dL (0.55-1.02); Calcium 8.9 mg/dL (8.5-10.1); Chloride 105 mmol/L (98-107); Estimated GFR 129.27 (mL/min/1.73m2); Glucose 93 mg/dL (74-106); Magnesium 1.5 mg/dL (1.8-2.4); Potassium 3.6 mmol/L (3.5-5.1); Sodium 139 mmol/L (136-145)
[2024-12-25 19:16] LABS: COVID-19 PCR Negative (Negative); Influenza A PCR Negative (Negative); Influenza B PCR Negative (Negative); RSV PCR Negative (Negative)
[2024-12-25 19:18] LABS: Source Nasopharynx
[2024-12-25] MEDS: MAGNESIUM SULFATE 2 GM/50 ML BAG IV_INF (19:27)
[2024-12-25 19:29] LABS: Bilirubin Negative (Negative); Blood Negative (Negative); Clarity Clear (Clear); Glucose Negative (Negative); Ketones Negative (Negative); Leukocyte Esterase Negative (Negative); Nitrite Negative (Negative); Specific Gravity >= 1.030 (1.005-1.025); Urobilinogen 0.2 mg/dL (Up to 0.2); pH 5.5 (5-8)
[2024-12-25 21:00] VITALS: BP 106/56; PULSE 87; RESP 20; TEMP 36.8; O2SAT 99
== END 2024-12-25 21:01 | disposition home or self-care (01) ==
PROVIDERS: Emergency Provider Emergency Medicine Emergency Medical Services; PCP Nurse Practitioner Family
DX: O21.1 Hyperemesis gravidarum with metabolic disturbance (principal); Z3A.20 20 weeks gestation of pregnancy; E83.42 Hypomagnesemia
CPT/HCPCS: 99284 ×2; 36415; 96375; 80053; 87637; 96361; 96365; 81003; 83735; 85025; J2405; J3475

== ENCOUNTER 2025-01-16 12:53 | Emergency (ER) | payer MEDICAID, SELFPAY ==
[2025-01-16] VITALS (13 sets, daily range): BP systolic 103; BP diastolic 70; PULSE 84–125; RESP 11–24; TEMP 36.9; O2SAT 98–100
--- NOTE | 2025-01-16 13:00 | RT.EKG_ITS ---
APPROVED REPORT Exam: Resting ECG Reason for Exam: Chest pain Patient Location: E HR:98 bpm ECG Measurements Heart Rate 98 AXIS KS 120 P 67 QRSd 66 QRS 70 QT 332 T 29 QTc 424 Conclusion Sinus rhythm...normal P axis, V-rate 60- 99 No Occlusion CO
--- NOTE | 2025-01-16 13:41 | ED.GENADUL_ITS ---
Discharge Plan Disposition Patient Disposition: Home Condition: Stable Discharge Details Clinical Impression: Chest pain during , Hypomagnesemia Primary Care Provider: Anila Ruiz ED Provider: Bindu Mckeon Home Meds and New Rx's Prescriptions: Continued nicotine 21 mg/24 hr patch 24 hour 1 patch transdermal DAILY PRN Patient Comments: APPLY 1 PATCH TRANSDERMALLY AND CHANGE EVERY DAY albuterol sulfate [Ventolin HFA] 90 mcg/actuation HFA aerosol inhaler 2 puff INHALATION Q4H PRN Patient Comments: INHALE 2 PUFFS BY MOUTH EVERY 4 HOURS FOR 6 HOURS NEEDED FOR COUGHING ondansetron 4 mg tablet,disintegrating 4 mg translingual Q4H PRN Patient Comments: DISSOLVE ONE TABLET ON THE TONGUE EVERY 4 HOURS NEEDED FOR NAUSEA AND VOMITING Discharge Instructions Instructions: Chest Pain, Adult ED, Hypomagnesemia Additional Instructions: At this time your magnesium level is low. You were given a supplement here in the emergency department today. Please increase foods with high magnesium levels. You may also take a vitamin daily if not already doing so. At this time no evidence for pneumonia, no evidence for heart problems. I do suspect that this is musculoskeletal in nature he might have some nerve type pain that is what is radiating down your arm. You may apply topical [id number] remedies such as IcyHot or similar or Biofreeze. May also take Tylenol this is generally regarded as safe in . Follow up with [facility] [facility]/primary care provider in 5-7 days. Return to ED sooner if any worsening or concerns. Referrals: Anila Ruiz [Primary Care Provider] - 5 days HPI General Mode of arrival: ambulatory . Date/Time Provider Initiated Documentation: 01/16/25 13:00 . Limitations to Documentation: no limitations . Information obtained by: patient, RN notes reviewed and old records reviewed . HPI Narrative: 24-year-old female presents to the ER with a chief complaint of left-sided chest pain which radiates down her left arm, it is reproducible with palpation. She is approximately 24 weeks . A0. She reports nonproductive cough, denies any fever or recent injuries. She does have a history of asthma. She has had this before approximately a year ago and had complete workup with no positive findings. She did not take any medications. She reports that she woke up and then began with this pain. Related Data Home Medications ?Medication ?Instructions ?Recorded ?Confirmed albuterol sulfate 90 mcg/actuation 2 puff inhalation Q4H PRN 01/16/25 01/16/25 aerosol inhaler (Ventolin HFA) nicotine 21 mg/24 hr daily 1 patch transdermal DAILY PRN 01/16/25 01/16/25 transdermal patch ondansetron 4 mg disintegrating 4 mg translingual Q4H PRN 01/16/25 01/16/25 tablet Allergies Allergy/AdvReac Type Severity Reaction Status Date / Time amoxicillin AdvReac Intermediate vomiting Verified 01/16/25 13:16 doxycycline AdvReac Intermediate vomiting Verified 01/16/25 13:16 General Stated Complaint: Chest Pain SIS: 3 Review of Systems All systems reviewed & are unremarkable except as noted in HPI and below Cardiovascular Cardiovascular: Reports chest pain, Denies claudication, Denies leg edema and Reports radiating jaw, neck or arm pain Exam Narrative Exam Narrative: Constitutional: Alert and oriented x3. Appears stated age. Normal body habitus. Head: Normocephalic, no trauma. Eyes: Pupils PERRL, Red reflex noted, EOM's intact. Eyelids symmetrical without lesions, discharge, or swelling. ENT: Bilateral TM's WNL, External ear normal to inspection, no mastoid TTP, swelling, or erythema, Nasal turbinates WNL, no nasal discharge. Normal dentition, Posterior pharynx WNL, no exudate. Chest: RRR, Normal S1, S2, distal pulses intact. Resp: Lungs clear to auscultation bilaterally, no wheezes, rales, or rhonchi. Abdomen: Soft, non-distended, Normoactive bowel sounds all 4 quads. Musculoskeletal: Normal gait, Moves all 4 extremities without difficulty. Skin: No suspicious rashes or lesions. Capillary refill less than 2 sec. Neurologic: Cranial nerves II-XII intact. Alert and oriented x 3. Motor: No deficits noted. Sensory: Intact bilaterally all 4 extremities. Hematologic/Lymphatic: No ecchymosis, no lymphadenopathy. Course Vital Signs Vital signs: Vital Signs Temperature 36.9 C 01/16/25 13:09 Pulse 102 H 01/16/25 13:09 Respiratory Rate 18 01/16/25 13:09 Blood Pressure 103/70 01/16/25 13:09 Pulse Oximetry 98 01/16/25 13:09 Temperature 36.9 C 01/16/25 13:09 Temperature Source Oral 01/16/25 13:09 Pulse 93 H 01/16/25 13:34 Pulse 93 H 01/16/25 13:34 Respiratory Rate 16 01/16/25 13:34 Respiratory Effort Normal, Non-Labored 01/16/25 13:30 Respiratory Depth Normal 01/16/25 13:30 Respiratory Pattern Normal 01/16/25 13:30 Blood Pressure 103/70 01/16/25 13:09 Blood Pressure Position Sitting 01/16/25 13:09 Pulse Oximetry 100 01/16/25 13:34 Oxygen Delivery Method Room Air 01/16/25 13:09 Oxygen Flow Rate 0 01/16/25 13:09 Pain Level 10 01/16/25 13:30 Medical Decision Making 24-year-old female presents to the ER with a chief complaint of left-sided chest pain which radiates down her left arm, it is reproducible with palpation. She is approximately 24 weeks . A0. She reports nonproductive cough, denies any fever or recent injuries. She does have a history of asthma. She has had this before approximately a year ago and had complete workup with no positive findings. She did not take any medications. She reports that she woke up and then began with this pain. Workup ordered including CBC CMP serial troponins, D-dimer chest x-ray. I did discuss the risks of radiation exposure with the chest x-ray with the patient she verbalized understanding. CBC shows no leukocytosis hemoglobin 10.0 hematocrit 29.5, this is consistent with her last lab draw in October, D-dimer 640, sodium potassium within normal limits. Magnesium slightly low at 1.5. Chest x-ray is within normal limits. No acute pulmonary abnormalities. Will give some magnesium p.o. According to the years algorithm patient has no clinical signs of DVT no hemoptysis and PE is not the most likely diagnosis D-dimer is less than at thousand so PE can be excluded. Will have patient follow-up with primary care provider. After replenishing magnesium. This text was generated using [employer] system, please disregard any oddities of phrase or misspellings. Medical Records Medical records reviewed: Yes I reviewed the patient's medical records. Lab Data Lab results reviewed: Yes I reviewed the patient's lab results. Labs: Laboratory Tests Range/Units 01/16/25 01/16/25 01/16/25 14:10 14:39 16:39 WBC (4.4-10.8) 10^3/uL 8.71 RBC (3.93-5.22) 10^6/uL 3.37 L Hgb (11.2-15.7) g/dL 10.0 L Hct (36.0-46.0) % 29.5 L MCV (80-95) fL 88 MCH (27.0-33.0) pg 29.7 MCHC (32.0-36.0) % 33.9 RDW (11.7-14.6) % 13.0 Plt Count (130-400) 10^3/uL 235 MPV (8.0-11.0) fL 10.4 Immature Gran % % 0.3 Neutrophils % % 80.7 Lymphocytes % % 12.9 Monocytes % % 4.1 Eosinophils % % 1.7 Basophils % % 0.3 Nucleated RBC % (0.0-0.3) % 0.0 Absolute Neutrophils (1.2-6.7) 10^3/uL 7.02 H Absolute Lymphocytes (1.2-3.4) 10^3/uL 1.12 L Absolute Monocytes (0.1-0.8) 10^3/uL 0.36 Absolute Eosinophils (0.0-0.7) 10^3/uL 0.15 Absolute Basophils (0.0-0.2) 10^3/uL 0.03 D-Dimer (<500) ng/mlFEU 640 H Sodium (136-145) mmol/L 137 Potassium (3.5-5.1) mmol/L 3.8 Chloride (98-107) mmol/L 106 Carbon Dioxide (21.0-32.0) mmol/L 24.9 Anion Gap (3-11) mmol/L 6.1 BUN (7-18) mg/dL 9 Creatinine (0.55-1.02) mg/dL 0.5 L Est GFR (CKD-EPI 2020) (mL/min/1.73m2) 135.07 Glucose (74-106) mg/dL 85 Calcium (8.5-10.1) mg/dL 8.5 Magnesium (1.8-2.4) mg/dL 1.5 L Total Bilirubin (0.2-1.0) mg/dL 0.2 AST (15-37) U/L 17 ALT (14-59) U/L 30 Alkaline Phosphatase (46-116) U/L 61 Troponin I (<or=51) ng/L < 4 Cancelled Cancelled Total Protein (6.4-8.2) g/dL 5.9 L Albumin (3.4-5.0) g/dL 2.7 L Quality:SDOH Health Related Social Needs: No Data to Display PFSH All Active Problems (Updated 01/16/25 @ 15:04 by Bindu Mckeon NP) Hypomagnesemia (Acute) Chest pain during (Acute) (Acute) Hypomagnesemia (Acute) Vomiting (Acute) Miscarriage (Acute) Smoker (Acute) Painful orthopaedic hardware (Acute) S/P medial patellofemoral ligament reconstruction (Acute) Dysmenorrhea (Acute) Encounter for screening examination for sexually transmitted disease (Acute) Irregular menstrual cycle (Acute) Anorexia nervosa, binge-eating purging type, extreme (Acute) Bipolar 1 disorder (Acute) Anxiety (Chronic) Depression (Chronic) Asthma (Chronic) Medical History Miscarried within last 12 months IUD surveillance (06/26/22) jada Patient desires Oligomenorrhea Migraine Esophagitis Contusion of left wrist GERD (gastroesophageal reflux disease) Chronic abdominal pain Chronic nausea Contraception 2018. Nexplanon. 2019. Discontinued out of concern it may interfere with psych meds. 2019. DepoProvera. Irreg bleeding. 2020. Nexplanon reinserted. 03/2021. Nexplanon removed 2/2 irreg menses. Rx for NuvaRing. 05/23/21. NuvaRing kept falling out. Xulane patch. Lumbago of lumbar region with sciatica Patellofemoral disorders, left knee Bone spur of other site Left knee, superior medial patella Surgical History History of esophagogastroduodenoscopy (EGD) (~05/2021) Hx of arthroscopic knee surgery Tonsillectomy and adenoidectomy age 10 Family History Maternal Aunt MTHFR mutation Maternal Cousin MTHFR mutation Other Cancer Diabetes Social History Smoking/Tobacco Use Status: Current every day Tobacco Type: e-cigarettes Smoking risk assessment performed?: Yes Alcohol Intake: former Drug use: Never Substance use type: does not use Household members: other Details: [facility] Housing: house Number of Children: 0 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
--- NOTE | 2025-01-16 14:02 | DI.RAD_ITS ---
Exam(s) XR PORTABLE CHEST AP EXAM: XR PORTABLE CHEST AP CLINICAL HISTORY: Chest pain TECHNIQUE: 2D digital imaging was performed of the chest. One image was obtained. An AP view was ob tained. COMPARISON: CR XR CHEST 2V PA LATERAL from 04/16/2024 FINDINGS: MEDIASTINUM: Normal. HEART: Normal. PULMONARY VASCULATURE: Normal. LUNGS: Clear. PLEURAL SPACE: No pleural effusion or pneumothorax. BONE:Within normal limits for the patient's age. OTHER FINDINGS:Normal. IMPRESSION: No acute pulmonary findings. DATA REPOSITORY: RADIATION DOSE DELIVERED:
[2025-01-16 14:17] LABS: Abs Immature Grans 0.03 10^3/uL (0.0-0.06); Absolute Basophil Count 0.03 10^3/uL (0.0-0.2); Absolute Eosinophil Count 0.15 10^3/uL (0.0-0.7); Absolute Lymphocyte Count 1.12 10^3/uL (1.2-3.4); Absolute Monocyte Count 0.36 10^3/uL (0.1-0.8); Absolute Neutrophil Count 7.02 10^3/uL (1.2-6.7); Basophils % 0.3 %; Eosinophils % 1.7 %; HCT 29.5 % (36.0-46.0); Immature Grans % 0.3 %; Lymphocytes % 12.9 %; MCH 29.7 pg (27.0-33.0); MCHC 33.9 % (32.0-36.0); MCV 88 fL (80-95); MPV 10.4 fL (8.0-11.0); Monocytes % 4.1 %; Neutrophils % 80.7 %; Platelet Count 235 10^3/uL (130-400); RBC 3.37 10^6/uL (3.93-5.22); RDW-SD 41.1 fL; WBC 8.71 10^3/uL (4.4-10.8)
[2025-01-16 14:36] LABS: ALT 30 U/L (14-59); AST 17 U/L (15-37); Albumin 2.7 g/dL (3.4-5.0); Alkaline Phosphatase 61 U/L (46-116); Anion Gap 6.1 mmol/L (3-11); BUN 9 mg/dL (7-18); Bilirubin, Total 0.2 mg/dL (0.2-1.0); CO2 24.9 mmol/L (21.0-32.0); CREATININE 0.5 mg/dL (0.55-1.02); Calcium 8.5 mg/dL (8.5-10.1); Chloride 106 mmol/L (98-107); Estimated GFR 135.07 (mL/min/1.73m2); Glucose 85 mg/dL (74-106); Magnesium 1.5 mg/dL (1.8-2.4); Potassium 3.8 mmol/L (3.5-5.1); Sodium 137 mmol/L (136-145); Total Protein 5.9 g/dL (6.4-8.2)
[2025-01-16 14:38] LABS: Troponin I < 4 ng/L (<or=51)
[2025-01-16 14:53] LABS: D-Dimer 640 ng/mlFEU (<500)
[2025-01-16] MEDS: Magnesium Oxide 400 MG TAB PO (15:11)
== END 2025-01-16 15:17 | disposition home or self-care (01) ==
PROVIDERS: Emergency Provider Registered Nurse Emergency; PCP Nurse Practitioner Family
DX: O99.891 Other specified diseases and conditions complicating pregnancy (principal); R07.9 Chest pain, unspecified; Z3A.24 24 weeks gestation of pregnancy; E83.42 Hypomagnesemia; R05.1 Acute cough; Z87.09 Personal history of other diseases of the respiratory system; M79.602 Pain in left arm
CPT/HCPCS: 99284 ×2; 36415; 80053; 93005; 71045; 83735; 84484; 85025; 85379; 93010

== ENCOUNTER 2025-02-14 10:41 | Outpatient (CLI) | payer MEDICAID, SELFPAY ==
[2025-02-14 10:51] VITALS: BP 110/70; PULSE 99; RESP 16; TEMP 36.5; O2SAT 100
--- NOTE | 2025-02-14 11:02 | W.ED.GENAD ---
Discharge Plan Disposition Patient Disposition: Admit to [facility] Condition: Serious Discharge Details Clinical Impression: Vaginal bleeding during Primary Care Provider: Anila Ruiz ED Provider: Hannah Gagnon Home Meds and New Rx's Prescriptions: No Action nicotine 21 mg/24 hr patch 24 hour 1 patch transdermal DAILY PRN Patient Comments: APPLY 1 PATCH TRANSDERMALLY AND CHANGE EVERY DAY albuterol sulfate [Ventolin HFA] 90 mcg/actuation HFA aerosol inhaler 2 puff INHALATION Q4H PRN Patient Comments: INHALE 2 PUFFS BY MOUTH EVERY 4 HOURS FOR 6 HOURS NEEDED FOR COUGHING ondansetron 4 mg tablet,disintegrating 4 mg translingual Q4H PRN Patient Comments: DISSOLVE ONE TABLET ON THE TONGUE EVERY 4 HOURS NEEDED FOR NAUSEA AND VOMITING HPI General Date/Time Provider Initiated Documentation: 02/14/25 10:42. HPI Narrative: 24-year-old female with bipolar disorder, 28 weeks , followed by [facility]ICE[facility]AN. This morning, she noticed a vaginal gush of blood upon urination, with no continued bleeding, dizziness, or weakness. Mild intermittent epigastric pain for the past week, no lower abdominal cramping, new back pain, or pelvic pressure. No recent falls, trauma, or injury. Last sexual intercourse a week ago. 3, 2 miscarriages. Related Data Home Medications ?Medication ?Instructions ?Recorded ?Confirmed albuterol sulfate 90 mcg/actuation 2 puff inhalation Q4H PRN 01/16/25 01/16/25 aerosol inhaler (Ventolin HFA) nicotine 21 mg/24 hr daily 1 patch transdermal DAILY PRN 01/16/25 01/16/25 transdermal patch ondansetron 4 mg disintegrating 4 mg translingual Q4H PRN 01/16/25 01/16/25 tablet Allergies Allergy/AdvReac Type Severity Reaction Status Date / Time amoxicillin AdvReac Intermediate vomiting Verified 01/16/25 13:16 doxycycline AdvReac Intermediate vomiting Verified 01/16/25 13:16 General Stated Complaint: POLICEWOMAN SIS: 3 Exam Narrative Exam Narrative: General Appearance: Alert and oriented, in no acute distress. Vital signs: Stable. HEENT: Within normal limits. Respiratory: Within normal limits. Genitourinary: No active bleeding or evidence of impending delivery on genitourinary inspection. Skin: Warm and dry, no rash. Neurological: Normal. Course Vital Signs Vital signs: Vital Signs Temperature 36.5 C 02/14/25 10:51 Pulse 99 H 02/14/25 10:51 Respiratory Rate 16 02/14/25 10:51 Blood Pressure 110/70 02/14/25 10:51 Pulse Oximetry 100 02/14/25 10:51 Temperature 36.5 C 02/14/25 10:51 Temperature Source Oral 02/14/25 10:51 Pulse 99 H 02/14/25 10:51 Respiratory Rate 16 02/14/25 10:51 Blood Pressure 110/70 02/14/25 10:51 Blood Pressure Position Sitting 02/14/25 10:51 Pulse Oximetry 100 02/14/25 10:51 Oxygen Delivery Method Room Air 02/14/25 10:51 Oxygen Flow Rate 0 02/14/25 10:51 Pain Level 6 02/14/25 10:55 Comment epigastric 02/14/25 10:51 Medical Decision Making Initial Assessment: 24-year-old female, 28 weeks , history of bipolar disorder, reported vaginal gush of blood during urination this morning. Mild intermittent epigastric pain for the past week, no lower abdominal cramping, new back pain, or pelvic pressure. No active bleeding or signs of impending delivery on examination. ED Course: - heart rate checked in ED, 140 and constant for 3-5 minutes. - Called Dr. Dominguez for comprehensive POLICEWOMAN examination. Final Assessment: Patient is stable for immediate transfer to OB for thorough examination and assessment by Dr. Dominguez. Clinical Impression: - at 28 weeks' gestation. Disposition: - Transfer: Stable for immediate transfer to OB. MDM Components Evaluation: - Number of Differential Diagnoses or Management Options: None mentioned. - Amount and Complexity of Data Reviewed: heart rate checked, consultation with Dr. Dominguez. - Risk of Complication and Morbidity or Mortality: Moderate risk due to and reported vaginal bleeding. PFSH All Active Problems (Updated 02/14/25 @ 10:58 by DARIEL Escalante) Vaginal bleeding during (Acute) Hypomagnesemia (Acute) Chest pain during (Acute) Miscarriage (Acute) Smoker (Acute) Painful orthopaedic hardware (Acute) S/P medial patellofemoral ligament reconstruction (Acute) Dysmenorrhea (Acute) Encounter for screening examination for sexually transmitted disease (Acute) Irregular menstrual cycle (Acute) Anorexia nervosa, binge-eating purging type, extreme (Acute) Bipolar 1 disorder (Acute) Anxiety (Chronic) Depression (Chronic) Asthma (Chronic) Medical History Miscarried within last 12 months IUD surveillance (06/26/22) jada Patient desires Oligomenorrhea Migraine Esophagitis Contusion of left wrist GERD (gastroesophageal reflux disease) Chronic abdominal pain Chronic nausea Contraception 2018. Nexplanon. 2019. Discontinued out of concern it may interfere with psych meds. 2019. DepoProvera. Irreg bleeding. 2019. Nexplanon reinserted. 03/2021. Nexplanon removed 2/2 irreg menses. Rx for NuvaRing. 05/23/21. NuvaRing kept falling out. Xulane patch. Lumbago of lumbar region with sciatica Patellofemoral disorders, left knee Bone spur of other site Left knee, superior medial patella Surgical History History of esophagogastroduodenoscopy (EGD) (~05/2021) Hx of arthroscopic knee surgery Tonsillectomy and adenoidectomy age 10 Family History Maternal Aunt MTHFR mutation Maternal Cousin MTHFR mutation Other Cancer Diabetes Social History Smoking/Tobacco Use Status: Current every day Tobacco Type: e-cigarettes Smoking risk assessment performed?: Yes Alcohol Intake: former Drug use: Never Substance use type: does not use Household members: other Details: [facility] Housing: house Number of Children: 0 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
[2025-02-14 11:03] VITALS: BP 101/55; PULSE 81; TEMP 36.8
[2025-02-14 11:10] VITALS: BP 101/55; PULSE 81
--- NOTE | 2025-02-14 12:11 | PGE_ITS ---
Date of Service Date of service: 02/14/25 Time of Service: 12:11 Assessment and Plan Assessment and plan (1) Third trimester bleeding: Status: Acute Assessment and plan: Clinical assessment is fully reassuring from an obstetric perspective. I am unable to identify any ready evidence of pathology or evidence of bleeding. Her cervical exam is very reassuring and ultrasound findings are appropriate. Ms. Chang has an Obstetric appointment tomorrow with her current providers; she was encouraged to maintain this appointment. She was counseled on the importance of pelvic rest for at least one week and / or until medically cleared. We discussed avoiding any heavy activity outside of gentle ambulation, today. We discussed concerning symptoms for labor or rupture of membranes and she was advised to have a low threshold for seeking immediate medical evaluation if concerns arise, additional bleeding, and / or if she has any additional concerns that come up. (2) Vulvovaginal candidiasis: Status: Acute Assessment and plan: One time dose of Diflucan sent to pharmacy. Subjective Subjective Interval history since last seen: 24 yo (h/o SAB x2) [facility] 28 01/[facility] US presents to L&D for evaluation of an isolated episode of bleeding. She is accompanied, today, by her mother. Patient states that for the last several days she has been having moderate midepigastric pain (denies nausea / vomiting). She reports getting up this morning to urinate and noting a streak of blood in the toilet. She has not had any bleeding in this up to this point, nor has she had any additional episodes. She denies fevers / chills, nausea / vomiting, chest pain, SOB, dizziness / light-headedness, headaches, changes in vision. She reports good movement and denies any large gushes. She denies contractions. She denies any h/o bleeding / clotting disorders or any surgeries done to the abdomen, pelvis, or cervix. She has a distant h/o Chlamydia (age 19 yo), but reports negative testing in current . She denies any vaginal itching / burning / irritation / discharge / odor. She was not having a BM this morning when the bleeding happened and denies any associated urinary symptoms. She was last sexually active a little over a week ago, and she denies any physical trauma in the last few days. Records suggest Rh+. Exam Narrative Exam Narrative: General: Well nourished female resting comfortably on the gurney; no evidence of distress Respiratory: No overt respiratory distress Abd: Gravid, soft, non-tender Ext: No swelling Affect: Appropriate, cooperative, calm : No evidence of overt hemorrhoids or pathology on external exam. Speculum exam finds no evidence of pooling or blood. Scant discharge suspicious for possible VVC. Cervix appears appropriate. SVE cl/th/high/firm/posterior; no blood on glove. Completed transabdominal exam performed: cephalic presentation, posterior placenta without overt pathology. YE performed twice: 5.71 (MVP 3.1) and 8.38 (MVP 2.5). Frequent movement incidentally appreciated. FHT: Reactive and reassuring [place]: None Objective Last Vital Signs Temp 97.7 F 02/14/25 10:51 Pulse 99 H 02/14/25 10:51 Resp 16 02/14/25 10:51 BP 110/70 02/14/25 10:51 Pulse Ox 100 02/14/25 10:51 Time Spent with Patient Time Spent with Patient: 35-49 minutes Time was spent: preparing to see the patient(eg.review tests), obtaining and/or reviewing separately otained hiistory, ordering medications,tests, procedures, referring, communicating with other health care transition mgr, indepentently interpreting results, counseling the patient and care coordination
[2025-02-14 13:23] LABS: Bilirubin Negative (Negative); Blood Negative (Negative); Clarity Clear (Clear); Glucose Negative (Negative); Ketones Negative (Negative); Leukocyte Esterase Negative (Negative); Nitrite Negative (Negative); Urobilinogen 0.2 mg/dL (Up to 0.2); pH 8.5 (5-8)
== END 2025-02-14 11:04 | disposition home or self-care (01) ==
LOC: ER 10:58 → BCD 11:04
PROVIDERS: Emergency Provider Physician Assistant; PCP Nurse Practitioner Family; Visit Provider Obstetrics & Gynecology
DX: Z3A.28 28 weeks gestation of pregnancy (principal); O99.891 Other specified diseases and conditions complicating pregnancy; N93.9 Abnormal uterine and vaginal bleeding, unspecified
CPT/HCPCS: 99285; 59025; 81003

== ENCOUNTER 2025-03-10 09:06 | Emergency (ER) | payer MEDICAID, SELFPAY ==
[2025-03-10 09:11] VITALS: BP 101/68; PULSE 111; RESP 16; TEMP 36.8; O2SAT 100
--- NOTE | 2025-03-10 09:32 | ED.GENADUL_ITS ---
Discharge Plan Disposition Patient Disposition: Home Condition: Good Discharge Details Clinical Impression: Nausea and vomiting in Primary Care Provider: Anila Ruiz ED Provider: Gisell Peterson Home Meds and New Rx's Prescriptions: New ondansetron 4 mg tablet,disintegrating 4 mg PO Q8H PRN (Reason: nausea and vomiting) Qty: 10 0RF Continued albuterol sulfate [Ventolin HFA] 90 mcg/actuation HFA aerosol inhaler 2 puff INHALATION Q4H PRN Patient Comments: INHALE 2 PUFFS BY MOUTH EVERY 4 HOURS FOR 6 HOURS NEEDED FOR COUGHING ferrous gluconate 324 mg (38 mg iron) tablet 324 mg PO DAILY Patient Comments: TAKE ONE TABLET BY MOUTH EVERY DAY Discharge Instructions Instructions: Hyperemesis gravidarum Additional Instructions: As we discussed, baby's heart rate is excellent, your exam is reassuring and your labs are normal aside from slightly low potassium which was replenished here. Please continue to encourage hydration with frequent sips. Please try vitamin supplementation including B vitamins, john to help with your nausea. You may use the Zofran as prescribed if you have any recurrent significant nausea or vomiting. Please keep your appointment with your BUSINESS OPERATIONS MANAGER. If you develop inability stay hydrated, fever/chills, other new/worsening symptom please seek care urgently once again. Referrals: Anila Ruiz [Primary Care Provider, Medicine] Discharge Data Discharge Date/Time-TO BE ENTERED AT DEPARTURE: 03/10/25 12:29 HPI General Date/Time Provider Initiated Documentation: 03/10/25 09:08 . Limitations to Documentation: no limitations . Information obtained by: patient, RN notes reviewed and old records reviewed . History of Present Illness 24 year old F presents to the emergency department with the chief complaint of nausea and vomiting in setting of , described as moderate and similar to prior episodes, and is localized to the abdomen. Patient started experiencing this day(s) (0300 yesterday) and it has been constant. No relieving factors improve symptom(s), Eating worsens symptoms . Patient notes no other symptoms., loss of appetite, malaise and nausea/vomiting; denies chest pain, cough, fever/chills, shortness of breath, syncope and weakness. Patient did receive the following treatments prior to arrival, none Related Data Home Medications ?Medication ?Instructions ?Recorded ?Confirmed albuterol sulfate 90 mcg/actuation 2 puff inhalation Q 4H PRN 01/16/25 03/10/25 aerosol inhaler (Ventolin HFA) ferrous gluconate 324 mg (38 mg 324 mg PO DAILY 03/10/25 iron) tablet ondansetron 4 mg disintegrating 4 mg PO Q8H PRN nausea and 03/10/25 tablet vomiting #10 tabs Previous Rx's ?Medication ?Instructions ?Recorded ondansetron 4 mg disintegrating 4 mg PO Q8H PRN nausea and 03/10/25 tablet vomiting #10 tabs Allergies Allergy/AdvReac Type Severity Reaction Status Date / Time amoxicillin AdvReac Intermediate vomiting Verified 03/10/25 09:33 doxycycline AdvReac Intermediate vomiting Verified 03/10/25 09:33 General Stated Complaint: Nausea/Vomit/Diar SIS: 3 Review of Systems Constitutional Constitutional: Reports as per HPI, Denies chills, Denies fever(s) and Denies headache(s) ENT Ears, Nose, Mouth, and Throat: Denies headache(s) Cardiovascular Cardiovascular: Reports as per HPI, Denies chest pain and Denies dyspnea Respiratory Respiratory: Reports as per HPI, Denies cough and Denies dyspnea Gastrointestinal Gastrointestinal: Reports as per HPI Musculoskeletal Musculoskeletal: Reports as per HPI and Denies back pain Integumentary/Breasts Skin/Breast: Reports as per HPI and Denies rash Neurologic Neurologic: Reports as per HPI and Denies headache(s) Exam Const General: cooperative, healthy appearing, comfortable, no acute distress and well developed Nutritional Appearance: average body habitus and well nourished Orientation: alert and awake [facility] Head: normal to inspection Resp Effort & Inspection: normal respiratory effort, able to speak in complete sentences and no respiratory distress Auscultation: clear to auscultation bilaterally, no rales, no rhonchi and no wheezes Cardio Rate: regular rate Rhythm: regular rhythm Heart Sounds: S1 normal and S2 normal GI Inspection: normal to inspection (appropriate for gestational age) Palpation: soft, no guarding, no masses, not rigid and nontender Auscultation: normal bowel sounds Skin General skin exam: no rashes or lesions noted Trauma: no lacerations or abrasions Neuro General: patient alert and patient awake Cognition: normal cognition Speech: speech normal Gait: normal gait Course Vital Signs Vital signs: Vital Signs Temperature 36.8 C 07/09/25 09:11 Pulse 111 H 03/10/25 09:11 Respiratory Rate 16 03/10/25 09:11 Blood Pressure 101/68 03/10/25 09:11 Pulse Oximetry 100 03/10/25 09:11 Temperature 36.8 C 03/10/25 09:11 Temperature Source Tympanic 03/10/25 09:11 Pulse 111 H 03/10/25 09:11 Respiratory Rate 16 03/10/25 09:11 Blood Pressure 101/68 03/10/25 09:11 Blood Pressure Position Sitting 03/10/25 09:11 Pulse Oximetry 100 03/10/25 09:11 Oxygen Delivery Method Room Air 03/10/25 09:11 Oxygen Flow Rate 0 03/10/25 09:11 Medical Decision Making Patient is pleasant 24-year-old female, 32 weeks gestation with first child, history of GERD, chronic nausea, presented with chief complaint of nausea x 24 hours. She associates this with going to [facility] for survey and follow- up, then being in a hot car. States that she subsequently developed nausea and has struggled with that since. Reports that she been having trouble staying hydrated since 3 AM yesterday. She denies abdominal pain. No vaginal discharge. Denies any change in movements, states that she continues to be very active. She has not had a fevers or chills. Denies any chest pain or shortness of breath. No recent illness, denies any cough, fevers, chills. Denies any recent sick contacts. Reports that aside from a slow development which is being monitored at [facility], has otherwise been normal. She has been struggling some with nausea intermittently, is prescribed Zofran but has not used this. On exam, patient appears nontoxic. She is slightly tachycardic at 111. She is otherwise hemodynamically stable. Abdomen is nontender. Lungs are clear, normal cardiac exam. She appears slightly dehydrated. heart rate 136, confirmed with Doppler, good movement noted on ultrasound. At this time, no indication to suggest significant infection, no evidence of issues with her fetus, significant hemorrhage. Will hydrate the patient, give Zofran and reassess. Will obtain baseline labs to evaluate for any electrolyte abnormalities. Labs significant for potassium of 3.3, as of the replenished here. Anion gap of 16.3. Glucose is normal. Elevated gap likely associated with ketosis in the setting of decreased oral intake. Patient is now drinking, we will do some further fluids but based on history and exam, I do not feel that further evaluation for this elevated anion gap is warranted given the clinical scenario. Patient taking in fluids orally, feeling improved after hydration, K+ supplement and zofran. She also received Reiki. She feels ready for d/c to home which I feel is appropriate. Her tachycardia is resolving. Discussed supportive care. Encourage hydration. She will keep upcoming OBGYN appointment. Return precautions discussed, all ofher quesitons and concerns were addressed, she is in agreement with this plan. [facility] All Active Problems (Updated 03/10/25 @ 12:07 by DARIEL Morse) Nausea and vomiting in (Acute) Vulvovaginal candidiasis (Acute) Third trimester bleeding (Acute) Vaginal bleeding during (Acute) Miscarriage (Acute) Smoker (Acute) Painful orthopaedic hardware (Acute) S/P medial patellofemoral ligament reconstruction (Acute) Dysmenorrhea (Acute) Encounter for screening examination for sexually transmitted disease (Acute) Irregular menstrual cycle (Acute) Anorexia nervosa, binge-eating purging type, extreme (Acute) Bipolar 1 disorder (Acute) Anxiety (Chronic) Depression (Chronic) Asthma (Chronic) Medical History Miscarried within last 12 months IUD surveillance (06/26/22) jada Patient desires Oligomenorrhea Migraine Esophagitis Contusion of left wrist GERD (gastroesophageal reflux disease) Chronic abdominal pain Chronic nausea Contraception 2018. Nexplanon. 2019. Discontinued out of concern it may interfere with psych meds. 2019. DepoProvera. Irreg bleeding. 2020. Nexplanon reinserted. 03/2021. Nexplanon removed 2/2 irreg menses. Rx for NuvaRing. 05/23/21. NuvaRing kept falling out. Xulane patch. Lumbago of lumbar region with sciatica Patellofemoral disorders, left knee Bone spur of other site Left knee, superior medial patella Surgical History History of esophagogastroduodenoscopy (EGD) (~05/2021) Hx of arthroscopic knee surgery Tonsillectomy and adenoidectomy age 10 Family History Maternal Aunt MTHFR mutation Maternal Cousin MTHFR mutation Other Cancer Diabetes Social History Smoking/Tobacco Use Status: Current every day Tobacco Type: e-cigarettes Smoking risk assessment performed?: Yes Alcohol Intake: former Drug use: Never Substance use type: does not use Household members: other Details: [facility] Housing: house Number of Children: 0 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
[2025-03-10] MEDS: Ondansetron 4 MG/2 ML VIAL IVP (10:01)
[2025-03-10 10:11] LABS: Abs Immature Grans 0.06 10^3/uL (0.0-0.06); HCT 30.3 % (36.0-46.0); HGB 10.2 g/dL (11.2-15.7); Immature Grans % 0.6 %; MCH 29.0 pg (27.0-33.0); MCHC 33.7 % (32.0-36.0); MCV 86 fL (80-95); MPV 11.0 fL (8.0-11.0); Platelet Count 264 10^3/uL (130-400); RBC 3.52 10^6/uL (3.93-5.22); RDW 13.5 % (11.7-14.6); RDW-SD 41.8 fL; WBC 10.62 10^3/uL (4.4-10.8)
[2025-03-10] MEDS: Lactated Ringers 1,000 ML 1000 ML IV (10:20)
[2025-03-10 10:36] LABS: ALT 26 U/L (14-59); AST 17 U/L (15-37); Albumin 3.0 g/dL (3.4-5.0); Alkaline Phosphatase 131 U/L (46-116); Anion Gap 16.3 mmol/L (3-11); BUN 8 mg/dL (7-18); Bilirubin, Total 0.5 mg/dL (0.2-1.0); CO2 17.7 mmol/L (21.0-32.0); Calcium 8.6 mg/dL (8.5-10.1); Chloride 103 mmol/L (98-107); Estimated GFR 142.54 (mL/min/1.73m2); Glucose 80 mg/dL (74-106); Potassium 3.3 mmol/L (3.5-5.1); Sodium 137 mmol/L (136-145); Total Protein 6.7 g/dL (6.4-8.2)
[2025-03-10] MEDS: POTASSIUM CHLORIDE 10 MEQ/100 ML BAG 100 MEQ IV_INF (10:58)
[2025-03-10] MEDS: Normal Saline 1,000 ML 1000 ML IV (10:58)
[2025-03-10 12:25] VITALS: BP 113/65; PULSE 93; RESP 12; O2SAT 100
== END 2025-03-10 12:29 | disposition home or self-care (01) ==
PROVIDERS: Emergency Provider Physician Assistant; PCP Nurse Practitioner Family
DX: O21.2 Late vomiting of pregnancy (principal); Z3A.32 32 weeks gestation of pregnancy
CPT/HCPCS: 99283; 99284; 96374; 36415; 80053; 96361; 85025; J2405; J3480

== ENCOUNTER 2025-05-27 18:57 | Observation (INO) | payer MEDICAID, SELFPAY ==
[2025-05-27] VITALS (87 sets, daily range): BP systolic 95–114; BP diastolic 35–74; PULSE 97–129; RESP 13–29; TEMP 36.9–39.4; O2SAT 95–99
--- NOTE | 2025-05-27 19:22 | W.ED.GENAD ---
Discharge Plan Disposition Patient Disposition: Admit to [facility] Condition: Stable Discharge Details Clinical Impression: Mastitis, Urinary tract infection, Sepsis Primary Care Provider: Anila Ruiz ED Provider: Rene Osman Home Meds and New Rx's Prescriptions: No Action albuterol sulfate [Ventolin HFA] 90 mcg/actuation HFA aerosol inhaler 2 puff INHALATION Q4H PRN Patient Comments: INHALE 2 PUFFS BY MOUTH EVERY 4 HOURS FOR 6 HOURS NEEDED FOR COUGHING ferrous gluconate 324 mg (38 mg iron) tablet 324 mg PO DAILY Patient Comments: TAKE ONE TABLET BY MOUTH EVERY DAY ondansetron 4 mg tablet,disintegrating 4 mg PO Q8H PRN (Reason: nausea and vomiting) Qty: 10 0RF HPI General Date/Time Provider Initiated Documentation: 05/27/25 19:16. HPI Narrative: 25 year-old female presents to ED today by POV/ambulating with her friend with a chief complaint of bilateral breast pain- L > R, redness, some purulent in the setting of 3 weeks post- from her first child- breast pumping, not breast feeding with onset today. Patient has noticed less secretion of milk today. Quality described as very painful tender red breasts, no radiation to nausea/vomiting, endorses fever, endorses fast heart rate, some purulent . Severity is described as severe. Palliating factors include nothing specific attempted. Provoking factors include nothing specific. Patient not anticoagulated. Related Data Home Medications ?Medication ?Instructions ?Recorded ?Confirmed albuterol sulfate 90 mcg/actuation 2 puff inhalation Q4H PRN 01/16/25 03/10/25 aerosol inhaler (Ventolin HFA) ferrous gluconate 324 mg (38 mg 324 mg PO DAILY 03/10/25 03/10/25 iron) tablet ondansetron 4 mg disintegrating 4 mg PO Q8H PRN nausea and 03/10/25 tablet vomiting #10 tabs Previous Rx's ?Medication ?Instructions ?Recorded ondansetron 4 mg disintegrating 4 mg PO Q8H PRN nausea and 03/10/25 tablet vomiting #10 tabs Allergies Allergy/AdvReac Type Severity Reaction Status Date / Time amoxicillin AdvReac Intermediate vomiting Verified 03/10/25 09:33 doxycycline AdvReac Intermediate vomiting Verified 03/10/25 09:33 General Stated Complaint: Fever SIS: 3 Review of Systems All systems reviewed & are unremarkable except as noted in HPI and below Exam Narrative Exam Narrative: GENERAL APPEARANCE: Well-nourished, toxic, awake and alert, atraumatic, mild acute distress. SKIN: Warm, pink, dry, intact, without rashes/lesions/ulcerations. HEAD: Normocephalic, atraumatic, normal hair distribution for gender/age. EYES: Normal conjunctiva, no exudates on lids/lashes. ENT: Nares patent, no circumoral cyanosis, no facial swelling NECK: Supple, trachea midline, painless cervical ROM. LUNGS/CHEST: Lungs CTA bilaterally, non-labored respirations, normal A/P diameter, symmetrical expansion, no chest wall deformity, engorged breasts bilaterally with exquisite tenderness and erythema with some milky discharge at the left nipple, no large fluctuant swelling HEART (CV/PV): Regular rate and rhythm without murmur-tachycardic, no peripheral edema, no JVD. ABDOMEN: Soft, non-distended, no guarding, no tenderness. MSK: Normal ROM, no swelling/deformity to bilateral UEs or LEs, moving all extremities without weakness, no cyanosis, spine midline without tenderness, normal curvature. NEURO: Mental Status AAOx4 - alert to person, place, time, events No facial droop, no forehead involvement. Motor: No focal weakness - strength 5/5 in bilateral UEs and LEs, proximal and distal, symmetric. Sensory: sensation intact to light touch globally. Gait normal: patient ambulated without ataxia into ED room. PSYCH: euthymic, cooperative, pleasant, appropriate speech Course Vital Signs Vital signs: Vital Signs Temperature 39.4 C H 05/27/25 19:02 Pulse 129 H 05/27/25 19:02 Respiratory Rate 22 05/27/25 19:02 Blood Pressure 114/74 05/27/25 19:02 Pulse Oximetry 98 05/27/25 19:02 Temperature 39.4 C H 05/27/25 19:05 Temperature Source Oral 05/27/25 19:05 Pulse 129 H 05/27/25 19:05 Respiratory Rate 22 05/27/25 19:05 Blood Pressure 114/74 05/27/25 19:05 Blood Pressure Position Sitting 05/27/25 19:05 Pulse Oximetry 98 05/27/25 19:05 Oxygen Delivery Method Room Air 05/27/25 19:05 Oxygen Flow Rate 0 05/27/25 19:05 Pain Level 8 05/27/25 19:05 Medical Decision Making This dictation utilizes [id number] dictation software and may contain unedited grammatical errors. 25 year-old female presents to ED today by POV/ambulating with her friend with a chief complaint of bilateral breast pain- L > R, redness, some purulent in the setting of 3 weeks post- from her first child- breast pumping, not breast feeding with onset today. Patient has noticed less secretion of milk today. Quality described as very painful tender red breasts, no radiation to nausea/vomiting, endorses fever, endorses fast heart rate, some purulent . Severity is described as severe. Palliating factors include nothing specific attempted. Provoking factors include nothing specific. Patients' medical history: Miscarriage within the last 12 months, GERD, anorexia nervosa, bipolar 1. Family and social history: Feels safe at home, has been using a breast pump once every 3-4 hours notices a reduction in amounts today, denies EtOH or drug use, eating normal diet. Pertinent exam findings / vital signs include purulent discharge at the L nipple, bilateral redness of breasts, exquisite tenderness, tachycardic with benign pulmonary exam, benign abdomen. Differential / pathologies of concern include mastitis, sepsis, abscess. Diagnostic studies of: -CBC, CMP, lactate, troponin, lipase, magnesium, blood cultures, urinalysis, wound culture. - Lactate 2.1 - UTI and micro shows greater than 50 WBCs - Wound culture nonconclusive - CMP unremarkable with mild hypokalemia which was repleted p.o. and mild hypomagnesemia which would replete with normal p.o. intake, lipase negative, troponin negative Interventions of: -1L IVF NS, 2g IV cefepime, 20mg/kg IV loading dose vancomycin, discussed with OBGYN on-call Dr. Ramsey for admit @ 2009- accepted. ED Course/Assessment/Plan: 25-year-old female that is 3 weeks delivered at [facility] presents with bilateral mastitis meeting sepsis criteria with tachycardia and lactic acidosis of 2.1, also has significant UTI with greater than 50 WBCs. Admitted to the center for treatment for bilateral mastitis meeting sepsis criteria, antibiotics given, OB provider aware, Tylenol given here. Disposition of Mastitis, Urinary Tract Infection, Sepsis. Patient verbalized understanding of the plan and return to ED criteria and engaged in shared decision making. Medical Records Medical records reviewed: Yes I reviewed the patient's medical records. Lab Data Lab results reviewed: Yes I reviewed the patient's lab results. Labs: 05/27/25 19:30 Breast - Left Wound Culture - Pending 05/27/25 19:30 Breast - Left Gram Stain - Final 05/27/25 19:36 Urine - Reflex from Ua Urine Culture - Pending 05/27/25 19:20 Blood Blood Culture - Pending 05/27/25 19:15 Blood Blood Culture - Pending Laboratory Tests Range/Units 05/27/25 05/27/25 05/27/25 19:15 19:23 19:36 WBC (4.4-10.8) 10^3/uL 7.12 RBC (3.93-5.22) 10^6/uL 4.18 Hgb (11.2-15.7) g/dL 11.0 L Hct (36.0-46.0) % 34.4 L MCV (80-95) fL 82 MCH (27.0-33.0) pg 26.3 L MCHC (32.0-36.0) % 32.0 RDW (11.7-14.6) % 16.7 H Plt Count (130-400) 10^3/uL 255 MPV (8.0-11.0) fL 11.1 H Immature Gran % % 0.4 Neutrophils % % 86.7 Lymphocytes % % 8.7 Monocytes % % 3.7 Eosinophils % % 0.1 Basophils % % 0.4 Nucleated RBC % (0.0-0.3) % 0.0 Absolute Neutrophils (1.2-6.7) 10^3/uL 6.17 Absolute Lymphocytes (1.2-3.4) 10^3/uL 0.62 L Absolute Monocytes (0.1-0.8) 10^3/uL 0.26 Absolute Eosinophils (0.0-0.7) 10^3/uL 0.01 Absolute Basophils (0.0-0.2) 10^3/uL 0.03 VBG Lactate (<or=2.0) mmol/L 2.1 Sodium (136-145) mmol/L 135 L Potassium (3.5-5.1) mmol/L 3.0 L Chloride (98-107) mmol/L 100 Carbon Dioxide (21.0-32.0) mmol/L 25.2 Anion Gap (3-11) mmol/L 9.8 BUN (7-18) mg/dL 8 Creatinine (0.55-1.02) mg/dL 0.8 Est GFR (CKD-EPI 2020) (mL/min/1.73m2) 105.45 Glucose (74-106) mg/dL 100 Calcium (8.5-10.1) mg/dL 8.8 Magnesium (1.8-2.4) mg/dL 1.7 L Total Bilirubin (0.2-1.0) mg/dL 0.4 AST (15-37) U/L 15 ALT (14-59) U/L 45 Alkaline Phosphatase (46-116) U/L 127 H Troponin I (<or=51) ng/L 4 Total Protein (6.4-8.2) g/dL 6.8 Albumin (3.4-5.0) g/dL 3.2 L Lipase (<78) U/L 47 Urine Color (Yellow) Yellow Urine Clarity (Clear) Clear Urine pH (5-8) 6.0 Ur Specific [place] (1.005-1.025) 1.025 Urine Protein (Neg-Trace) mg/dL 100 H Urine Ketones (Negative) mg/dL Negative Urine Blood (Negative) Trace-intact H Urine Nitrite (Negative) Negative Urine Bilirubin (Negative) Small H Urine Urobilinogen (Up to 0.2) mg/dL 1.0 H Ur Leukocyte Esterase (Negative) Negative Urine RBC (0-2) HPF >50 H Urine WBC (0-5) HPF >50 H Ur Epithelial Cells (Negative) HPF Few Urine Crystals (Negative) HPF Negative Urine Bacteria (Negative) HPF Moderate Urine Casts (Negative) LPF Negative Urine Mucus (Negative) Negative Ur Culture Indicated? Yes Urine Glucose (Negative) mg/dL Negative PFSH All Active Problems (Updated 05/27/25 @ 20:44 by DARIEL Chatman) Sepsis (Acute) Urinary tract infection (Acute) Mastitis (Acute) Vulvovaginal candidiasis (Acute) Third trimester bleeding (Acute) Vaginal bleeding during (Acute) Miscarriage (Acute) Smoker (Acute) Painful orthopaedic hardware (Acute) S/P medial patellofemoral ligament reconstruction (Acute) Dysmenorrhea (Acute) Encounter for screening examination for sexually transmitted disease (Acute) Irregular menstrual cycle (Acute) Anorexia nervosa, binge-eating purging type, extreme (Acute) Bipolar 1 disorder (Acute) Anxiety (Chronic) Depression (Chronic) Asthma (Chronic) Medical History Miscarried within last 12 months IUD surveillance (06/26/22) jada Patient desires Oligomenorrhea Migraine Esophagitis Contusion of left wrist GERD (gastroesophageal reflux disease) Chronic abdominal pain Chronic nausea Contraception 2018. Nexplanon. 2019. Discontinued out of concern it may interfere with psych meds. 2019. DepoProvera. Irreg bleeding. 2019. Nexplanon reinserted. 03/2021. Nexplanon removed 2/2 irreg menses. Rx for NuvaRing. 05/23/21. NuvaRing kept falling out. Xulane patch. Lumbago of lumbar region with sciatica Patellofemoral disorders, left knee Bone spur of other site Left knee, superior medial patella Surgical History History of esophagogastroduodenoscopy (EGD) (~05/2021) Hx of arthroscopic knee surgery Tonsillectomy and adenoidectomy age 10 Family History Maternal Aunt MTHFR mutation Maternal Cousin MTHFR mutation Other Cancer Diabetes Social History Smoking/Tobacco Use Status: Current every day Tobacco Type: e-cigarettes Smoking risk assessment performed?: Yes Alcohol Intake: former Drug use: Never Substance use type: does not use Household members: other Details: [facility] Housing: house Number of Children: 0 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
[2025-05-27 19:36] LABS: Abs Immature Grans 0.03 10^3/uL (0.0-0.06); HCT 34.4 % (36.0-46.0); HGB 11.0 g/dL (11.2-15.7); Immature Grans % 0.4 %; MCH 26.3 pg (27.0-33.0); MCHC 32.0 % (32.0-36.0); MCV 82 fL (80-95); MPV 11.1 fL (8.0-11.0); Platelet Count 255 10^3/uL (130-400); RBC 4.18 10^6/uL (3.93-5.22); RDW 16.7 % (11.7-14.6); RDW-SD 50.0 fL; WBC 7.12 10^3/uL (4.4-10.8)
[2025-05-27] MEDS: ACETAMINOPHEN 1,000 MG/100 ML BAG 400 MG IVPB (19:45)
[2025-05-27] MEDS: Normal Saline 1,000 ML 1000 ML IV (19:46)
[2025-05-27] MEDS: VANCOMYCIN 1,000 MG in Normal Saline 500 ML 333.3333 MG IVPB (19:48)
[2025-05-27 19:51] LABS: ALT 45 U/L (14-59); AST 15 U/L (15-37); Albumin 3.2 g/dL (3.4-5.0); Alkaline Phosphatase 127 U/L (46-116); Anion Gap 9.8 mmol/L (3-11); BUN 8 mg/dL (7-18); Bilirubin, Total 0.4 mg/dL (0.2-1.0); CO2 25.2 mmol/L (21.0-32.0); Calcium 8.8 mg/dL (8.5-10.1); Chloride 100 mmol/L (98-107); Estimated GFR 105.45 (mL/min/1.73m2); Glucose 100 mg/dL (74-106); Lipase 47 U/L (<78); Magnesium 1.7 mg/dL (1.8-2.4); Potassium 3.0 mmol/L (3.5-5.1); Sodium 135 mmol/L (136-145); Total Protein 6.8 g/dL (6.4-8.2); Troponin I 4 ng/L (<or=51)
[2025-05-27 20:03] LABS: Glucose Negative (Negative)
[2025-05-27] MEDS: Albuterol 2.5 MG/3 ML INH SOLN VIAL UPD (20:18)
[2025-05-27] MEDS: CEFEPIME 2 GM in Normal Saline 100 ML IVPB (20:18)
[2025-05-27] MEDS: Potassium Chloride 20 MEQ TABCR 40 MEQ PO (20:19)
[2025-05-27 20:20] LABS: C & S Indicated? Yes; RBC >50 HPF (0-2); WBC >50 HPF (0-5)
--- NOTE | 2025-05-27 22:06 | OBCE_ITS ---
Date of service: 05/27/25 Time of Service: 22:06 Assessment and Plan Assessment and plan (1) Mastitis: Status: Acute Assessment and plan: 25yo P1 who is 3wks pp and presents with mastitis of the right breast. On her initial presentation to the ED she had signs of sepsis including a fever of 103, tachycardia and lactate of 2.1. She has a normal WBC. She received Vancomycin and Cefepime, 1g Tylenol Mag/K replacement and 1L IVF while in the ED. Since arrival to the Center she is no longer tachycardic and is now afebrile. Her BPs remain stable. She was noted to be very engorged but hadn't pumped in 7hrs at that point. She will continue tylenol/ibuprofen as needed for fever or pain. She will be encouraged to pump every 3hrs and given ice to help decrease inflammation. We will repeat labs in the am. She will be observed for further s/s of sepsis. She will continue abx, IV vs PO based on her clinical picture in the am. History of Present Illness History of Present Illness Chief Complaint: mastitis Narrative: Pt is a 25yo who is now 3wks pp s/p NVD @[facility] on Apr 06. She initially started breast-feeding her daughter but says that she struggled to latch because her breasts were so engorged so she switched to pumping and bottle feeding the breast milk. She normally would pump about 5-8oz at a time but this week her supply has decreased some. She reports that her left breast has been sore and felt engorged for about 3 days and she has had intermittent fevers up to 102. She has been pumping every 3-4hrs. Just today her right breast began to be sore as well, primarily at one location at 8o clock on the right breast. She noticed faint redness there today. She has had intermittent headaches all week. She denies cough, congestion or sore throat. She denies burning/pain with urination. She says her bleeding has stopped. She had a 2nd degree tear that she says is healing well. Upon arrival to the [facility] center, she had not pumping in about 7hrs. Review of Systems Genitourinary Genitourinary: Reports system reviewed and no additional complaints, except as documented PFSH All Active Problems (Updated 05/27/25 @ 22:40 by Latanya Ramsey MD) Sepsis (Acute) Urinary tract infection (Acute) Mastitis (Acute) Smoker (Acute) Painful orthopaedic hardware (Acute) S/P medial patellofemoral ligament reconstruction (Acute) Anorexia nervosa, binge-eating purging type, extreme (Acute) Bipolar 1 disorder (Acute) Anxiety (Chronic) Depression (Chronic) Asthma (Chronic) Medical History (Updated 05/27/25 @ 22:40 by Latanya Ramsey MD) Migraine Esophagitis Contusion of left wrist GERD (gastroesophageal reflux disease) Chronic abdominal pain Chronic nausea Contraception 2018. Nexplanon. 2019. Discontinued out of concern it may interfere with psych meds. 2019. DepoProvera. Irreg bleeding. 2019. Nexplanon reinserted. 03/2021. Nexplanon removed 2/2 irreg menses. Rx for NuvaRing. 05/23/21. NuvaRing kept falling out. Xulane patch. Lumbago of lumbar region with sciatica Patellofemoral disorders, left knee Bone spur of other site Left knee, superior medial patella Surgical History History of esophagogastroduodenoscopy (EGD) (~05/2021) Hx of arthroscopic knee surgery Tonsillectomy and adenoidectomy age 10 Family History Maternal Aunt MTHFR mutation Maternal Cousin MTHFR mutation Other Cancer Diabetes Social History Smoking/Tobacco Use Status: Current every day Tobacco Type: e-cigarettes Smoking risk assessment performed?: Yes Alcohol Intake: former Drug use: Never Substance use type: does not use Household members: other Details: [facility] Housing: house Number of Children: 0 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 Const General: cooperative, healthy appearing and no acute distress HENMT Head: normocephalic and atraumatic Ears: hearing grossly normal bilaterally Chest Other: Bilateral breast engorgement noted. No distinct skin changes on left breast. Right breast with a faint area of redness at 8o clock that was tender to touch. Otherwise there was mild tenderness due to engorgement but no other point tenderness. No e/o abscess. Spontaneous leakage of milk from both breasts was noted. Resp Effort & Inspection: normal respiratory effort and able to speak in complete sentences Neuro General: patient alert and patient awake Psych Appearance: grossly normal Mental Status: mental status grossly normal Speech and Movement: speech and movement normal Affect: normal affect Attitude: cooperative Thought Process: normal Thought Content: normal Results Last Vital Signs Temp 99.5 F 05/27/25 21:40 Pulse 97 H 05/27/25 21:40 Resp 17 05/27/25 21:40 BP 109/35 L 05/27/25 21:40 Pulse Ox 97 05/27/25 21:40 Labs 05/27/25 19:15 05/27/25 19:15 Labs: Laboratory Results - last 24 hr 05/27/25 05/27/25 05/27/25 19:15 19:23 19:36 WBC 7.12 RBC 4.18 Hgb 11.0 L Hct 34.4 L MCV 82 MCH 26.3 L MCHC 32.0 RDW 16.7 H Plt Count 255 MPV 11.1 H Immature Gran % 0.4 Neutrophils % 86.7 Lymphocytes % 8.7 Monocytes % 3.7 Eosinophils % 0.1 Basophils % 0.4 Nucleated RBC % 0.0 Absolute Neutrophils 6.17 Absolute Lymphocytes 0.62 L Absolute Monocytes 0.26 Absolute Eosinophils 0.01 Absolute Basophils 0.03 VBG Lactate 2.1 Sodium 135 L Potassium 3.0 L Chloride 100 Carbon Dioxide 25.2 Anion Gap 9.8 BUN 8 Creatinine 0.8 Est GFR (CKD-EPI 2020) 105.45 Glucose 100 Calcium 8.8 Magnesium 1.7 L Total Bilirubin 0.4 AST 15 ALT 45 Alkaline Phosphatase 127 H Troponin I 4 Total Protein 6.8 Albumin 3.2 L Lipase 47 Urine Color Yellow Urine Clarity Clear Urine pH 6.0 Ur Specific [place] 1.025 Urine Protein 100 H Urine Ketones Negative Urine Blood Trace-intact H Urine Nitrite Negative Urine Bilirubin Small H Urine Urobilinogen 1.0 H Ur Leukocyte Esterase Negative Urine RBC >50 H Urine WBC >50 H Ur Epithelial Cells Few Urine Crystals Negative Urine Bacteria Moderate Urine Casts Negative Urine Mucus Negative Ur Culture Indicated? Yes Urine Glucose Negative
[2025-05-28 00:45] VITALS: BP 107/64; PULSE 100; RESP 18; TEMP 37.6; O2SAT 100
[2025-05-28] MEDS: Ibuprofen 600 MG TAB PO ×3 (00:50→13:38)
[2025-05-28] MEDS: Lactated Ringers 1,000 ML 125 ML IV (00:58)
[2025-05-28 04:15] VITALS: BP 91/58; PULSE 81; RESP 16; TEMP 36.1; O2SAT 99
[2025-05-28 05:15] VITALS: TEMP 36.3
[2025-05-28 07:14] LABS: Abs Immature Grans 0.03 10^3/uL (0.0-0.06); HCT 29.5 % (36.0-46.0); HGB 9.3 g/dL (11.2-15.7); Immature Grans % 0.5 %; MCH 26.7 pg (27.0-33.0); MCHC 31.5 % (32.0-36.0); MCV 85 fL (80-95); MPV 10.5 fL (8.0-11.0); Platelet Count 191 10^3/uL (130-400); RBC 3.48 10^6/uL (3.93-5.22); RDW 16.8 % (11.7-14.6); RDW-SD 52.5 fL; WBC 5.80 10^3/uL (4.4-10.8)
[2025-05-28 07:38] LABS: ALT 36 U/L (14-59); AST 16 U/L (15-37); Albumin 2.4 g/dL (3.4-5.0); Alkaline Phosphatase 99 U/L (46-116); Anion Gap 8.8 mmol/L (3-11); BUN 9 mg/dL (7-18); Bilirubin, Total 0.3 mg/dL (0.2-1.0); CO2 26.2 mmol/L (21.0-32.0); Calcium 8.3 mg/dL (8.5-10.1); Chloride 109 mmol/L (98-107); Estimated GFR 128.46 (mL/min/1.73m2); Glucose 111 mg/dL (74-106); Potassium 3.4 mmol/L (3.5-5.1); Sodium 144 mmol/L (136-145); Total Protein 5.3 g/dL (6.4-8.2)
--- NOTE | 2025-05-28 08:58 | W.PM.PROGNOT ---
Date of Service Date of service: 05/28/25 Time of Service: 08:58 Assessment and Plan Assessment and plan (1) Mastitis: Status: Acute Assessment and plan: Patient was admitted to the hospital last night with high fevers, and mastitis. She was placed empirically on IV antibiotics. She will be transition to oral antibiotics today. She will continue to pump to supply breastmilk for her . consultation today. If patient remains afebrile, feeling better, discharge home with short interval follow-up. All questions answered (2) History of vacuum extraction assisted delivery: Subjective Subjective Interval history since last seen: Patient seen and examined this morning. Overall feeling better. Her laboratory studies are appropriate. Her white count is still normal. Her lactate did return to normal. She has thus far this morning been afebrile. Her pain is improved. She has been taking Tylenol and ibuprofen. She is working on pumping. Exam Const General: cooperative, healthy appearing, comfortable, no acute distress and well developed HENMT Head: normal to inspection Eyes General: appearance normal, both eyes and all related structures Chest Other: Patient has overall breast engorgement. On the right breast from the 6 to 9 o'clock position there is some erythema and warmth. There is no fluctuance or abscess appreciated. Left breast is similar with erythema from the 3:00 to 9 o'clock position, somewhat firm, tender to the touch, though nonfluctuant. Resp Effort & Inspection: normal respiratory effort Auscultation: clear to auscultation bilaterally Cardio Rate: regular rate Rhythm: regular rhythm Objective Last Vital Signs Temp 97.3 F L 05/28/25 05:15 Pulse 81 05/28/25 04:15 Resp 16 05/28/25 04:15 BP 91/58 L 05/28/25 04:15 Pulse Ox 99 05/28/25 04:15 Laboratory Results - last 24 hr 05/27/25 05/27/25 05/27/25 19:15 19:23 19:36 WBC 7.12 RBC 4.18 Hgb 11.0 L Hct 34.4 L MCV 82 MCH 26.3 L MCHC 32.0 RDW 16.7 H Plt Count 255 MPV 11.1 H Immature Gran % 0.4 Neutrophils % 86.7 Lymphocytes % 8.7 Monocytes % 3.7 Eosinophils % 0.1 Basophils % 0.4 Nucleated RBC % 0.0 Absolute Neutrophils 6.17 Absolute Lymphocytes 0.62 L Absolute Monocytes 0.26 Absolute Eosinophils 0.01 Absolute Basophils 0.03 VBG Lactate 2.1 Sodium 135 L Potassium 3.0 L Chloride 100 Carbon Dioxide 25.2 Anion Gap 9.8 BUN 8 Creatinine 0.8 Est GFR (CKD-EPI 2020) 105.45 Glucose 100 Calcium 8.8 Magnesium 1.7 L Total Bilirubin 0.4 AST 15 ALT 45 Alkaline Phosphatase 127 H Troponin I 4 Total Protein 6.8 Albumin 3.2 L Lipase 47 Urine Color Yellow Urine Clarity Clear Urine pH 6.0 Ur Specific [place] 1.025 Urine Protein 100 H Urine Ketones Negative Urine Blood Trace-intact H Urine Nitrite Negative Urine Bilirubin Small H Urine Urobilinogen 1.0 H Ur Leukocyte Esterase Negative Urine RBC >50 H Urine WBC >50 H Ur Epithelial Cells Few Urine Crystals Negative Urine Bacteria Moderate Urine Casts Negative Urine Mucus Negative Ur Culture Indicated? Yes Urine Glucose Negative 05/28/25 06:55 WBC 5.80 RBC 3.48 L Hgb 9.3 L Hct 29.5 L MCV 85 MCH 26.7 L MCHC 31.5 L RDW 16.8 H Plt Count 191 MPV 10.5 Immature Gran % 0.5 Neutrophils % 78.5 Lymphocytes % 12.9 Monocytes % 6.2 Eosinophils % 1.4 Basophils % 0.5 Nucleated RBC % 0.0 Absolute Neutrophils 4.55 Absolute Lymphocytes 0.75 L Absolute Monocytes 0.36 Absolute Eosinophils 0.08 Absolute Basophils 0.03 VBG Lactate 0.8 Sodium 144 Potassium 3.4 L Chloride 109 H Carbon Dioxide 26.2 Anion Gap 8.8 BUN 9 Creatinine 0.6 Est GFR (CKD-EPI 2020) 128.46 Glucose 111 H Calcium 8.3 L Magnesium Total Bilirubin 0.3 AST 16 ALT 36 Alkaline Phosphatase 99 Troponin I Total Protein 5.3 L Albumin 2.4 L Lipase Urine Color Urine Clarity Urine pH Ur Specific [place] Urine Protein Urine Ketones Urine Blood Urine Nitrite Urine Bilirubin Urine Urobilinogen Ur Leukocyte Esterase Urine RBC Urine WBC Ur Epithelial Cells Urine Crystals Urine Bacteria Urine Casts Urine Mucus Ur Culture Indicated? Urine Glucose Time Spent with Patient Time Spent with Patient: 35-49 minutes Time was spent: preparing to see the patient(eg.review tests), obtaining and/or reviewing separately otained hiistory, ordering medications,tests, procedures, referring, communicating with other health director of home care hospice, indepentently interpreting results and counseling the patient
[2025-05-28] MEDS: Acetaminophen 325 MG TAB 650 MG PO ×2 (10:04→16:05)
[2025-05-28 10:23] VITALS: BP 98/61; PULSE 71; RESP 17; TEMP 36.9; O2SAT 99
--- NOTE | 2025-05-28 10:31 | LC.LAC2 ---
Date of service: 05/28/25 Time of Service: 08:30 Note Note: ?I had breast pain and fever. It got so bad I couldn't even lift my child.? 05/24 evening -05/27 evening, when she presented to the [facility] ED. Reports increasing breast discomfort right and then left breast also, pain started in the upper outer quadrants, fever to 102. Progressive breast swelling, firmness, generalized erythema, ?plugged ducts?. Systemic: fever, headache, flu-like symptoms. Treatments tried: hot compresses, hot showers, increased pumping frequency and duration, deep massage. Some temporary relief and then increasing pain. History , 3 weeks , s/p @ [facility], 04/06/2025. Some initial latch at breast and prefers to feed expressed milk, declines to feed at breast. Reports pumping every 3-4 hours and with reviewing her activity, is expressing 4-5-6 x/day, with ?s feedings. She has a Spectra S2 at home and a mom cozy. She relied on the mom cozy, expressing for up to 30 min, 5-8 oz from each side. With onset of pain, she used her Spectra pump, increased frequency and decreased duration to 15-20 min. takes 4-5 oz of milk at feedings about 6 times a day, increased cluster feeding during the day, sleeps well at night ? 4-5 h interval. Reyna is freezing excess milk. Nipples: reports blisters on nipples from increased suction and spontaneous with plugged nipples, denies pin-point pain at blister site. Pt is afebrile now, breasts are visually symmetrical with prevalent prominent venation, are generally firm, skin indents easily? to maternal manipulation. Right breast has an erithemic oval at 3 o?clock extending from nipple to sternum, pain with palpation, no induration, no mass or lesion. Nipples: Everted, medium diameter, medium/long shaft length, hx of nipple piercings bilaterally at 10 and 2, no inflammation. Scattered papillary edema, no visible blebs. Skin is otherwise intact. Right nipple has a ?mole? at 11 o?clock on the nipple shaft. [place]ola with expected Rivera glands, no erythema, masses or lesions, skin intact. Indents easily to palpation. Mastitis & Oversupply: Reviewed physiology of engorgement, plugged ducts, mastitis, and risks for excessive supply including irregular or long intervals between pumping, excessive pump duration, application of heat and deep massage. Advised treating engorgement with cool between feedings, instructed about lymphatic massage. Milk expression: advised regular expression starting every 3 hours, start of one to the start of the next, and pumping duration to match what will eat at a feeding (28-32 oz per day). Advised excessive milk expression will increase inflammation, and that she can anticipate that she will have more flexilbility as the mastitis resolves. Advised that her breasts may become engorged again, and following this interventions will decreased risk for future mastitis. Reinforced her choice about feeding methods and advised benefits of feeding at breast to decrease inflammation. Advised comfort measures: scheduled ibuprofen, cool after pumping, lymphatic massage as needed with engorgement. Advised self-care: rest, balanced diet, fluids. Advised potential for yeast infection secondary to antibiotics and advised yogurt, limited sugar and phone call to provider if symptoms. Reyna states comfort with information. Nursing is supporting her to express milk regulary and implement comfort measures. Handouts: iABLE: Managing Plugged Ducts, Managing High Milk Production, ABM Mastitis. Education Written Materials Provided: Mastitis, Engorgement and Other (Plugged ducts, oversupply) Subjective Identifiers Parent's Name: Reyna Concerns Parental Concerns: mastitis, desires feeding expressed breastmilk Provider Concerns: mastitis, support parent feeding plan Indications for Referral Medical Condition or Anomaly (Sepsis,RICHARD): Yes Seperation of Mother/Infant: Yes Milk Expression Required (BF): Yes Has Referral to Infant Feeding Services Been Made?: Yes Background Experience: First Time Support: Supportive Family Feeding Preference: Expressed Breast Milk Pump Availability: Has Pump (Spectra S2 and mom cozy) Current Experience: Established Supplementation with EBM by Bottle Maternal Risk Factors: Primiparity and Breast Problems Maternal Hx Medical Hx: (1) Mastitis: Status: Acute Assessment and plan: 25yo P1 who is 3wks pp and presents with mastitis of the right breast. On her initial presentation to the ED she had signs of sepsis including a fever of 103, tachycardia and lactate of 2.1. She has a normal WBC. She received Vancomycin and Cefepime, 1g Tylenol Mag/K replacement and 1L IVF while in the ED. Since arrival to the Center she is no longer tachycardic and is now afebrile. Her BPs remain stable. She was noted to be very engorged but hadn't pumped in 7hrs at that point. She will continue tylenol/ibuprofen as needed for fever or pain. She will be encouraged to pump every 3hrs and given ice to help decrease inflammation. We will repeat labs in the am. She will be observed for further s/s of sepsis. She will continue abx, IV vs PO based on her clinical picture in the am. History of Present Illness History of Present Illness Chief Complaint: mastitis Narrative: Pt is a 25yo who is now 3wks pp s/p NVD @[facility] on Apr 06. She initially started breast-feeding her daughter but says that she struggled to latch because her breasts were so engorged so she switched to pumping and bottle feeding the breast milk. She normally would pump about 5-8oz at a time but this week her supply has decreased some. She reports that her left breast has been sore and felt engorged for about 3 days and she has had intermittent fevers up to 102. She has been pumping every 3-4hrs. Just today her right breast began to be sore as well, primarily at one location at 8o clock on the right breast. She noticed faint redness there today. She has had intermittent headaches all week. She denies cough, congestion or sore throat. She denies burning/pain with urination. She says her bleeding has stopped. She had a 2nd degree tear that she says is healing well. Upon arrival to the center, she had not pumping in about 7hrs. Delivery Hx Type of Delivery: Vaginal Infant Gender: Female Gestational Status: Term (39-41.6 wks) Infant Hx Hx: Per maternal report was 6# at , RTBW and at 3 weeks of age exceeds 8#. Feeding: every 3-4 hours, takes 4 oz of expressed milk, has started clusterfeeding. Transfers milk from a bottle without issue. She has been gassy. Output is numerous voids and stools, stools are yellow and frothy. Objective Note: Feeding 4-5 oz every 3-4 hours, cluster feeding during the day. Longest interval between feeding is 4-5 hours. Reyna pumps with feedings and expresses 5-8 oz, freezing the remainder. Prior to this week she was using her hands free mom simony and pumps for 30 min (pump setting). With onset of pain and fever, 05/25 used her spectra S2 and pumped for 15-20 min. Reyna reports increasing pumping frequency to manage breast symptoms. Feeding/Pumping History Feeding Concerns: Frequency<8 Feeds per Day and Longest Interval>6 Hrs Supplement Reason For Supplementation: Maternal Choice-informed/counseled Fluid: Expressed Breast Milk Route: Paced Bottle Frequency (In 24 Hours): 6 Volume (mls): 150 (4-5 oz per feeding.) Summary Summary: Intake more than expected for day of life and Fussy Milk Expression History Indications: Maternal Request Pump Type: Personal Pump(specify) Pattern: Double-Pump Phase: Maintenance Pump Frequency (In 24 Hours): 6 Duration: 15-30 min Comment: 150-240 ml expressed per pumping Pumping Assessement Optimal/Concerns Pumping Concerns: Frequency is <8 pumpings a day, Duration is >30 minutes, Volume is Inconsistent with Infants Age (Excess) and Mom Experiences Discomfort or Nipple Trauma Results Weight/I&O Weight Change: Weight 48.081 kg Optimal Weight Changes: AGA (per maternal report, not present during interview) and Weight loss less than 5% in 24 hours (first 4-5 days) 3% LPI Weight Concern: 0-2 month ? daily weight gain is > 47 grams per day (per maternal report, 2 lbs over weight at 3 wks of age) I&O: 05/26/25 05/27/25 05/27/25 05/28/25 23:59 11:59 23:59 11:59 Intake Total 1700 / 1700 Balance 1700 / 1700 Intake: IV 1700 / 1700 Other: Urine Color Yellow Yellow Weight 48.081 kg Output,Optimal: Adequate Voids for Day of Life, Adequate stools for Day of Life and Stool color as expected for day of life Breast/Nipple Exam Maternal Coping: well-Confident mom balancing infants needs with selfcare Breast Exam Breast Exam: states breast comfort Breast Assessment: Abnormal Breast Exam Abnormal: Breast History (denies hx of breast procedures or hx of more than 2 c size breast changes with ) and Oversupply Oversupply: Excessive growth, Frequent breast fullness, Breast/nipple pain, Copious milk leakage, Recurrent plugged ducts, excessive wt gain and Infant GI sx Breast: Right Abnormal (3 o'clock erythematous area associated with pain, no induration or mass) : Associated with pain and Bilateral Abnormal (generalized venation; skin indents easily to maternal manipulation, ) Engorgement Initial Engorgement: severe Predisposing Factors to Mastitis Yes Factors: Nipple Trauma (nipple piercings, exclusive milk expression, no trauma from pump or infant at breast), Decreased Feeding Duration or Scheduled and Missed Feedings, Inefficient Milk Removal Pumping, Illness (mastitis) Mother, Oversupply and Partial Blockage of the Milk Duct Nipple Bleb (reports hx of blebs, has not tried) and Plugged Duct Interventions Interventions: Teach prevention and treatment of engorgment, Teach signs/symptoms/management of Mastitis, Cool between feedings, Ibuprofen, Effective Milk Removal (express to required volume, express every ), Fluid Mobilization, Supportive Measures Rest, Fluids and Nutrition and Antibiotics Nipple Exam Nipple: Bilateral Abnormal (hx bilateral nipple piercings, skin intact without masses or lesions.) : General edema Nipple Pain Pain: No Milk Supply Milk production: mature milk Milk Ejection Reflex: WNL Mother's estimate of Milk Supply: abundant to adequate
--- NOTE | 2025-05-28 12:48 | DSE_ITS ---
Date of service: 05/28/25 Time of Service: 12:49 DS: Diagnosis Discharge Diagnosis (1) Mastitis: Status: Acute Asessment and Plan: Mastitis. Doing well on dicloxacillin. Continue pumping with appropriate regime. Follow-up in the office in 1 week for plan of care and continuation. Patient desires Nexplanon for contraception. (2) History of vacuum extraction assisted delivery: Discharge Plan Disposition Patient Disposition: Home Condition: Good Discharge Details Reason For Visit: Mastitis, UTI, Sepsis Admit Date/Time: 05/27/25 20:44 Admit Provider: Latanya aRmsey Attending Provider: Latanya Ramsey [facility]: Patient seen in the emergency department with fever chills, and breast pain. She was diagnosed with mastitis. She did have an elevation in her lactate which resolved. She received IV antibiotics empirically, followed by oral antibiotics with conversion to dicloxacillin. She had a consultation has a plan of care for her ongoing pumping needs. All of her questions were answered. Prescriptions are sent to the pharmacy. Home Meds and New Rx's Prescriptions: New dicloxacillin 500 mg capsule 500 mg PO Q6H 10 Days Qty: 40 0RF ibuprofen 600 mg tablet 600 mg PO Q6H PRNQty: 90 0RF No Action pantoprazole 20 mg tablet,delayed release (DR/EC) 20 mg PO DAILY Patient Comments: TAKE ONE TABLET BY MOUTH EVERY DAY albuterol sulfate [Ventolin HFA] 90 mcg/actuation HFA aerosol inhaler 2 puff INHALATION Q4H PRN Patient Comments: INHALE 2 PUFFS BY MOUTH EVERY 4 HOURS FOR 6 HOURS NEEDED FOR COUGHING ferrous gluconate 324 mg (38 mg iron) tablet 324 mg PO DAILY Patient Comments: TAKE ONE TABLET BY MOUTH EVERY DAY ondansetron 4 mg tablet,disintegrating 4 mg PO Q8H PRN (Reason: nausea and vomiting) Qty: 10 0RF Discharge Instructions Additional Instructions: Follow-up in [facility] in 1 week Activity:: Activity as Tolerated Equipment/Supplies:: Breast pump as directed Diet:: As Tolerated DS: Summary Time Spent with Patient providing and/or coordinating discharge services: Greater than 30 minutes Status at Discharge Functional status at discharge: independent ambulation Overall status at discharge: patient is progressing back to baseline Mental Status: mental status grossly normal Speech and Movement: speech and movement normal Mood: congruent mood Affect: normal affect Exam Narrative Exam Narrative: Patient remains afebrile. See physical exam from progress note dated 05/28/2025. Psych Mental Status: mental status grossly normal Speech and Movement: speech and movement normal Mood: congruent mood Affect: normal affect DS: Data Vitals/I&O Vitals and I&O: Vital Signs Temperature 98.4 F 05/28/25 10:23 Temperature Source Oral 05/27/25 19:05 Temperature Source Tympanic 05/28/25 10:23 Pulse 71 05/28/25 10:23 Pulse Rhythm Regular 05/28/25 07:54 Respiratory Rate 17 05/28/25 10:23 Respiratory Depth Normal 05/28/25 07:54 Blood Pressure 98/61 L 05/28/25 10:23 Blood Pressure Mean 73 05/28/25 10:23 Blood Pressure Position Sitting 05/27/25 19:05 Pulse Oximetry 99 05/28/25 10:23 Oxygen Delivery Method Room Air 05/27/25 19:05 Oxygen Flow Rate 0 05/27/25 19:05 Pain Level 8 05/27/25 19:05 Comment Repeat from low temp 05/28/25 05:15 Intake & Output 05/27/25 05/28/25 05/28/25 23:59 11:59 23:59 Intake Total 1700 / 1700 1000 / 1000 Balance 1700 / 1700 1000 / 1000 Weight 106 lb 0.007 oz Intake: IV 1700 / 1700 1000 / 1000 Other: Urine Color Yellow Yellow Data Completed and Pending Labs on day of discharge: Labs from last 24 hours 05/28/25 05/27/25 05/27/25 06:55 19:36 19:23 WBC 5.80 RBC 3.48 L Hgb 9.3 L Hct 29.5 L MCV 85 MCH 26.7 L MCHC 31.5 L RDW 16.8 H Plt Count 191 MPV 10.5 Immature Gran % 0.5 Neutrophils % 78.5 Lymphocytes % 12.9 Monocytes % 6.2 Eosinophils % 1.4 Basophils % 0.5 Nucleated RBC % 0.0 Absolute Neutrophils 4.55 Absolute Lymphocytes 0.75 L Absolute Monocytes 0.36 Absolute Eosinophils 0.08 Absolute Basophils 0.03 VBG Lactate 0.8 2.1 Sodium 144 Potassium 3.4 L Chloride 109 H Carbon Dioxide 26.2 Anion Gap 8.8 BUN 9 Creatinine 0.6 Est GFR (CKD-EPI 2020) 128.46 Glucose 111 H Calcium 8.3 L Magnesium Total Bilirubin 0.3 AST 16 ALT 36 Alkaline Phosphatase 99 Troponin I Total Protein 5.3 L Albumin 2.4 L Lipase Urine Color Yellow Urine Clarity Clear Urine pH 6.0 Ur Specific [place] 1.025 Urine Protein 100 H Urine Ketones Negative Urine Blood Trace-intact H Urine Nitrite Negative Urine Bilirubin Small H Urine Urobilinogen 1.0 H Ur Leukocyte Esterase Negative Urine RBC >50 H Urine WBC >50 H Ur Epithelial Cells Few Urine Crystals Negative Urine Bacteria Moderate Urine Casts Negative Urine Mucus Negative Ur Culture Indicated? Yes Urine Glucose Negative 05/27/25 19:15 WBC 7.12 RBC 4.18 Hgb 11.0 L Hct 34.4 L MCV 82 MCH 26.3 L MCHC 32.0 RDW 16.7 H Plt Count 255 MPV 11.1 H Immature Gran % 0.4 Neutrophils % 86.7 Lymphocytes % 8.7 Monocytes % 3.7 Eosinophils % 0.1 Basophils % 0.4 Nucleated RBC % 0.0 Absolute Neutrophils 6.17 Absolute Lymphocytes 0.62 L Absolute Monocytes 0.26 Absolute Eosinophils 0.01 Absolute Basophils 0.03 VBG Lactate Sodium 135 L Potassium 3.0 L Chloride 100 Carbon Dioxide 25.2 Anion Gap 9.8 BUN 8 Creatinine 0.8 Est GFR (CKD-EPI 2020) 105.45 Glucose 100 Calcium 8.8 Magnesium 1.7 L Total Bilirubin 0.4 AST 15 ALT 45 Alkaline Phosphatase 127 H Troponin I 4 Total Protein 6.8 Albumin 3.2 L Lipase 47 Urine Color Urine Clarity Urine pH Ur Specific [place] Urine Protein Urine Ketones Urine Blood Urine Nitrite Urine Bilirubin Urine Urobilinogen Ur Leukocyte Esterase Urine RBC Urine WBC Ur Epithelial Cells Urine Crystals Urine Bacteria Urine Casts Urine Mucus Ur Culture Indicated? Urine Glucose 05/27/25 19:20 Blood Blood Culture - Pending 05/27/25 19:15 Blood Blood Culture - Pending Preliminary micro results at discharge 05/27/25 19:36 Urine - Reflex from Ua Urine Culture - Preliminary Gram positive miguel, mixed 05/27/25 19:30 Breast - Left Wound Culture - Preliminary Gram positive miguel, mixed 05/27/25 19:20 Blood Blood Culture - Pending 05/27/25 19:15 Blood Blood Culture - Pending [facility] All Active Problems (Updated 05/28/25 @ 09:01 by Macey Stratton DO) Sepsis (Acute) Urinary tract infection (Acute) Mastitis (Acute) Smoker (Acute) Painful orthopaedic hardware (Acute) S/P medial patellofemoral ligament reconstruction (Acute) Anorexia nervosa, binge-eating purging type, extreme (Acute) Bipolar 1 disorder (Acute) Anxiety (Chronic) Depression (Chronic) Asthma (Chronic) Medical History (Updated 05/28/25 @ 09:01 by Macey Stratton DO) Migraine Esophagitis Contusion of left wrist GERD (gastroesophageal reflux disease) Chronic abdominal pain Chronic nausea Lumbago of lumbar region with sciatica Patellofemoral disorders, left knee Bone spur of other site Left knee, superior medial patella Surgical History (Updated 05/28/25 @ 09:01 by Macey Stratton DO) History of vacuum extraction assisted delivery At [place], 05/22/2026 History of esophagogastroduodenoscopy (EGD) (~05/2021) Hx of arthroscopic knee surgery Tonsillectomy and adenoidectomy age 10 Family History Maternal Aunt MTHFR mutation Maternal Cousin MTHFR mutation Other Cancer Diabetes Social History Smoking/Tobacco Use Status: Current every day Tobacco Type: e-cigarettes Smoking risk assessment performed?: Yes Alcohol Intake: former Drug use: Never Substance use type: does not use Household members: other Details: [facility], [place] Housing: house Number of Children: 0 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 Do you feel safe at home: Yes Do you feel safe in your relationship?: Yes Female Reproductive History Menstrual control method: none History History 3 Para 1 Hx # Term Pregnancies 1 Multiple births Hx # Pregnancies Ectopic pregnancies AB induced Hx Number of Living Children 1 AB spontaneous 2 Time Spent with Patient Time Spent with Patient: <45 minutes Time was spent: preparing to see the patient(eg.review tests), obtaining and/or reviewing separately otained hiistory, ordering medications,tests, procedures, referring, communicating with other health home care associate and indepentently interpreting results
[2025-05-28 13:38] VITALS: BP 106/67; PULSE 74; RESP 17; TEMP 36.2; O2SAT 99
== END 2025-05-28 18:29 | disposition home or self-care (01) ==
LOC: ER 20:44 → OBS 21:55
PROVIDERS: Admitting Provider Obstetrics & Gynecology; Emergency Provider Physician Assistant; PCP Nurse Practitioner Family; Visit Provider Obstetrics & Gynecology
DX: O85 Puerperal sepsis (principal); O91.12 Abscess of breast associated with the puerperium; O99.345 Other mental disorders complicating the puerperium; F50.2 Bulimia nervosa; F31.9 Bipolar disorder, unspecified; F41.9 Anxiety disorder, unspecified; O99.53 Diseases of the respiratory system complicating the puerperium; O99.63 Diseases of the digestive system complicating the puerperium; O86.20 Urinary tract infection following delivery, unspecified; O99.355 Diseases of the nervous system complicating the puerperium; N39.0 Urinary tract infection, site not specified; J45.909 Unspecified asthma, uncomplicated; G43.909 Migraine, unspecified, not intractable, without status migrainosus; K21.9 Gastro-esophageal reflux disease without esophagitis; F17.290 Nicotine dependence, other tobacco product, uncomplicated; F53.0 Postpartum depression
CPT/HCPCS: 00123; 36415; 80053; 83690; 87040; 87077; 94640; 96365; 96366; 96367; 96368; 99285; 81003; 81015; 83605; 83735; 84484; 85025; 87070; 87086; 87186; 87205; J0131; J0692; J3373; J7613